=== PATIENT | male | born 1955 | race Caucasian/White ===

== ENCOUNTER → 2020-07-05 09:08 | Outpatient (CLI) | payer MEDICARE, OTHER, SELFPAY ==
--- NOTE | ~2020-07-05 | US_ITS ---
EXAMINATION: US aorta [facility] DATE: 07/05/2020 09:35 INDICATION: Abdominal aortic aneurysm screening. TECHNIQUE: Grayscale, color Doppler, and pulsed Doppler images of the aorta and common iliac arteries were obtained. COMPARISON: CT abdomen and pelvis 07/10/2011 FINDINGS: The aorta demonstrates a 3.6 cm fusiform infrarenal aneurysm. The common iliac arteries are not visua lized. IMPRESSION: 1. 3.6 cm fusiform infrarenal aortic aneurysm. Reviewed, dictated and finalized at location A. NFIELD REDEVELOPMENT SPECIALIST
--- NOTE | ~2020-07-05 | CT_ITS ---
EXAMINATION: CT lung screening DATE: 07/05/2020 09:40 INDICATION: Personal history of tobacco dependence, prior smoker with 60 pack year history TECHNIQUE: Computed tomography (CT) of the chest was performed without intravenous contrast. The dose -length product (DLP) was 235.83 mGy-cm. 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 COMPARISON: 07/03/2019 FINDINGS: There is a stable 6 mm nodule in the right upper lobe projecting just posterior to the righ t mainstem bronchus on image 52. A 4 mm nodule is present in the right upper lobe on image 47. No add itional pulmonary nodules are identified. The lungs are free of acute opacities. Calcified right lindsay r and mediastinal lymph nodes are consistent with old granulomatous disease. There is no pleural effu susan or pneumothorax. Calcified coronary artery atherosclerosis is noted. No pathologically enlarged thoracic lymph nodes are identified. The heart size is normal. IMPRESSION: 1. Lung-RADS category 2: Benign appearance or behavior. Continue annual screening with noncontrast lo w-dose chest CT in 12 months. Reviewed, dictated and finalized at location A. E GROOVER IMPRESSION: 1. Lung-RADS category 2: Benign appearance or behavior. Continue annual screeni ng with noncontrast low-dose chest CT in 12 months.
== END ==
PROVIDERS: PCP Family Medicine; Visit Provider Family Medicine
DX: Z13.6 Encounter for screening for cardiovascular disorders (principal); Z87.891 Personal history of nicotine dependence; I71.4 Abdominal aortic aneurysm, without rupture
CPT/HCPCS: 76706; G0297

== ENCOUNTER → 2020-12-13 09:27 | Outpatient (REF) | payer MEDICARE, OTHER, SELFPAY | LOC: ANHLAB 09:27 | PROVIDERS: PCP Family Medicine; Visit Provider Nurse Practitioner | DX: L30.9 Dermatitis, unspecified (principal); L57.0 Actinic keratosis | CPT/HCPCS: 88305; 88312 ==

== ENCOUNTER → 2020-12-29 13:30 | Outpatient (REF) | payer MEDICARE, OTHER, SELFPAY | LOC: ANHLAB 13:30 | PROVIDERS: PCP Family Medicine; Visit Provider Nurse Practitioner | DX: C44.619 Basal cell carcinoma of skin of left upper limb, including shoulder (principal) | CPT/HCPCS: 88305 ==

== ENCOUNTER 2021-06-16 00:38 | Inpatient (IN) | payer MEDICARE, OTHER, SELFPAY ==
[2021-06-16] VITALS (38 sets, daily range): BP systolic 76–150; BP diastolic 43–138; PULSE 63–81; RESP 16–31; TEMP 36.2–37.3; O2SAT 91–99; BMI 34.4
--- NOTE | ~2021-06-16 | US_ITS ---
US renal BI 06/16/2021 16:40 Procedure: Realtime transabdominal ultrasound of the kidneys and bladder. Indication: Acute renal failure Comparison: No prior studies for comparison. Findings: Renal echotexture is normal bilaterally without hydronephrosis, contour deforming mass or r enal calculus. The right kidney measures 11.3 cm and left kidney measures 11.9 cm. There is a Miller c atheter in the bladder. Impression: 1: Unremarkable renal ultrasound. No stones, masses or hydronephrosis. Reviewed, dictated and finalized at location A. RING MACHINE OPERATOR HELPER Impression: 1: Unremarkable renal ultrasound. No stones, masses or hydronephrosis.
--- NOTE | ~2021-06-16 | XR_ITS ---
EXAMINATION: XR chest 1V portable EXAM DATE: 06/25/2021 17:55 INDICATION: New O2 requirement. TECHNIQUE: Portable AP frontal chest x-ray was obtained. Comparison is made to prior examination from 06/16/2021. FINDINGS: Some scattered linear opacities consistent with subsegmental atelectasis. No confluent cons olidation, pneumothorax or pleural effusion suspected. The cardiomediastinal silhouette is prominent but magnified on this AP technique. IMPRESSION: Persistent linear opacities, most consistent with subsegmental atelectasis. Reviewed, dictated and finalized at location A. TRIC TRUCK DRIVER IMPRESSION: Persistent linear opacities, most consistent with subsegmental atel ectasis.
--- NOTE | ~2021-06-16 | CT_ITS ---
EXAMINATION: CT abdomen pelvis wo con EXAM DATE: 06/16/2021 04:30 INDICATION: Abdominal pain and diarrhea. TECHNIQUE: Spiral CT of the abdomen and pelvis was performed without contrast. Axial, coronal and s agittal images of the abdomen and pelvis were reviewed. The dose-length product (DLP) for this exami [facility] was 1299.94 mGy-cm. The exposure was tailored according to patient size (auto mA exposure con trol), and iterative reconstruction (ASIR) was used as additional dose reduction technique. Compariso n is made to prior examination from 07/10/2011. FINDINGS: The liver, spleen, adrenal glands and pancreas are unremarkable. Gallbladder is unremarkab le. No biliary obstruction. There is no nephrolithiasis or hydronephrosis. The prostate is unrema rkable. The bladder is unremarkable. There is no retroperitoneal or pelvic lymphadenopathy. There is moderate scattered arteriosclerotic disease. Mildly dilated infrarenal abdominal aorta at 3.4 cm (was 3.1 cm in 2011). There are no findings to suggest appendicitis. There is mild inflammation surrounding the duodenum, with wall thickening suspected. Probably duodenitis/peptic ulcer disease. No discrete ulceration iden tified. No perforation. Mild thickening of the rectosigmoid colon with colonic fluid also present, co rrelate for mild colitis, diarrhea. No free intraperitoneal gas. The heart is normal in size. There are no pericardial or pleural effusions. Right basilar subsegmental atelectasis. There are no osteoblastic or osteolytic lesions identified. IMPRESSION: 1. Suspicion of diarrhea, mild colitis. 2. Mild duodenitis/peptic ulcer disease. 3. Mild mid abdominal aortic fusiform 3.4 cm aneurysm. Reviewed, dictated and finalized at location D. INSPECTOR
--- NOTE | ~2021-06-16 | XR_ITS ---
EXAMINATION: XR chest 1V portable DATE: 06/16/2021 01:36 INDICATION: Weakness and diarrhea. TECHNIQUE: frontal view of the chest was obtained. COMPARISON: Chest radiograph dated 06/17/2017 FINDINGS: Opacities at the bilateral lung bases, right greater than left. No pulmonary edema, pleural effusion or pneumothorax. The cardiomediastinal silhouette is normal. IMPRESSION: 1. Bibasilar opacities with appearance on subsequent CT favoring atelectasis over pneumonia. Reviewed, dictated and finalized at location A. CTURAL ENGINEERING PROJECT MANAGER IMPRESSION: 1. Bibasilar opacities with appearance on subsequent CT favoring atelectasis ov er pneumonia.
[2021-06-16 01:00] LABS: Glucose Point of Care 58 mg/dl (65-105)
[2021-06-16 01:23] LABS: Glucose Point of Care 99 mg/dl (65-105)
[2021-06-16] MEDS: SODIUM CHLORIDE 0.9% IV 1,000 ML 999 ML IV CONT ×4 (01:36→06:51)
[2021-06-16 01:38] LABS: Basophils Percent Auto 0.1 % (0.2-1.2); Hematocrit 32.4 % (42.0-52.0); Hemoglobin 7.5 g/dL (14.0-18.0); Immature Granulocyte Absolute 0.02 K/mm3 (0.00-0.031); Immature Granulocyte Percent A 0.3 % (0-0.5); Lymphocytes Absolute Auto 0.37 K/mm3 (0.9-3.2); Lymphocytes Percent Auto 5.3 % (18.3-44.2); Mean Corpuscular HGB Conc 23.1 g/dl (32-36); Mean Corpuscular Volume 133.9 fl (80-100); Mean Platelet Volume 10.5 fl (7.4-10.4); Monocytes Percent Auto 13.7 % (2.6-8.5); Neutrophils Absolute Auto 5.7 K/mm3 (1.3-6.7); Neutrophils Percent Auto 80.6 % (45.5-73.1); Platelet Count Result 94 k/mm3 (150-375); Red Blood Count 2.42 M/mm3 (4.6-6.20)
[2021-06-16 01:48] LABS: Lactic Acid Reflex 0.9 mmol/L (0.7-2.1)
--- NOTE | 2021-06-16 01:54 | ED.GENADULT ---
HPI - General Adult General Chief complaint: Unspecified Stated complaint: LOW BS, DEHYDRATION, DIARRHEA X 6 DAYS Time Seen by Provider: 06/16/21 01:19 History of Present Illness HPI narrative: Patient is a 65-year-old gentleman who presents the emergency department with chief complaint of generalized weakness diarrhea dehydration and low blood sugar. The patient is a diabetic and for the last several days has been having multiple bouts of diarrhea the patient reports has not been taking his insulin but has been less active in. Patient states he has little bit of discomfort in his abdomen reports that he feels very weak and rundown. The patient denies chest pain denies shortness of breath. Related Data Home Medications Medication Instructions Recorded Confirmed aspirin 81 mg tablet,delayed 81 mg PO DAILY 06/26/19 05/30/21 release cinnamon bark 500 mg capsule 500 mg PO DAILY 06/26/19 05/30/21 multivitamin 1 tablet PO DAILY 06/26/19 05/30/21 omega-3 fatty acids 500 mg capsule 500 mg PO DAILY 06/26/19 05/30/21 metoprolol tartrate 50 mg tablet 50 mg PO Q12H 10/24/20 05/30/21 Allergies Allergy/AdvReac Type Severity Reaction Status Date / Time No Known Allergies Allergy Verified 05/30/21 07:51 Review of Systems Review of Systems: A 10 system review of systems was completed on the patient and is negative except for what is stated in the HPI. Nursing and ancillary documentation was reviewed. [facility] Past Medical History Medical History Abdominal aortic aneurysm (AAA) History of amputation of great toe Obesity Surgical History Surgical History History of surgical removal of ganglion cyst Status post removal of part of parathyroid Family History Family History Father Hypertension Family history of lung cancer Sibling Patient's sister is in good health Patient's brother is in good health Mother Breast cancer Social History Social History Smoking status: Former smoker Tobacco type: cigarettes Second hand tobacco smoke exposure: No Smoking end date: 07/15/04 Alcohol intake: former Substance use: never Substance use type: does not use Gender identity (if verbalized by the patient): Male Sexual Orientation (if Verbalized by the Patient): Straight or Heterosexual Exam Narrative: GENERAL: Well-appearing, well-nourished, and in no acute distress. HEAD: Normocephalic, atraumatic. EYES: PERRLA and EOMI. ENT: Nares clear, no rhinorrhea or epistaxis. Mucous membranes moist. NECK: Supple. CHEST: Clear to auscultation. No respiratory distress. HEART: Regular rate and rhythm. No murmur heard. Normal peripheral pulses. ABDOMEN: Soft, nontender, nondistended, normal active bowel sounds. EXTREMITIES: Normal range of motion. No edema. SKIN: Warm, dry, no rash. NEURO: No focal deficits. Alert and oriented x3. PSYCH: Normal mood and affect. Course Vital Signs Vital signs: Vital Signs Pulse Rate 65 06/16/21 00:46 Respiratory Rate 20 06/16/21 00:46 Blood Pressure 78/47 L 06/16/21 00:46 Pulse Oximetry 95 06/16/21 00:46 Temperature 36.6 C 06/16/21 04:04 Pulse Rate 70 06/16/21 05:23 Respiratory Rate 18 06/16/21 05:23 Blood Pressure 101/58 L 06/16/21 06:19 Pulse Oximetry 96 06/16/21 05:23 Medical Decision Making Vital Signs Vital Signs: Vital Signs Pulse Rate 65 06/16/21 00:46 Respiratory Rate 20 06/16/21 00:46 Blood Pressure 78/47 L 06/16/21 00:46 Pulse Oximetry 95 06/16/21 00:46 Temperature 36.6 C 06/16/21 04:04 Pulse Rate 70 06/16/21 05:23 Respiratory Rate 18 06/16/21 05:23 Blood Pressure 101/58 L 06/16/21 06:19 Pulse Oximetry 96 06/16/21 05:23 Lab Data Result diagrams
[2021-06-16 02:21] LABS: Alveolar/Arterial O2 Gradient 38.7 mmHg; Base Excess ABG -21.3 mEq/l (+/-2.0); Fractional Inspired Oxygen 21 %; HCO3 ABG 7.9 mEq/l (22.0-26.0); Oxygen Content ABG 19.2 %vol (16.0-22.0); Oxygen Saturation ABG 88.9 % (95.0-100.0); Oxyhemoglobin 90.5 % THb (90.0-100.0); PO2 ABG 76.3 mmHg (80.0-100.0); PO2 FiO2 Ratio Arterial Blood 3.63 %; Total Hemoglobin 15.1 g/dL (12.0-18.0)
[2021-06-16 02:23] LABS: Modified Allen's Test Pass; Site Drawn RIGHT RADIAL; pH ABG 7.054 (7.350-7.450)
[2021-06-16 02:24] LABS: Device ROOM AIR
[2021-06-16 02:52] LABS: Hematocrit 46.4 % (42.0-52.0)
[2021-06-16 03:18] LABS: Troponin I 0.022 ng/mL (0.000-0.034)
[2021-06-16 04:16] LABS: Estimated CRCL calculation 8 ml/min; Estimated Glomerular Filt Rate 5
[2021-06-16 05:09] LABS: Add Urine Microscopic? YES; Appearance Urine Cloudy (Clear); Bacteria Urine Trace /hpf; Bilirubin Urine Negative (Negative); Blood Urine Negative (Negative); Color Urine Amber (Yellow); Glucose Urine UA Negative (Negative); Ketones Urine Negative (Negative); Leukocyte Esterase Ur Negative LEU/UL (Negative); Mucus Urine Rare /lpf; Nitrate Urine Negative (Negative); Protein Urine 2+ mg/dL (Negative); RBC Urine 0-2 /hpf (0-2); Specific Grav Ur 1.021 (1.001-1.035); Squamous Epithelial Cell Urine Rare /hpf (Few); Urobilinogen Urine Negative mg/dL (<2.0)
[2021-06-16 05:45] LABS: Glucose Point of Care 31 mg/dl (65-105)
[2021-06-16] MEDS: DEXTROSE 50% 25 GM/50 ML SYRINGE (05:52)
[2021-06-16] MEDS: SODIUM BICARBONATE 8.4% 150 MEQ in DEXTROSE 5% 1,000 ML 950 ML IV CONT (06:04)
[2021-06-16] MEDS: SODIUM CHLORIDE 0.9% IV 1,000 ML 200 ML IV CONT ×2 (06:07→09:43)
[2021-06-16] MEDS: DEXTROSE 10% 1,000 ML 50 ML IV CONT (06:28)
[2021-06-16 06:51] LABS: Glucose Point of Care 86 mg/dl (65-105)
--- NOTE | 2021-06-16 07:05 | PC.NURSE ---
Received report from Alexander MCKAY, will continue fluids, after NS bolus will continue 200ml/hr NS, pt is alert at this time
[2021-06-16 07:21] LABS: Alanine Aminotransferase 28 U/L (4-50); Albumin Level 3.1 g/dL (3.5-5.1); Alkaline Phosphatase 37 U/L (38-126); Anion Gap 21 mmol/L (8-16); Aspartate Amino Transferase 51 U/L (17-59); Bilirubin,Total 0.2 mg/dL (0.2-1.3); Calcium 5.8 mg/dL (8.4-10.2); Carbon Dioxide 10 mmol/L (22-30); Chloride 97 mmol/L (98-107); Estimated CRCL calculation 10 ml/min; Estimated Glomerular Filt Rate 6; Glucose 104 mg/dL (65-110); Magnesium 2.2 mg/dL (1.6-2.3); Potassium 4.3 mmol/L (3.4-5.0); Sodium 128 mmol/L (137-145)
--- NOTE | 2021-06-16 08:02 | ED.GENADULT ---
HPI - General Adult General Chief complaint: Unspecified Stated complaint: LOW BS, DEHYDRATION, DIARRHEA X 6 DAYS Time Seen by Provider: 06/16/21 01:19 Related Data Home Medications Medication Instructions Recorded Confirmed aspirin 81 mg tablet,delayed 81 mg PO DAILY 06/26/19 05/30/21 release cinnamon bark 500 mg capsule 500 mg PO DAILY 06/26/19 05/30/21 multivitamin 1 tablet PO DAILY 06/26/19 05/30/21 omega-3 fatty acids 500 mg capsule 500 mg PO DAILY 06/26/19 05/30/21 metoprolol tartrate 50 mg tablet 50 mg PO Q12H 10/24/20 05/30/21 Allergies Allergy/AdvReac Type Severity Reaction Status Date / Time No Known Allergies Allergy Verified 05/30/21 07:51 [facility] Past Medical History Medical History Abdominal aortic aneurysm (AAA) History of amputation of great toe Obesity Surgical History Surgical History History of surgical removal of ganglion cyst Status post removal of part of parathyroid Family History Family History Father Hypertension Family history of lung cancer Sibling Patient's sister is in good health Patient's brother is in good health Mother Breast cancer Social History Social History Smoking status: Former smoker Tobacco type: cigarettes Second hand tobacco smoke exposure: No Smoking end date: 07/15/04 Alcohol intake: former Substance use: never Substance use type: does not use Gender identity (if verbalized by the patient): Male Sexual Orientation (if Verbalized by the Patient): Straight or Heterosexual Course Reevaluation(s) Reevaluation #1: Patient was signed to me by Dr. Yarbrough at shift change, waiting for electrolyte results. Date: 06/16/21 Time: 09:15 Consultations Consultation #1: DR ROMERO, accepted the consult Date: 06/16/21 Time: 10:50 Consultation #2: DR BRYANT Date: 06/16/21 Time: 10:51 Vital Signs Vital signs: Vital Signs Pulse Rate 65 06/16/21 00:46 Respiratory Rate 20 06/16/21 00:46 Blood Pressure 78/47 L 06/16/21 00:46 Pulse Oximetry 95 06/16/21 00:46 Temperature 36.6 C 06/16/21 04:04 Pulse Rate 74 06/16/21 09:31 Respiratory Rate 21 H 06/16/21 09:31 Blood Pressure 101/63 06/16/21 09:31 Pulse Oximetry 95 06/16/21 09:31 Medical Decision Making Vital Signs Vital Signs: Vital Signs Pulse Rate 65 06/16/21 00:46 Respiratory Rate 20 06/16/21 00:46 Blood Pressure 78/47 L 06/16/21 00:46 Pulse Oximetry 95 06/16/21 00:46 Temperature 36.6 C 06/16/21 04:04 Pulse Rate 74 06/16/21 09:31 Respiratory Rate 21 H 06/16/21 09:31 Blood Pressure 101/63 06/16/21 09:31 Pulse Oximetry 95 06/16/21 09:31 Lab Data Result diagrams: 06/16/21 02:40 06/16/21 06:28 Labs: Lab Results 06/16/21 06/16/21 06/16/21 Range/Units 00:57 01:20 01:29 WBC 7.0 (4.5-10.0) K/mm3 RBC 2.42 L (4.6-6.20) M/mm3 Hgb 7.5 L (14.0-18.0) g/dL Hct 32.4 L (42.0-52.0) % MCV 133.9 H (80-100) fl MCH 31.0 (26-34) pg MCHC 23.1 L (32-36) g/dl RDW 15.0 H (11.5-14.5) % Plt Count 94 L (150-375) k/mm3 MPV 10.5 H (7.4-10.4) fl Immature Gran % (Auto) 0.3 (0-0.5) % Neut % (Auto) 80.6 H (45.5-73.1) % Lymph % (Auto) 5.3 L (18.3-44.2) % Drew % (Auto) 13.7 H (2.6-8.5) % Eos % (Auto) 0.0 (0-4.4) % Baso % (Auto) 0.1 L (0.2-1.2) % Lymph # (Auto) 0.37 L (0.9-3.2) K/mm3 Drew # (Auto) 1.0 H (0.1-0.6) K/mm3 Eos # (Auto) 0.0 (0-0.3) K/mm3 Baso # (Auto) 0.0 (0.0-0.1) K/mm3 Abs Immat Gran (auto) 0.02 (0.00-0.031) K/mm3 Absolute Neuts (auto) 5.7 (1.3-6.7) K/mm3 Absolute Nucleated RBC 0.0 (0.0-0.012) K/mm3 Nucleated RBC % 0.0 (0.0-0.2) % Sodium
--- NOTE | 2021-06-16 08:48 | PC.NURSE ---
Blood Sugar 80
[2021-06-16 08:51] LABS: Glucose Point of Care 80 mg/dl (65-105)
[2021-06-16 09:18] LABS: Alveolar/Arterial O2 Gradient 48.5 mmHg; Base Excess ABG -17.9 mEq/l (+/-2.0); Fractional Inspired Oxygen 21 %; HCO3 ABG 9.4 mEq/l (22.0-26.0); Oxygen Saturation ABG 88.8 % (95.0-100.0); Oxyhemoglobin 90.2 % THb (90.0-100.0); PCO2 ABG 27.2 mmHg (35.0-45.0); PO2 ABG 68.7 mmHg (80.0-100.0); PO2 FiO2 Ratio Arterial Blood 3.27 %; Total Hemoglobin 14.2 g/dL (12.0-18.0)
[2021-06-16 09:19] LABS: Device ROOM AIR; Modified Allen's Test Pass; Site Drawn RIGHT RADIAL; pH ABG 7.155 (7.350-7.450)
[2021-06-16 09:43] LABS: Blood Urea Nitrogen 148 mg/dL (9-20)
--- NOTE | 2021-06-16 10:01 | ECG_ITS ---
Measurements Intervals [place] Rate: 72 P: 27 MN: 193 QRS: -58 QRSD: 97 T: 18 QT: 381 QTc: 419 Interpretive Statements SINUS RHYTHM LEFT AXIS DEVIATION INCOMPLETE RIGHT BUNDLE BRANCH BLOCK DELAYED PRECORDIAL R/S TRANSITION BORDERLINE ST-T WAVE ABNORMALITY- HIGH LATERAL LEADS BASELINE ARTIFACT- I, II, III, AVR, AVL, AVF, V1-V2, V6 BORDERLINE ECG Electronically Signed On 06-21-2021 12:23:46 BLOCKING MACHINE TENDER by Roge Tovar D.O.
--- NOTE | 2021-06-16 10:07 | PC.NURSE ---
Awaiting another bag of Zithromax from pharmacy other bag busted in tube
--- NOTE | 2021-06-16 10:30 | PC.NURSE ---
Pt states he would like to have CPR if his heart stopped
--- NOTE | 2021-06-16 10:55 | PC.NURSE ---
Attempted to call report to ICU, stated they will call me back
--- NOTE | 2021-06-16 10:57 | PC.NURSE ---
Pt oxygen sat 91-94%, placed pt on 2L oxygen
--- NOTE | 2021-06-16 11:13 | PC.NURSE ---
Called report to Marnie MCKAY, no further questions or concerns
[2021-06-16 12:05] LABS: Glucose Point of Care 73 mg/dl (65-105)
--- NOTE | 2021-06-16 12:22 | WPDCNINT ---
Assessment and Plan Assessment and plan (1) Sepsis: Code(s): A41.9 - Sepsis, unspecified organism Status: Acute Assessment and Plan: Secondary to colitis Patient has received IV fluid bolus and is on IV fluid maintenance Blood pressures improved with IV fluids need vasopressors Lactic acid was normal (2) Colitis: Code(s): K52.9 - Noninfective gastroenteritis and colitis, unspecified Status: Acute Assessment and Plan: Stool culture, WBC and C diff Rocephin and Flagyl IV Blood cultures also sent pending (3) Acute renal failure: Qualifiers: Acute renal failure type: unspecified Qualified Code(s): N17.9 - Acute kidney failure, unspecified Code(s): N17.9 - Acute kidney failure, unspecified Status: Acute Assessment and Plan: Likely prerenal which may have progressed to ATN Check CK level CT did not show any hydronephrosis stones Nephrology consulted IV fluids with bicarb for acidosis Monitor urine output electrolytes and creatinine (4) Metabolic acidosis: Code(s): E87.2 - Acidosis Status: Acute Assessment and Plan: IV fluids with bicarb (5) Thrombocytopenia: Code(s): D69.6 - Thrombocytopenia, unspecified Status: Acute Assessment and Plan: Likely secondary to sepsis Baseline unknown Hold anticoagulation Monitor levels (6) Hypoglycemia: Code(s): E16.2 - Hypoglycemia, unspecified Status: Acute Assessment and Plan: On D5 with bicarb and D50 infusion Monitor blood sugars and wean off the 51st (7) Electrolyte abnormality: Code(s): E87.8 - Other disorders of electrolyte and fluid balance, not elsewhere classified Status: Acute Assessment and Plan: Replace low calcium (8) GI bleed: Code(s): K92.2 - Gastrointestinal hemorrhage, unspecified Status: Acute Assessment and Plan: Patient states that he noticed blood in his stool and CT suggested nitrous or peptic ulcer disease NPO PPI IV q.12 hours Consult GI Monitor hemoglobin (9) Suspected COVID-19 virus infection: Code(s): Z20.822 - Contact with and (suspected) exposure to COVID-19 Status: Acute Assessment and Plan: COVID-19 suspected by ED physician although I do not see any infiltrates on lung bases on his abdominal CT. Patient also is vaccinated with a booster dose against COVID SARS-CoV-2 PCR sent and results pending Patient is currently in Airborne, Droplet and Contact Isolation Additional Plan DVT prophylaxis -SCDs Stress ulcer prophylaxis -IV PPI Nutrition -NPO Code Status - Full Code Total Critical Care Time - 35 minutes Due to a high probability of clinically significant, life threatening deterioration, the patient required my highest level of preparedness to intervene emergently and I personally spent this critical care time directly and personally managing the patient. This critical care time included obtaining a history; examining the patient; pulse oximetry; ordering and review of studies; arranging urgent treatment with development of a management plan; evaluation of patient's response to treatment; frequent reassessment; and discussions with other providers. It was exclusive of separately billable procedures and treating other patients and teaching time. Please see Assessment and Plan section and the rest of the note for further information on patient assessment and treatment Fire Information Officer Consult Note Consult date: 06/16/21 HPI: Amaury Denton is a 65 year old male presented to the emergency department today with chief complaint of generalized weakness diarrhea dehydration and low blood sugar. The patient is a diabetic and for the last several days has been having multiple bouts of diarrhea the patient reports has not been taking his insulin or other medication. In ER patient was found to be hypoglycemic, hypotensive, dehydrated and acute kidney injury. Patient was given IV fluid
--- NOTE | 2021-06-16 12:48 | ADMGEN ---
This patient, Amaury Denton, was admitted to Intensive Care Unit-3 at 1230 on 06/16/2021. Report received from Cheyanne MCKAY. Patient/family oriented to hospital policies and general routines including ID bracelet, bed and alarms, visiting hours, pain management, procedures, bathroom and other care routines, personal items, smoking policy, room service/diet, and visiting hours. Information on how to activate the Rapid Response Team has been discussed. Patient/Family are encouraged to report perceived risks to care and to ask questions if they do not understand what they are told or what they should do.
[2021-06-16] MEDS: SODIUM BICARBONATE 8.4% 50 MEQ/50 ML SYRINGE 100 MEQ IV PUSH (13:23)
[2021-06-16] MEDS: metroNIDAZOLE 500 MG/ISO 100ML 500 MG/100 ML BAG 100 MG IVPB ×2 (13:36→21:22)
[2021-06-16] MEDS: SODIUM BICARBONATE 8.4% 100 MEQ in DEXTROSE 5% 1,000 ML 1,000 ML 150 MEQ IV CONT ×2 (13:44→21:16)
[2021-06-16] MEDS: SODIUM BICARBONATE 8.4% 50 MEQ/50 ML SYRINGE 100 MEQ (13:46)
[2021-06-16] MEDS: CALCIUM GLUC 2,000 MG/NS 100ML 2,000 MG/100 ML BAG 100 MG IVPB (13:50)
[2021-06-16 13:56] LABS: Glucose Point of Care 75 mg/dl (65-105)
[2021-06-16 14:29] LABS: Anion Gap 22 mmol/L (8-16); Calcium 5.3 mg/dL (8.4-10.2); Carbon Dioxide 12 mmol/L (22-30); Chloride 97 mmol/L (98-107); Estimated CRCL calculation 11 ml/min; Estimated Glomerular Filt Rate 6; Glucose 70 mg/dL (65-110); Potassium 3.8 mmol/L (3.4-5.0); Sodium 131 mmol/L (137-145)
[2021-06-16 14:33] LABS: Creatine Kinase 1483 U/L (55-170)
[2021-06-16 14:39] LABS: Troponin I 0.023 ng/mL (0.000-0.034)
[2021-06-16 14:58] LABS: Blood Urea Nitrogen 148 mg/dL (9-20)
--- NOTE | 2021-06-16 15:03 | PM.IMHP ---
H&P: HPI History of Present Illness Date/Time: 06/16/21 15:03 this is a 65-year-old male patient who resides with his . He has a history of hypertension, diabetes, and hyperlipidemia. The patient came to the emergency room due to diarrhea for [address] of the abdomen pelvis is read as suspicious of diarrhea, mild colitis. Mild duodenitis, peptic ulcer disease. Mild mid abdominal aortic fusiform 3.4 cm aneurysm. ABGs pH 7.155 CO2 27.2 PO2 68.7. Patient's sodium level was 128 and is now 131. Creatinine 8.9 down to 8.4. BUN 148 still. Estimated GFR is 6. Calcium is low at 5.3 blood sugar 86-75. Total creatinine kinase 1483. Troponin was undetectable. COVID test pending. The patient was started on bicarb drip. It was also started on D5 with bicarb and D50 infusion. According to the family the patient had been having multiple bowel movements 10-15 a day. The patient has been fully vaccinated against COVID and received a booster dose. Patient had been feeling weak and tired with a decreased urine output. The patient was given at least 4 IV fluid boluses in the emergency room. He was started on azithromycin Rocephin and Flagyl in the emergency room. He is also given calcium gluconate in the emergency room x1. The patient is being admitted to inpatient services on the date of service of 06/16/2021. Chief Complaint: weak Review of Systems Review of Systems: All systems reviewed & are unremarkable except as noted in HPI and below Constitutional: Constitutional: Reports as per HPI and Reports no additional constitutional complaints Eyes: Eyes: Reports as per HPI and Reports no additional eye complaints ENT: Reports system reviewed and no additional complaints, except as documented and Reports Normal hearing present Cardiovascular: Cardiovascular: Reports no additional cardiovascular complaints Respiratory: Respiratory: Reports no additional respiratory complaints and Reports no additional respiratory complaints Gastrointestinal: Gastrointestinal: Reports as per HPI and Reports no additional gastrointestinal complaints Musculoskeletal: Musculoskeletal: Reports no additional musculoskeletal complaints Integumentary/Breasts: Skin/Breast: Reports system reviewed and no additional complaints, except as docu and Reports as per HPI Neurologic: Reports system reviewed and no additional complaints, except as documented, Reports as per HPI and Reports Normal hearing present Psychiatric: Psychiatric: Reports no additional psychiatric complaints and Reports as per HPI Endocrine: Endocrine: Reports no additional endocrine complaints Hematologic/Lymphatic: Hematologic/Lymphatic: Reports no additional hematologic/lymphatic complaints Allergic/Immunologic: Allergic/Immunologic: Reports no additional allergic/immunologic complaints [facility] Past Medical History Medical History (Updated 06/16/21 @ 15:20 by Ana Paula Devine NP) Abdominal aortic aneurysm (AAA) DM2 (diabetes mellitus, type 2) History of amputation of great toe HTN (hypertension), benign Hyperlipidemia Obesity Surgical History Surgical History History of surgical removal of ganglion cyst Status post removal of part of parathyroid Family History Family History Father Hypertension Family history of lung cancer Sibling Patient's sister is in good health Patient's brother is in good health Mother Breast cancer Social History Social History Social History: The patient stated that he used to smoked. The patient lives with his . The patient lives with his who is the durable power security auditor for healthcare. 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 Code status full code Smoking status: Former smoker Tobacco type: cigarettes Second
[2021-06-16 15:17] LABS: Glucose Point of Care 83 mg/dl (65-105)
--- NOTE | 2021-06-16 15:40 | PM.CNNEP ---
Assessment and Plan Assessment and plan (1) Acute renal failure: Qualifiers: Acute renal failure type: unspecified Qualified Code(s): N17.9 - Acute kidney failure, unspecified Code(s): N17.9 - Acute kidney failure, unspecified Status: Acute Assessment and Plan: The patient has acute kidney injury on top of normal kidney function. The patient looks dehydrated and is history fits with this. Most likely the patient has severe diarrhea leading to dehydration and metabolic acidosis. The patient will get IV fluids with bicarb. To evaluate this we will get urine electrolytes and a renal ultrasound. Will check a CPK to rule out rhabdomyolysis he has low likelihood of having of glomerulonephritis or interstitial nephritis in this clinical scenario.. (2) Sepsis: Code(s): A41.9 - Sepsis, unspecified organism Status: Acute Assessment and Plan: The patient has blood cultures drawn in is on antibiotics. His blood pressure looks pretty good right now. He is avoiding pressors so far. (3) Metabolic acidosis: Code(s): E87.2 - Acidosis Status: Acute Assessment and Plan: CO2 is very low. He is getting a bicarb drip. He was on metformin but his lactic acid is normal (4) Suspected COVID-19 virus infection: Code(s): Z20.822 - Contact with and (suspected) exposure to COVID-19 Status: Acute Assessment and Plan: he is on isolation (5) Anemia: Qualifiers: Anemia type: unspecified type Qualified Code(s): D64.9 - Anemia, unspecified Code(s): D64.9 - Anemia, unspecified Status: Acute Assessment and Plan: hemoglobin is only 7.5. Will start Epogen (6) Acute hyponatremia: Code(s): E87.1 - Hypo-osmolality and hyponatremia Status: Acute Assessment and Plan: sodium level is mildly low. This is probably related to his dehydration and renal failure. (7) HTN (hypertension), benign: Code(s): I10 - Essential (primary) hypertension Status: Chronic Assessment and Plan: His blood pressure is well controlled (8) DM2 (diabetes mellitus, type 2): Code(s): E11.9 - Type 2 diabetes mellitus without complications Status: Chronic Assessment and Plan: he is on Accu-Cheks and sliding-scale insulin (9) Hyperlipidemia: Code(s): E78.5 - Hyperlipidemia, unspecified Status: Chronic Assessment and Plan: he is on simvastatin History of Present Illness Reason for Consult Consult date: 06/16/21 Chief Complaint Chief complaint: Acute hypoxic respiratory failure/acute renal fail History of Present Illness Narrative: Amaury is a very pleasant 65-year-old gentleman who has multiple medical problems including hypertension, diabetes for many years without retinopathy,Hyperlipidemia, abdominal aortic aneurysm, amputation of the great toe, and obesity. his history giving is not extremely reliable. The patient says that he has been sick for about 3 weeks or so. He has had diarrhea with liquid stools. He has had some nausea and vomiting as well. This is gradually worsened over the last few weeks.He says he has been eating okay but not great. he has not had any bloody urine, foamy urine, kidney stones, or bladder infections. No pain with urination. He takes ibuprofen every once in a while but has not taken any of this for weeks. However it was the worst over the last week or so. He says he has continued to take his medications. He has diabetes. He has had this for about 15 or 20 years. He does not have retinopathy that he knows of. Review of Systems Constitutional: Constitutional: Reports no additional constitutional complaints Eyes: Eyes: Reports no additional eye complaints ENT: Reports system reviewed and no additional complaints, except as documented Cardiovascular: Cardiovascular: Reports no additional cardiovascular compl
[2021-06-16 16:18] LABS: Glucose Point of Care 87 mg/dl (65-105)
[2021-06-16 17:00] LABS: Hematocrit 37.3 % (42.0-52.0); Hemoglobin 13.1 g/dL (14.0-18.0); Mean Corpuscular HGB Conc 35.1 g/dl (32-36); Mean Corpuscular Hemoglobin 29.8 pg (26-34); Mean Platelet Volume 10.2 fl (7.4-10.4); Platelet Count Result 149 k/mm3 (150-375); Red Blood Count 4.39 M/mm3 (4.6-6.20); Red Cell Distribution Width 13.1 % (11.5-14.5); White Blood Count 10.8 K/mm3 (4.5-10.0)
[2021-06-16 17:00] LABS: Glucose Point of Care 79 mg/dl (65-105)
[2021-06-16 17:14] LABS: Creatine Kinase 1469 U/L (55-170)
[2021-06-16 17:32] LABS: Troponin I 0.026 ng/mL (0.000-0.034)
[2021-06-16 17:55] LABS: SARS-CoV-2 RNA PCR Negative
[2021-06-16 18:07] LABS: Glucose Point of Care 90 mg/dl (65-105)
[2021-06-16 18:23] LABS: Alveolar/Arterial O2 Gradient 185.2 mmHg; Base Excess ABG -10.8 mEq/l (+/-2.0); Fractional Inspired Oxygen 40 %; HCO3 ABG 14.1 mEq/l (22.0-26.0); Oxyhemoglobin 91.2 % THb (90.0-100.0); PCO2 ABG 28.7 mmHg (35.0-45.0); PO2 FiO2 Ratio Arterial Blood 1.67 %; Total Hemoglobin 11.7 g/dL (12.0-18.0); pH ABG 7.309 (7.350-7.450)
[2021-06-16 18:27] LABS: Modified Allen's Test Pass; Site Drawn RIGHT RADIAL
[2021-06-16 18:28] LABS: Device NASAL CANNULA; Liters per Minute 4.5 LPM
[2021-06-16 18:50] LABS: Creatinine Urine 175.6 mg/dL; Total Protein Urine Random 118 mg/dL; Ur Ttl Prot Creatinine Ratio 0.67 mg/mg (0-0.20)
[2021-06-16 18:52] LABS: Sodium Urine Random 32 meq/L
[2021-06-16 19:05] LABS: Glucose Point of Care 84 mg/dl (65-105)
[2021-06-16 20:00] LABS: Glucose Point of Care 106 mg/dl (65-105)
[2021-06-16 21:01] LABS: Glucose Point of Care 104 mg/dl (65-105)
[2021-06-16] MEDS: PANTOPRAZOLE SODIUM IV 40 MG VIAL IV PUSH (21:18)
[2021-06-16 21:35] LABS: Hematocrit 35.4 % (42.0-52.0); Hemoglobin 12.6 g/dL (14.0-18.0); Mean Corpuscular HGB Conc 35.6 g/dl (32-36); Mean Corpuscular Volume 84.3 fl (80-100); Mean Platelet Volume 10.4 fl (7.4-10.4); Platelet Count Result 144 k/mm3 (150-375); Red Cell Distribution Width 13.1 % (11.5-14.5); White Blood Count 10.9 K/mm3 (4.5-10.0)
[2021-06-16 21:50] LABS: Glucose Point of Care 111 mg/dl (65-105)
[2021-06-16 21:51] LABS: Anion Gap 16 mmol/L (8-16); Blood Urea Nitrogen > 120 mg/dL (9-20); Calcium 5.2 mg/dL (8.4-10.2); Carbon Dioxide 15 mmol/L (22-30); Chloride 93 mmol/L (98-107); Estimated CRCL calculation 11 ml/min; Estimated Glomerular Filt Rate 7; Glucose 129 mg/dL (65-110); Potassium 3.4 mmol/L (3.4-5.0); Sodium 124 mmol/L (137-145)
[2021-06-16 22:59] LABS: Glucose Point of Care 97 mg/dl (65-105)
[2021-06-16] MEDS: KCL 20 MEQ/SW 100 ML 100 ML 50 MEQ IVPB (23:47)
[2021-06-16 23:53] LABS: Glucose Point of Care 102 mg/dl (65-105)
[2021-06-17] VITALS (13 sets, daily range): BP systolic 93–124; BP diastolic 55–72; PULSE 63–70; RESP 21–26; TEMP 36.5–37; O2SAT 90–95
[2021-06-17 00:51] LABS: Glucose Point of Care 89 mg/dl (65-105)
[2021-06-17 01:14] LABS: Anion Gap 17 mmol/L (8-16); Calcium 5.2 mg/dL (8.4-10.2); Carbon Dioxide 14 mmol/L (22-30); Chloride 96 mmol/L (98-107); Estimated CRCL calculation 10 ml/min; Estimated Glomerular Filt Rate 6; Glucose 107 mg/dL (65-110); Potassium 3.6 mmol/L (3.4-5.0); Sodium 127 mmol/L (137-145)
[2021-06-17 01:21] LABS: Blood Urea Nitrogen 146 mg/dL (9-20)
[2021-06-17 01:47] LABS: Glucose Point of Care 102 mg/dl (65-105)
[2021-06-17 02:53] LABS: Glucose Point of Care 102 mg/dl (65-105)
[2021-06-17] MEDS: SODIUM BICARBONATE 8.4% 100 MEQ in DEXTROSE 5% 1,000 ML 1,000 ML 150 MEQ IV CONT (05:14)
[2021-06-17] MEDS: metroNIDAZOLE 500 MG/ISO 100ML 500 MG/100 ML BAG 100 MG IVPB ×3 (05:15→20:40)
[2021-06-17 05:27] LABS: Glucose Point of Care 96 mg/dl (65-105)
[2021-06-17 05:57] LABS: Glucose Point of Care 84 mg/dl (65-105)
--- NOTE | 2021-06-17 06:00 | ECG_ITS ---
Measurements Intervals [place] Rate: 42 P: 4 CT: 166 QRS: -56 QRSD: 99 T: -9 QT: 396 QTc: 335 Interpretive Statements SINUS BRADYCARDIA ATRIAL PREMATURE COMPLEX INCOMPLETE RIGHT BUNDLE BRANCH BLOCK INFERIOR INFARCT, AGE INDETERMINATE BASELINE ARTIFACT- II, III, AVF, V1-V2, V6 ABNORMAL ECG Electronically Signed On 06-17-2021 12:25:55 [employer] VESSEL OPERATOR by Roge Tovar D.O.
[2021-06-17 06:42] LABS: Basophils Percent Auto 0.3 % (0.2-1.2); Eosinophils Percent Auto 0.3 % (0-4.4); Hematocrit 35.8 % (42.0-52.0); Immature Granulocyte Absolute 0.11 K/mm3 (0.00-0.031); Lymphocytes Absolute Auto 0.75 K/mm3 (0.9-3.2); Lymphocytes Percent Auto 6.5 % (18.3-44.2); Mean Corpuscular HGB Conc 36.3 g/dl (32-36); Mean Corpuscular Hemoglobin 30.7 pg (26-34); Mean Corpuscular Volume 84.4 fl (80-100); Mean Platelet Volume 10.3 fl (7.4-10.4); Monocytes Absolute Auto 1.4 K/mm3 (0.1-0.6); Monocytes Percent Auto 11.9 % (2.6-8.5); Neutrophils Absolute Auto 9.3 K/mm3 (1.3-6.7); Platelet Count Result 148 k/mm3 (150-375); Red Blood Count 4.24 M/mm3 (4.6-6.20); White Blood Count 11.6 K/mm3 (4.5-10.0)
[2021-06-17 06:58] LABS: Alanine Aminotransferase 32 U/L (4-50); Albumin Level 2.8 g/dL (3.5-5.1); Alkaline Phosphatase 49 U/L (38-126); Anion Gap 17 mmol/L (8-16); Aspartate Amino Transferase 62 U/L (17-59); Bilirubin,Total 0.2 mg/dL (0.2-1.3); Calcium 5.2 mg/dL (8.4-10.2); Carbon Dioxide 15 mmol/L (22-30); Chloride 93 mmol/L (98-107); Estimated CRCL calculation 10 ml/min; Estimated Glomerular Filt Rate 6; Glucose 92 mg/dL (65-110); Magnesium 1.8 mg/dL (1.6-2.3); Phosphorus 6.5 mg/dL (2.5-4.5); Potassium 3.3 mmol/L (3.4-5.0); Sodium 125 mmol/L (137-145)
[2021-06-17 07:13] LABS: Blood Urea Nitrogen 141 mg/dL (9-20)
[2021-06-17] MEDS: PANTOPRAZOLE SODIUM IV 40 MG VIAL IV PUSH ×2 (08:09→20:45)
[2021-06-17 08:41] LABS: Glucose Point of Care 100 mg/dl (65-105)
[2021-06-17] MEDS: FUROSEMIDE INJ 100 MG/10 ML VIAL 80 MG IV PUSH (09:30)
[2021-06-17] MEDS: KCL 20 MEQ/SW 100 ML 100 ML 50 MEQ IVPB ×2 (09:30→12:13)
[2021-06-17] MEDS: CALCIUM GLUC 2,000 MG/NS 100ML 2,000 MG/100 ML BAG 100 MG IVPB (09:30)
--- NOTE | 2021-06-17 10:00 | P.PNNP_ITS ---
Progress Note: A&P Assessment and Plan (1) Acute renal failure: Qualifiers: Acute renal failure type: unspecified Qualified Code(s): N17.9 - Acute kidney failure, unspecified Code(s): N17.9 - Acute kidney failure, unspecified Status: Acute Assessment and Plan: * suspect due to severe volume depletion/dehydration * however, cannot discount a component of renal hypoperfusion/ATN as well * his history of severe diarrhea likely explains his renal dysfunction and metabolic acidosis * evaluation to date demonstrates: * prerenal urine electrolytes * normal renal ultrasound * mildly elevated CPK (but not high enough to cause this degree of ERIC/ARF) * would continue bicarb IVFs for now * follow repeat labs and urine output (2) Sepsis: Code(s): A41.9 - Sepsis, unspecified organism Status: Acute Assessment and Plan: * likely secondary to colitis * BP better s/p aggressive IVF resuscitation * blood and stool cultures and C.diff toxin assay pending * no need for vasopressors at this time * follow trend of hemodynamics * on antibiotics (3) Metabolic acidosis: Code(s): E87.2 - Acidosis Status: Acute Assessment and Plan: * CO2 quite low on admission but better * receiving bicarb fluids to compensate * was on metformin but his lactic acid was normal * due to ERIC/ARF (4) Acute hyponatremia: Code(s): E87.1 - Hypo-osmolality and hyponatremia Status: Acute Assessment and Plan: * related to his dehydration and renal failure * should improve with IVF resuscitation * follow trend (5) HTN (hypertension), benign: Code(s): I10 - Essential (primary) hypertension Status: Chronic Assessment and Plan: * reasonable control at this time * follow trend of hemodynamics (6) DM2 (diabetes mellitus, type 2): Code(s): E11.9 - Type 2 diabetes mellitus without complications Status: Chronic Assessment and Plan: * follow Accu-Cheks * on sliding-scale insulin Will continue to follow. Subjective Date/time seen: 06/17/21 10:00 Chart reviewed; despite his severe renal dysfunction, he is awake and responsive and states that he overall feels better today in comparison to admission; subo ptimal urine output overnight but remains hemodynamically stable without any complaints of shortness of breath or chest pain; no other issues/events overnight or earlier this AM. Exam Narrative: General: WD/WN male in NAD Heart: normal S1 and S2; no rub Lungs: clear to auscultation Abdomen: soft, nontender, nondistended, positive bowel sounds Extremities: no cyanosis or clubbing; no edema Skin: warm and dry Objective Data Vital Signs Vital Signs: Vital Signs Temp Pulse Pulse Pulse Resp BP Pulse Ox 06/17/21 10:00 64 22 H 93/66 L 92 06/17/21 09:54 92 06/17/21 08:00 37.0 C 66 66 21 H 107/62 91 06/17/21 06:00 64 22 H 108/59 L 91 06/17/21 04:00 36.9 C 67 69 70 26 H 108/59 L 95 06/17/21 02:00 67 24 H 102/55 L 90 06/17/21 00:00 37.0 C 67 69 22 H 96/63 L 90 06/16/21 22:00 68 23 H 97/54 L 95 06/16/21 20:00 37.3 C 70 69 28 H 100/55 L 95 06/16/21 18:00 72 24 H 110/60 94 06/16/21 17:54 72 06/16/21 16:00 37.3 C 72 70 27 H 111/49 L 94
--- NOTE | 2021-06-17 10:00 | PM.PNNEP ---
Progress Note: A&P Assessment and Plan (1) Acute renal failure: Qualifiers: Acute renal failure type: unspecified Qualified Code(s): N17.9 - Acute kidney failure, unspecified Code(s): N17.9 - Acute kidney failure, unspecified Status: Acute Assessment and Plan: suspect due to severe volume depletion/dehydration however, cannot discount a component of renal hypoperfusion/ATN as well his history of severe diarrhea likely explains his renal dysfunction and metabolic acidosis evaluation to date demonstrates: prerenal urine electrolytes normal renal ultrasound mildly elevated CPK (but not high enough to cause this degree of ERIC/ARF) would continue bicarb IVFs for now follow repeat labs and urine output (2) Sepsis: Code(s): A41.9 - Sepsis, unspecified organism Status: Acute Assessment and Plan: likely secondary to colitis BP better s/p aggressive IVF resuscitation blood and stool cultures and C.diff toxin assay pending no need for vasopressors at this time follow trend of hemodynamics on antibiotics (3) Metabolic acidosis: Code(s): E87.2 - Acidosis Status: Acute Assessment and Plan: CO2 quite low on admission but better receiving bicarb fluids to compensate was on metformin but his lactic acid was normal due to ERIC/ARF (4) Acute hyponatremia: Code(s): E87.1 - Hypo-osmolality and hyponatremia Status: Acute Assessment and Plan: related to his dehydration and renal failure should improve with IVF resuscitation follow trend (5) HTN (hypertension), benign: Code(s): I10 - Essential (primary) hypertension Status: Chronic Assessment and Plan: reasonable control at this time follow trend of hemodynamics (6) DM2 (diabetes mellitus, type 2): Code(s): E11.9 - Type 2 diabetes mellitus without complications Status: Chronic Assessment and Plan: follow Accu-Cheks on sliding-scale insulin Will continue to follow. Subjective Date/time seen: 06/17/21 10:00 Chart reviewed; despite his severe renal dysfunction, he is awake and responsive and states that he overall feels better today in comparison to admission; suboptimal urine output overnight but remains hemodynamically stable without any complaints of shortness of breath or chest pain; no other issues/events overnight or earlier this AM. Exam Narrative: General: WD/WN male in NAD Heart: normal S1 and S2; no rub Lungs: clear to auscultation Abdomen: soft, nontender, nondistended, positive bowel sounds Extremities: no cyanosis or clubbing; no edema Skin: warm and dry Objective Data Vital Signs Vital Signs: Vital Signs Temp Pulse Pulse Pulse Resp BP Pulse Ox 06/17/21 10:00 64 22 H 93/66 L 92 06/17/21 09:54 92 06/17/21 08:00 37.0 C 66 66 21 H 107/62 91 06/17/21 06:00 64 22 H 108/59 L 91 06/17/21 04:00 36.9 C 67 69 70 26 H 108/59 L 95 06/17/21 02:00 67 24 H 102/55 L 90 06/17/21 00:00 37.0 C 67 69 22 H 96/63 L 90 06/16/21 22:00 68 23 H 97/54 L 95 06/16/21 20:00 37.3 C 70 69 28 H 100/55 L 95 06/16/21 18:00 72 24 H 110/60 94 06/16/21 17:54 72 06/16/21 16:00 37.3 C 72 70 27 H 111/49 L 94 Intake/Output Intake/Output: Intake & Output 06/14/21 06/15/21 06/16/21 06/17/21 23:59 23:59 23:59 23:59 Intake Total 8450 1750 Output Total 200 375 Balance 8250 1375 Meds/Results Medications: Active Medications Generic Name Dose Route Start Last Admin Trade Name Freq PRN Reason Stop Dose Admin Dextrose 12.5 gm 06/16/21 13:12 Dextrose 50% 25 Gm/50 Ml Syringe IV PUSH PRN PRN Hypoglycemia Protocol Glucagon 1 mg 06/16/21 13:12 Glucagon For Inj 1 Mg Vial IM PRN PRN Hypoglycemia Protocol Glucose 15 gm 06/16/21 13:12 Glucose Oral Gel 15 Gm Of Glucse In 37.5 G
[2021-06-17 10:02] LABS: Glucose Point of Care 109 mg/dl (65-105)
--- NOTE | 2021-06-17 10:34 | WPDGICN ---
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 on board started on antibiotics, cultures pending CT scan reviewed (2) Colitis: Code(s): K52.9 - Noninfective gastroenteritis and colitis, unspecified Status: Acute Assessment and Plan: mild colitis per CT scan and normal lactic acid, only mild leukocytosis on antibiotics (3) Hypoglycemia: Code(s): E16.2 - Hypoglycemia, unspecified Status: Acute Assessment and Plan: last few days with poor oral intake and also h/o DM (4) Acute renal failure: Qualifiers: Acute renal failure type: unspecified Qualified Code(s): N17.9 - Acute kidney failure, unspecified Code(s): N17.9 - Acute kidney failure, unspecified Status: Acute Assessment and Plan: medical management now (5) Metabolic acidosis: Code(s): E87.2 - Acidosis Status: Acute (6) Acute hyponatremia: Code(s): E87.1 - Hypo-osmolality and hyponatremia Status: Acute (7) DM2 (diabetes mellitus, type 2): Code(s): E11.9 - Type 2 diabetes mellitus without complications Status: Chronic (8) Hypoglycemia: Code(s): E16.2 - Hypoglycemia, unspecified Status: Acute GI Consult Note Consult date/time: 06/17/21 10:34 Reason for consult: diarrhea, dhaval, colitis HPI: Amaury Denton is a 65 year old male with history of HTN, DM on meds admitted to ICU with generalized weakness, diarrhea, dehydration and low blood sugar. He is confused and could not tell me much other that he is here because had accidents but unable to elaborate more in history which has been obtained from medical records. He was brought here after had multiple bouts of diarrhea for last 5-7 days up to 10-15 a day, there is no report of abdominal pain, also lack of appetite last few days (per notes last colonoscopy I found in 2016 with polyps removed). ER evaluation found to have hypoglycemia, hypotensive, dehydrated with severe acute kidney injury, hyponatremia and metabolic acidosis then admitted to ICU. WBC 11k, bun 120, creat 8, carbon dioxide 10, lactic acid normal, hb 12. CT scan reviewed and showed mild colitis. Blood cultures pending, on fluids, bicarb iv and antibiotics per ICU. No previous history of kidney disease per records. Review of Systems Constitutional: Constitutional: Reports lethargy Eyes: Eyes: Denies blurry vision ENT: Reports Normal hearing present Cardiovascular: Cardiovascular: Denies chest pain Respiratory: Respiratory: Denies cough Gastrointestinal: Gastrointestinal: Reports diarrhea Genitourinary: Genitourinary: Reports no additional male genitourinary complaints Musculoskeletal: Musculoskeletal: Reports no additional musculoskeletal complaints Neurologic: Reports confusion Psychiatric: Psychiatric: Reports no additional psychiatric complaints [facility] Past Medical History Medical History Abdominal aortic aneurysm (AAA) DM2 (diabetes mellitus, type 2) History of amputation of great toe HTN (hypertension), benign Hyperlipidemia Obesity Surgical History Surgical History History of surgical removal of ganglion cyst Status post removal of part of parathyroid Family History Family History Father Hypertension Family history of lung cancer Sibling Patient's sister is in good health Patient's brother is in good health Mother Breast cancer Social History Social History Social History: The patient stated that he used to smoked. The patient lives with his . The patient lives with his
[2021-06-17 13:04] LABS: Glucose Point of Care 106 mg/dl (65-105)
--- NOTE | 2021-06-17 13:31 | WPDINTPN ---
Progress Note: A&P Assessment and Plan (1) Sepsis: Code(s): A41.9 - Sepsis, unspecified organism Status: Acute Assessment and Plan: Secondary to colitis Patient has received IV fluid bolus and is on IV fluid maintenance Blood pressures improved with IV fluids and patient has not needed vasopressors Lactic acid was normal (2) Colitis: Code(s): K52.9 - Noninfective gastroenteritis and colitis, unspecified Status: Acute Assessment and Plan: Stool culture, WBC and C diff Rocephin and Flagyl IV Blood cultures also sent pending (3) Acute renal failure: Qualifiers: Acute renal failure type: unspecified Qualified Code(s): N17.9 - Acute kidney failure, unspecified Code(s): N17.9 - Acute kidney failure, unspecified Status: Acute Assessment and Plan: Likely prerenal which may have progressed to ATN, mild rhabdomyolysis CK level elevated in [address] did not show any hydronephrosis or stones Nephrology following Continue IV fluids with bicarb for acidosis but decrease rate as patient has received significant amount of IV fluids by now His creatinine is still high and BUN is and 140 but potassium and acidosis in acceptable range Patient Was given Lasix this morning and increased urine output in response. Discussed with Dr. Nichols. Will monitor for another 24 hours to see if patient's kidney function improves before resorting to dialysis. Discussed with patient was agreeable to dialysis if needed. Monitor urine output electrolytes and creatinine (4) Metabolic acidosis: Code(s): E87.2 - Acidosis Status: Acute Assessment and Plan: IV fluids with bicarb (5) Thrombocytopenia: Code(s): D69.6 - Thrombocytopenia, unspecified Status: Acute Assessment and Plan: Likely secondary to sepsis Baseline unknown Hold anticoagulation Monitor levels which are improving (6) Hypoglycemia: Code(s): E16.2 - Hypoglycemia, unspecified Status: Acute Assessment and Plan: He was On D5 with bicarb and D10 infusion but hypoglycemia has improved Off D10 now and D5 with bicarb has been decreased Monitor blood sugars and advance diet (7) Electrolyte abnormality: Code(s): E87.8 - Other disorders of electrolyte and fluid balance, not elsewhere classified Status: Acute Assessment and Plan: Replace low calcium (8) GI bleed: Code(s): K92.2 - Gastrointestinal hemorrhage, unspecified Status: Acute Assessment and Plan: Patient states that he noticed blood in his stool and CT suggested duodenitis or peptic ulcer disease Advance diet PPI IV q.12 hours GI following Monitor hemoglobin which has been stable (9) Suspected COVID-19 virus infection: Code(s): Z20.822 - Contact with and (suspected) exposure to COVID-19 Status: Acute Assessment and Plan: COVID-19 suspected by ED physician although I do not see any infiltrates on lung bases on his abdominal CT. Patient also is vaccinated with a booster dose against COVID SARS-CoV-2 PCR was negative Additional Plan DVT prophylaxis -SCDs Stress ulcer prophylaxis -IV PPI Nutrition -NPO Code Status - Full Code I spoke to patient and his at bedside. Discussed renal function status and possibility of him needing dialysis if further deteriorates or does not improve over next 24-48 hours. Subjective Date/time seen: 06/17/21 13:31 He states he feels better today as compared to yesterday. No bowel movements overnight no nausea vomiting fever. He is afebrile Urine output remains poor overnight. Other vital signs have been acceptable and he is saturating well on 4 L nasal cannula He denies any pain and all the systems were reviewed and were negative Review of Systems Review of Systems: All systems reviewed & are unremarkable except as noted in HPI and below (HPI) Exam Narrative: General: Pt is alert awake and in N
[2021-06-17 14:26] LABS: Glucose Point of Care 101 mg/dl (65-105)
[2021-06-17 17:16] LABS: Glucose Point of Care 129 mg/dl (65-105)
[2021-06-17 18:32] LABS: Albumin Level 2.8 g/dL (3.5-5.1); Anion Gap 17 mmol/L (8-16); Calcium 5.5 mg/dL (8.4-10.2); Carbon Dioxide 17 mmol/L (22-30); Chloride 93 mmol/L (98-107); Estimated CRCL calculation 10 ml/min; Estimated Glomerular Filt Rate 6; Glucose 116 mg/dL (65-110); Potassium 3.5 mmol/L (3.4-5.0); Sodium 127 mmol/L (137-145)
[2021-06-17 18:41] LABS: Blood Urea Nitrogen 147 mg/dL (9-20)
[2021-06-17 18:59] LABS: Glucose Point of Care 107 mg/dl (65-105)
[2021-06-17 20:54] LABS: Glucose Point of Care 156 mg/dl (65-105)
[2021-06-18] VITALS (16 sets, daily range): BP systolic 94–128; BP diastolic 62–70; PULSE 62–78; RESP 20–29; TEMP 36.5–36.8; O2SAT 92–94
[2021-06-18] MEDS: SODIUM BICARBONATE 8.4% 100 MEQ in DEXTROSE 5% 1,000 ML 1,000 ML 50 MEQ IV CONT (00:43)
[2021-06-18] MEDS: FUROSEMIDE INJ 100 MG/10 ML VIAL 80 MG IV PUSH ×2 (00:43→09:29)
[2021-06-18 01:20] LABS: Glucose Point of Care 153 mg/dl (65-105)
[2021-06-18] MEDS: metroNIDAZOLE 500 MG/ISO 100ML 500 MG/100 ML BAG 100 MG IVPB ×3 (04:41→20:34)
[2021-06-18 05:40] LABS: Hematocrit 37.4 % (42.0-52.0); Hemoglobin 13.4 g/dL (14.0-18.0); Mean Corpuscular HGB Conc 35.8 g/dl (32-36); Mean Corpuscular Hemoglobin 29.5 pg (26-34); Mean Corpuscular Volume 82.4 fl (80-100); Mean Platelet Volume 9.6 fl (7.4-10.4); Platelet Count Result 167 k/mm3 (150-375); Red Blood Count 4.54 M/mm3 (4.6-6.20); Red Cell Distribution Width 12.5 % (11.5-14.5); White Blood Count 10.8 K/mm3 (4.5-10.0)
[2021-06-18 05:52] LABS: Alanine Aminotransferase 31 U/L (4-50); Albumin Level 2.9 g/dL (3.5-5.1); Alkaline Phosphatase 52 U/L (38-126); Anion Gap 17 mmol/L (8-16); Aspartate Amino Transferase 49 U/L (17-59); Bilirubin,Total 0.2 mg/dL (0.2-1.3); Calcium 5.7 mg/dL (8.4-10.2); Carbon Dioxide 19 mmol/L (22-30); Chloride 92 mmol/L (98-107); Estimated CRCL calculation 10 ml/min; Estimated Glomerular Filt Rate 6; Glucose 144 mg/dL (65-110); Magnesium 1.8 mg/dL (1.6-2.3); Potassium 3.5 mmol/L (3.4-5.0); Sodium 128 mmol/L (137-145)
[2021-06-18 06:07] LABS: Blood Urea Nitrogen 140 mg/dL (9-20)
[2021-06-18] MEDS: POTASSIUM CHLORIDE 20 MEQ TABLET 40 MEQ PO (09:28)
[2021-06-18] MEDS: PANTOPRAZOLE SODIUM IV 40 MG VIAL IV PUSH ×2 (09:29→20:35)
[2021-06-18 09:43] LABS: Glucose Point of Care 140 mg/dl (65-105)
--- NOTE | 2021-06-18 09:52 | WPDGIPROGNO ---
Progress Note: A&P Assessment and Plan (1) Sepsis: Code(s): A41.9 - Sepsis, unspecified organism Status: Acute Assessment and Plan: on antibioitics, cultures pending (2) Acute renal failure: Qualifiers: Acute renal failure type: unspecified Qualified Code(s): N17.9 - Acute kidney failure, unspecified Code(s): N17.9 - Acute kidney failure, unspecified Status: Acute Assessment and Plan: management but nephrology, still with acidosis (3) Metabolic acidosis: Code(s): E87.2 - Acidosis Status: Acute (4) Colitis: Code(s): K52.9 - Noninfective gastroenteritis and colitis, unspecified Status: Acute Assessment and Plan: stool samples were ordered but not collected since he has not had any BM since admission (5) Diarrhea: Qualifiers: Diarrhea type: unspecified type Qualified Code(s): R19.7 - Diarrhea, unspecified Code(s): R19.7 - Diarrhea, unspecified Status: Acute (6) DM2 (diabetes mellitus, type 2): Code(s): E11.9 - Type 2 diabetes mellitus without complications Status: Chronic Assessment and Plan: glucose stable, he came with hypoglycemia. Subjective Date/time seen: 06/18/21 09:52 Interval history: still on bicarb drip. RN reports that he has not had BM since admission. Review of Systems Review of Systems: All systems reviewed & are unremarkable except as noted in HPI and below Exam Const: General: comfortable and no acute distress HENMT: General nose exam: Normal nares present Eyes: Sclera: sclerae normal Neck: Neck: supple Resp: Auscultation: clear to auscultation bilaterally Cardio: Rate: regular rate GI: GI Palp: Yes Soft to palpation and No Guarding due to palpation present (GI) Auscultation: normal bowel sounds Skin: General skin exam: no rashes or lesions noted Neuro: Speech: normal speech Motor exam (neuro): Normal motor muscle tone present throughout Other: awake, alert, oriented x2 Extrem: General: normal to inspection Psych: Mental Status: mental status grossly normal Objective Data Vital Signs Vital Signs: Vital Signs - 24 hr 06/17/21 09:54 06/17/21 10:00 06/17/21 12:00 Temperature 98.0 F Pulse Rate 66 64 Pulse Rate [Monitor] 63 Respiratory Rate 22 H 23 H Blood Pressure 93/66 L 102/70 Pulse Oximetry 92 92 90 06/17/21 14:00 06/17/21 16:00 06/17/21 18:00 Temperature 97.8 F Pulse Rate 66 65 63 Pulse Rate [Monitor] 65 Respiratory Rate 23 H 22 H 23 H Blood Pressure 106/64 124/61 116/72 Pulse Oximetry 91 90 93 06/17/21 20:00 06/17/21 22:00 06/18/21 00:00 Temperature 97.7 F 98.0 F Pulse Rate 63 64 66 Pulse Rate [Monitor] 65 65 Respiratory Rate 23 H 22 H Blood Pressure 106/64 110/65 Pulse Oximetry 92 94 06/18/21 02:00 06/18/21 04:00 06/18/21 04:01 Temperature 98.1 F Pulse Rate 64 64 68 Pulse Rate [Monitor] 65 Respiratory Rate 20 Blood Pressure 127/62 127/62 Pulse Oximetry 93 93 06/18/21 06:00 06/18/21 08:00 Temperature 97.8 F Pulse Rate 62 64 Pulse Rate [Monitor] Respiratory Rate 21 H Blood Pressure 128/65 Pulse Oximetry 94 Intake/Output Intake/Output: Intake & Output 06/15/21 06/16/21 06/17/21 06/18/21 23:59 23:59 23:59 23:59 Intake Total 8450 3190 100 Output Total 200 1575 2300 Balance 8250 1615 -2200 Meds/Results Medications: Active Medications Generic Name Dose Route Start Last Admin Trade Name Freq PRN Reason Stop Dose Admin Dextrose 12.5 gm 06/16/21 13:12 Dextrose 50% 25 Gm/50 Ml Syringe IV PUSH PRN PRN Hypoglycemia Protocol Glucagon 1 mg 06/16/21 13:12 Glucagon For Inj 1 Mg Vial IM PRN PRN Hypoglycemia Protocol Glucose 15 gm 06/16/21 13:12 Glucose Oral Gel 15 Gm Of Glucse In 37.5 Gm Tube PO PRN PRN Hypoglycemia Protocol Ceftriaxone Sodium/Dextrose 1 gm in 50 mls @ 100 mls/hr 06/17/21 09:00
--- NOTE | 2021-06-18 12:01 | PM.PNNEP ---
Progress Note: A&P Assessment and Plan (1) Acute renal failure: Qualifiers: Acute renal failure type: unspecified Qualified Code(s): N17.9 - Acute kidney failure, unspecified Code(s): N17.9 - Acute kidney failure, unspecified Status: Acute Assessment and Plan: suspect due to severe volume depletion/dehydration however, cannot discount a component of renal hypoperfusion/ATN as well his history of severe diarrhea likely explains his renal dysfunction and metabolic acidosis evaluation to date demonstrates: prerenal urine electrolytes normal renal ultrasound mildly elevated CPK (but not high enough to cause this degree of ERIC/ARF) probably okay to change bicarb fluid to normal saline follow repeat labs and urine output PRN IV diuretics (2) Sepsis: Code(s): A41.9 - Sepsis, unspecified organism Status: Acute Assessment and Plan: likely secondary to colitis BP better s/p aggressive IVF resuscitation blood and stool cultures and C.diff toxin assay pending no need for vasopressors at this time follow trend of hemodynamics on antibiotics (3) Metabolic acidosis: Code(s): E87.2 - Acidosis Status: Acute Assessment and Plan: CO2 quite low on admission but better receiving bicarb fluids at this time -- likely okay to d/c in favor of normal saline was on metformin but his lactic acid was normal due to ERIC/ARF (4) Acute hyponatremia: Code(s): E87.1 - Hypo-osmolality and hyponatremia Status: Acute Assessment and Plan: better related to his dehydration and renal failure should continue improve with IVF resuscitation follow trend (5) HTN (hypertension), benign: Code(s): I10 - Essential (primary) hypertension Status: Chronic Assessment and Plan: reasonable control at this time follow trend of hemodynamics (6) DM2 (diabetes mellitus, type 2): Code(s): E11.9 - Type 2 diabetes mellitus without complications Status: Chronic Assessment and Plan: follow Accu-Cheks on sliding-scale insulin Will continue to follow. Subjective Date/time seen: 06/18/21 12:01 Continues to make slow and steady progress; able to eat and drink at this time although his appetite is not back to baseline; increased urine output in the last 24 hours although kidney function seems about the same; remains hemodynamically stable; no bowel movement as of yet; no issues/events overnight or earlier this morning. Exam Narrative: General: WD/WN male in NAD Heart: normal S1 and S2; no rub Lungs: clear to auscultation Abdomen: soft, nontender, nondistended, positive bowel sounds Extremities: no cyanosis or clubbing; no edema Skin: warm and dry Objective Data Vital Signs Vital Signs: Vital Signs Temp Pulse Pulse Resp BP Pulse Ox 06/18/21 12:00 36.8 C 78 78 20 94/70 L 93 06/18/21 10:28 92 06/18/21 10:00 69 06/18/21 08:00 36.6 C 63 63 21 H 128/65 94 06/18/21 06:00 62 06/18/21 04:01 36.7 C 68 20 127/62 93 06/18/21 04:00 64 65 127/62 93 06/18/21 02:00 64 06/18/21 00:00 36.7 C 66 65 22 H 110/65 94 06/17/21 22:00 64 06/17/21 20:00 36.5 C 63 65 23 H 106/64 92 06/17/21 18:00 63 23 H 116/72 93 Intake/Output Intake/Output: Intake & Output 06/15/21 06/16/21 06/17/21 06/18/21 23:59 23:59 23:59 23:59 Intake Total 8450 3190 1000 Output Total 200 1575 2300 Balance 8250 1615 -1300 Meds/Results Medications: Active Medications Generic Name Dose Route Start Last Admin Trade Name Freq PRN Reason Stop Dose Admin Dextrose 12.5 gm 06/16/21 13:12 Dextrose 50% 25 Gm/50 Ml Syringe IV PUSH PRN PRN Hypoglycemia Protocol Glucagon 1 mg 06/16/21 13:12 Glucagon For Inj 1 Mg Vial IM PRN PRN Hypoglycemia Protocol Glucose 15 gm 06/16/21 13:12 Glucose Oral Gel 15
--- NOTE | 2021-06-18 12:01 | P.PNNP_ITS ---
Progress Note: A&P Assessment and Plan (1) Acute renal failure: Qualifiers: Acute renal failure type: unspecified Qualified Code(s): N17.9 - Acute kidney failure, unspecified Code(s): N17.9 - Acute kidney failure, unspecified Status: Acute Assessment and Plan: * suspect due to severe volume depletion/dehydration * however, cannot discount a component of renal hypoperfusion/ATN as well * his history of severe diarrhea likely explains his renal dysfunction and metabolic acidosis * evaluation to date demonstrates: * prerenal urine electrolytes * normal renal ultrasound * mildly elevated CPK (but not high enough to cause this degree of ERIC/ARF) * probably okay to change bicarb fluid to normal saline * follow repeat labs and urine output * PRN IV diuretics (2) Sepsis: Code(s): A41.9 - Sepsis, unspecified organism Status: Acute Assessment and Plan: * likely secondary to colitis * BP better s/p aggressive IVF resuscitation * blood and stool cultures and C.diff toxin assay pending * no need for vasopressors at this time * follow trend of hemodynamics * on antibiotics (3) Metabolic acidosis: Code(s): E87.2 - Acidosis Status: Acute Assessment and Plan: * CO2 quite low on admission but better * receiving bicarb fluids at this time -- likely okay to d/c in favor of normal saline * was on metformin but his lactic acid was normal * due to ERIC/ARF (4) Acute hyponatremia: Code(s): E87.1 - Hypo-osmolality and hyponatremia Status: Acute Assessment and Plan: * better * related to his dehydration and renal failure * should continue improve with IVF resuscitation * follow trend (5) HTN (hypertension), benign: Code(s): I10 - Essential (primary) hypertension Status: Chronic Assessment and Plan: * reasonable control at this time * follow trend of hemodynamics (6) DM2 (diabetes mellitus, type 2): Code(s): E11.9 - Type 2 diabetes mellitus without complications Status: Chronic Assessment and Plan: * follow Accu-Cheks * on sliding-scale insulin Will continue to follow. Subjective Date/time seen: 06/18/21 12:01 Continues to make slow and steady progress; able to eat and drink at this time although his appetite is not back to baseline; increased urine output in the la st 24 hours although kidney function seems about the same; remains hemodynamically stable; no bowel movement as of yet; no issues/events overnight or earlier this morning. Exam Narrative: General: WD/WN male in NAD Heart: normal S1 and S2; no rub Lungs: clear to auscultation Abdomen: soft, nontender, nondistended, positive bowel sounds Extremities: no cyanosis or clubbing; no edema Skin: warm and dry Objective Data Vital Signs Vital Signs: Vital Signs Temp Pulse Pulse Resp BP Pulse Ox 06/18/21 12:00 36.8 C 78 78 20 94/70 L 93 06/18/21 10:28 92 06/18/21 10:00 69 06/18/21 08:00 36.6 C 63 63 21 H 128/65 94 06/18/21 06:00 62 06/18/21 04:01 36.7 C 68 20 127/62 93 06/18/21 04:00 64 65 127/62 93 06/18/21 02:00 64 06/18/21 00:00 36.7 C 66 65 22 H 110/65 94 06/17/21 22:00 64 06/17/21 20:00 36.5 C 63 65 23 H 106/64 92 06/17/21 18:00 63 23 H
--- NOTE | 2021-06-18 12:04 | PM.IMPN ---
Progress Note: A&P Assessment and Plan (1) Sepsis: Code(s): A41.9 - Sepsis, unspecified organism Status: Acute Assessment and Plan: Secondary to colitis Patient has received IV fluid bolus and is on IV fluid maintenance Blood pressures improved with IV fluids and patient has not needed vasopressors Lactic acid was normal (2) Colitis: Code(s): K52.9 - Noninfective gastroenteritis and colitis, unspecified Status: Acute Assessment and Plan: Stool culture, WBC and C diff but patient is not having any diarrhea anymore Rocephin and Flagyl IV Blood cultures also sent pending (3) Acute renal failure: Qualifiers: Acute renal failure type: unspecified Qualified Code(s): N17.9 - Acute kidney failure, unspecified Code(s): N17.9 - Acute kidney failure, unspecified Status: Acute Assessment and Plan: Likely prerenal which may have progressed to ATN, mild rhabdomyolysis CK level elevated in [address] did not show any hydronephrosis or stones Nephrology following Continue IV fluids His creatinine and BUN is still high potassium and acidosis in acceptable range He is asymptomatic and has now improving urine output. Discussed with Dr. Nichols. will continue conservative management and will give another dose of Lasix today. Monitor urine output electrolytes and creatinine (4) Metabolic acidosis: Code(s): E87.2 - Acidosis Status: Acute Assessment and Plan: IV fluids with bicarb (5) Thrombocytopenia: Code(s): D69.6 - Thrombocytopenia, unspecified Status: Acute Assessment and Plan: Likely secondary to sepsis Baseline unknown Hold anticoagulation Monitor levels which are improving (6) Hypoglycemia: Code(s): E16.2 - Hypoglycemia, unspecified Status: Acute Assessment and Plan: He was On D5 with bicarb and D10 infusion but hypoglycemia has improved Off D10 now and D5 with bicarb has been decreased blood sugars are now elevated. Will discontinue D5 altogether Monitor blood sugars and advance diet (7) Electrolyte abnormality: Code(s): E87.8 - Other disorders of electrolyte and fluid balance, not elsewhere classified Status: Acute Assessment and Plan: Replace low Potassium and calcium (8) GI bleed: Code(s): K92.2 - Gastrointestinal hemorrhage, unspecified Status: Acute Assessment and Plan: Patient states that he noticed blood in his stool and CT suggested duodenitis or peptic ulcer disease no recurrence since he has been admitted to ICU. No Bowel movements overnight hemoglobin has been stable PPI IV q.12 hours GI following Monitor hemoglobin which has been stable (9) Suspected COVID-19 virus infection: Code(s): Z20.822 - Contact with and (suspected) exposure to COVID-19 Status: Acute Assessment and Plan: COVID-19 suspected by ED physician although I do not see any infiltrates on lung bases on his abdominal CT. Patient also is vaccinated with a booster dose against COVID SARS-CoV-2 PCR was negative Additional Plan DVT prophylaxis -SCDs Stress ulcer prophylaxis -IV PPI Nutrition -NPO Code Status - Full Code Subjective Date/time seen: 06/18/21 12:04 he states he feels better this morning as compared to yesterday. His only complaint is of being tired lying in bed. He did not had any bowel movement overnight. He is to eating better although not at his baseline. Denies any nausea vomiting. No chest pain shortness of breath abdominal pain cough. All the systems were reviewed and were negative Increased urine output over last 24 hours of more than 2 L He is on nasal cannula 2 L Review of Systems Review of Systems: All systems reviewed & are unremarkable except as noted in HPI and below (HPI) Exam Narrative: General: Pt is alert awake and in NAD Lungs/Chest: Trachea central Clear BS B/L, No crackles or wheezin
[2021-06-18 12:13] LABS: Glucose Point of Care 214 mg/dl (65-105)
[2021-06-18] MEDS: CALCIUM GLUC 2,000 MG/NS 100ML 2,000 MG/100 ML BAG 100 MG IVPB (14:07)
[2021-06-18] MEDS: SODIUM CHLORIDE 0.9% IV 1,000 ML 50 ML IV CONT (14:08)
[2021-06-18 17:58] LABS: Glucose Point of Care 138 mg/dl (65-105)
[2021-06-18 20:50] LABS: Glucose Point of Care 173 mg/dl (65-105)
[2021-06-19] VITALS (14 sets, daily range): BP systolic 113–119; BP diastolic 58–75; PULSE 59–69; RESP 18–24; TEMP 36.1–37.3; O2SAT 93–97
[2021-06-19 05:51] LABS: Hematocrit 41.3 % (42.0-52.0); Hemoglobin 14.8 g/dL (14.0-18.0); Mean Corpuscular HGB Conc 35.8 g/dl (32-36); Mean Corpuscular Hemoglobin 29.8 pg (26-34); Mean Corpuscular Volume 83.3 fl (80-100); Mean Platelet Volume 9.8 fl (7.4-10.4); Platelet Count Result 195 k/mm3 (150-375); Red Blood Count 4.96 M/mm3 (4.6-6.20); Red Cell Distribution Width 12.6 % (11.5-14.5); White Blood Count 9.1 K/mm3 (4.5-10.0)
[2021-06-19] MEDS: metroNIDAZOLE 500 MG/ISO 100ML 500 MG/100 ML BAG 100 MG IVPB ×3 (05:55→21:22)
[2021-06-19 06:07] LABS: Alanine Aminotransferase 34 U/L (4-50); Albumin Level 3.3 g/dL (3.5-5.1); Alkaline Phosphatase 71 U/L (38-126); Anion Gap 14 mmol/L (8-16); Aspartate Amino Transferase 45 U/L (17-59); Bilirubin,Total 0.3 mg/dL (0.2-1.3); Calcium 6.6 mg/dL (8.4-10.2); Carbon Dioxide 25 mmol/L (22-30); Chloride 93 mmol/L (98-107); Estimated CRCL calculation 11 ml/min; Estimated Glomerular Filt Rate 7; Glucose 146 mg/dL (65-110); Magnesium 2.1 mg/dL (1.6-2.3); Phosphorus 7.4 mg/dL (2.5-4.5); Potassium 3.4 mmol/L (3.4-5.0); Sodium 132 mmol/L (137-145)
[2021-06-19 06:09] LABS: Blood Urea Nitrogen 136 mg/dL (9-20)
--- NOTE | 2021-06-19 07:33 | P.CDI_ITS ---
CDI Query Clarification Request - Acute renal failure- Likely prerenal which may have progressed to ATN, mild rhabdomyolysis CK level elevated in 1400 range monitor levels has been documented Please further specify if rhabdomyolysis is: * Traumatic * Non traumatic * Unable to determine <Samanta Montalvo RN - Last Filed: 06/21/21 13:18> Clarified Diagnosis (1) Rhabdomyolysis: Code(s): M62.82 - Rhabdomyolysis <Samanta Montalvo RN - Last Filed: 06/21/21 13:18> Status: Acute <Samanta Montalvo RN - Last Filed: 06/21/21 13:18> Assessment and Plan: Unable to determine, resolved. <Aydee Solomon MD - Last Filed: 06/21/21 19:56>
--- NOTE | 2021-06-19 09:05 | PM.IMPN ---
Progress Note: A&P Assessment and Plan (1) Sepsis: Code(s): A41.9 - Sepsis, unspecified organism Status: Acute Assessment and Plan: Secondary to colitis Patient has received IV fluid bolus and is on IV fluid maintenance Blood pressures improved with IV fluids and patient has not needed vasopressors Lactic acid was normal (2) Colitis: Code(s): K52.9 - Noninfective gastroenteritis and colitis, unspecified Status: Acute Assessment and Plan: Stool culture, WBC and C diff but patient is not having any diarrhea anymore Rocephin and Flagyl IV . Will continue for 5 days Blood cultures have been negative (3) Acute renal failure: Qualifiers: Acute renal failure type: unspecified Qualified Code(s): N17.9 - Acute kidney failure, unspecified Code(s): N17.9 - Acute kidney failure, unspecified Status: Acute Assessment and Plan: Likely prerenal which may have progressed to ATN, mild rhabdomyolysis improving and patient now appears to be in diuretic phase of ATN with high urine output CT did not show any hydronephrosis or stones Nephrology following Continue small amount of IV fluids . hold Lasix for now He is asymptomatic and has now improving urine output. Discussed with Dr. Burger. continue conservative management and hold further diuresis Monitor urine output electrolytes and creatinine (4) Metabolic acidosis: Code(s): E87.2 - Acidosis Status: Acute Assessment and Plan: improved (5) Thrombocytopenia: Code(s): D69.6 - Thrombocytopenia, unspecified Status: Acute Assessment and Plan: Likely secondary to sepsis. resolved now Baseline unknown Monitor levels which are improving (6) Hypoglycemia: Code(s): E16.2 - Hypoglycemia, unspecified Status: Acute Assessment and Plan: He was On D5 with bicarb and D10 infusion but hypoglycemia has improved blood sugars are now elevated. he is off of all dextrose altogether Monitor blood sugars and advance diet as tolerated (7) Electrolyte abnormality: Code(s): E87.8 - Other disorders of electrolyte and fluid balance, not elsewhere classified Status: Acute Assessment and Plan: Replace low Potassium and calcium (8) GI bleed: Code(s): K92.2 - Gastrointestinal hemorrhage, unspecified Status: Acute Assessment and Plan: Patient states that he noticed blood in his stool and CT suggested duodenitis or peptic ulcer disease no recurrence since he has been admitted to ICU. No Bowel movements overnight hemoglobin has been stable PPI IV q.12 hours GI following Monitor hemoglobin which has been stable (9) Suspected COVID-19 virus infection: Code(s): Z20.822 - Contact with and (suspected) exposure to COVID-19 Status: Acute Assessment and Plan: COVID-19 suspected by ED physician although I do not see any infiltrates on lung bases on his abdominal CT. Patient also is vaccinated with a booster dose against COVID SARS-CoV-2 PCR was negative Additional Plan DVT prophylaxis - start Lovenox Stress ulcer prophylaxis -IV PPI Nutrition - diet ordered Code Status - Full Code Subjective Date/time seen: 06/19/21 09:05 overnight events reviewed. High urine output. He states he feels same this morning as compared to yesterday. has no new complaints. His only complaint is of being tired lying in bed. He did not had any bowel movement overnight. He is eating better although not at his baseline. Denies any nausea vomiting. No chest pain shortness of breath abdominal pain cough. All the systems were reviewed and were negative He is on nasal cannula 2 L Review of Systems Review of Systems: All systems reviewed & are unremarkable except as noted in HPI and below (HPI) Exam Narrative: General: Pt is alert awake and in NAD Lungs/Chest: Trachea central Clear BS B/L, No crackles or wheezing. Cardiac: RRR.
--- NOTE | 2021-06-19 09:25 | P.PNNP_ITS ---
Progress Note: A&P Assessment and Plan (1) Acute renal failure: Qualifiers: Acute renal failure type: unspecified Qualified Code(s): N17.9 - Acute kidney failure, unspecified Code(s): N17.9 - Acute kidney failure, unspecified Status: Acute Assessment and Plan: * suspect due to severe volume depletion/dehydration * however, cannot discount a component of renal hypoperfusion/ATN as well * since he was sick for so long, his dehydration may have turned into ATN. * evaluation to date demonstrates: * prerenal urine electrolytes * normal renal ultrasound * mildly elevated CPK (but not high enough to cause this degree of ERIC/ARF) * Getting saline at 50 cc an hour. Will continue this for now. * follow repeat labs and urine output * PRN IV diuretics (2) Sepsis: Code(s): A41.9 - Sepsis, unspecified organism Status: Acute Assessment and Plan: * likely secondary to colitis * BP better s/p aggressive IVF resuscitation * blood and stool cultures and C.diff toxin assay pending * no need for vasopressors at this time * follow trend of hemodynamics * on Flagyl (3) Metabolic acidosis: Code(s): E87.2 - Acidosis Status: Acute Assessment and Plan: * resolved (4) Acute hyponatremia: Code(s): E87.1 - Hypo-osmolality and hyponatremia Status: Acute Assessment and Plan: * Sodium gradually coming up. * related to his dehydration and renal failure (5) HTN (hypertension), benign: Code(s): I10 - Essential (primary) hypertension Status: Chronic Assessment and Plan: * reasonable control at this time * follow trend of hemodynamics (6) DM2 (diabetes mellitus, type 2): Code(s): E11.9 - Type 2 diabetes mellitus without complications Status: Chronic Assessment and Plan: * follow Accu-Cheks * on sliding-scale insulin Will continue to follow. Subjective Date/time seen: 06/19/21 09:25 Interval history: Amaury is feeling better today. Diarrhea is better. No chest pain or shortness of breath. Exam Narrative: General: WD/WN male in NAD Heart: normal S1 and S2; no rub or gallop Lungs: clear to auscultation Abdomen: soft, nontender, nondistended, positive bowel sounds Extremities: no cyanosis or clubbing; no edema Skin: No rash Objective Data Vital Signs Vital Signs: Vital Signs - 24 hr 06/18/21 10:00 06/18/21 10:28 06/18/21 12:00 Temperature 36.8 C Pulse Rate 69 78 Pulse Rate [Monitor] 78 Respiratory Rate 20 Blood Pressure 94/70 L Pulse Oximetry 92 93 06/18/21 14:00 06/18/21 16:00 06/18/21 18:00 Temperature 36.7 C Pulse Rate 74 67 72 Pulse Rate [Monitor] 67 Respiratory Rate 23 H Blood Pressure 117/67 Pulse Oximetry 94 06/18/21 20:00 06/18/21 20:35 06/18/21 21:15 Temperature 36.5 C Pulse Rate 71 75 68 Pulse Rate [Monitor] Respiratory Rate 29 H 25 H Blood Pressure 111/70 Pulse Oximetry 94 93 94 06/18/21 22:00 06/19/21 00:00 06/19/21 00:01 Temperature 36.5 C Pulse Rate 68 63 59 L Pulse Rate [Monitor] Respiratory Rate 20 Blood Pressure 114/68
--- NOTE | 2021-06-19 09:25 | PM.PNNEP ---
Progress Note: A&P Assessment and Plan (1) Acute renal failure: Qualifiers: Acute renal failure type: unspecified Qualified Code(s): N17.9 - Acute kidney failure, unspecified Code(s): N17.9 - Acute kidney failure, unspecified Status: Acute Assessment and Plan: suspect due to severe volume depletion/dehydration however, cannot discount a component of renal hypoperfusion/ATN as well since he was sick for so long, his dehydration may have turned into ATN. evaluation to date demonstrates: prerenal urine electrolytes normal renal ultrasound mildly elevated CPK (but not high enough to cause this degree of ERIC/ARF) Getting saline at 50 cc an hour. Will continue this for now. follow repeat labs and urine output PRN IV diuretics (2) Sepsis: Code(s): A41.9 - Sepsis, unspecified organism Status: Acute Assessment and Plan: likely secondary to colitis BP better s/p aggressive IVF resuscitation blood and stool cultures and C.diff toxin assay pending no need for vasopressors at this time follow trend of hemodynamics on Flagyl (3) Metabolic acidosis: Code(s): E87.2 - Acidosis Status: Acute Assessment and Plan: resolved (4) Acute hyponatremia: Code(s): E87.1 - Hypo-osmolality and hyponatremia Status: Acute Assessment and Plan: Sodium gradually coming up. related to his dehydration and renal failure (5) HTN (hypertension), benign: Code(s): I10 - Essential (primary) hypertension Status: Chronic Assessment and Plan: reasonable control at this time follow trend of hemodynamics (6) DM2 (diabetes mellitus, type 2): Code(s): E11.9 - Type 2 diabetes mellitus without complications Status: Chronic Assessment and Plan: follow Accu-Cheks on sliding-scale insulin Will continue to follow. Subjective Date/time seen: 06/19/21 09:25 Interval history: Amaury is feeling better today. Diarrhea is better. No chest pain or shortness of breath. Exam Narrative: General: WD/WN male in NAD Heart: normal S1 and S2; no rub or gallop Lungs: clear to auscultation Abdomen: soft, nontender, nondistended, positive bowel sounds Extremities: no cyanosis or clubbing; no edema Skin: No rash Objective Data Vital Signs Vital Signs: Vital Signs - 24 hr 06/18/21 10:00 06/18/21 10:28 06/18/21 12:00 Temperature 36.8 C Pulse Rate 69 78 Pulse Rate [Monitor] 78 Respiratory Rate 20 Blood Pressure 94/70 L Pulse Oximetry 92 93 06/18/21 14:00 06/18/21 16:00 06/18/21 18:00 Temperature 36.7 C Pulse Rate 74 67 72 Pulse Rate [Monitor] 67 Respiratory Rate 23 H Blood Pressure 117/67 Pulse Oximetry 94 06/18/21 20:00 06/18/21 20:35 06/18/21 21:15 Temperature 36.5 C Pulse Rate 71 75 68 Pulse Rate [Monitor] Respiratory Rate 29 H 25 H Blood Pressure 111/70 Pulse Oximetry 94 93 94 06/18/21 22:00 06/19/21 00:00 06/19/21 00:01 Temperature 36.5 C Pulse Rate 68 63 59 L Pulse Rate [Monitor] Respiratory Rate 20 Blood Pressure 114/68 Pulse Oximetry 93 93 06/19/21 02:00 06/19/21 04:00 06/19/21 06:00 Temperature 36.4 C L Pulse Rate 61 60 62 Pulse Rate [Monitor] Respiratory Rate 19 Blood Pressure 117/75 Pulse Oximetry 93 06/19/21 08:00 Temperature 36.3 C L Pulse Rate 60 Pulse Rate [Monitor] Respiratory Rate 18 Blood Pressure 115/64 Pulse Oximetry 95 Intake/Output Intake/Output: Intake & Output 06/16/21 06/17/21 06/18/21 06/19/21 23:59 23:59 23:59 23:59 Intake Total 8450 3190 1640 100 Output Total 200 1575 5900 3850 Balance 8250 1615 -4260 -3750 Meds/Results Medications: Active Medications Generic Name Dose Route Start Last Admin Trade Name Freq PRN Reason Stop Dose Admin Calcium Acetate 667 mg 06/19/21 09:00 Calcium Acetate 667 Mg Tablet PO TID DOROTHY Dextrose 12.5 gm
[2021-06-19 09:28] LABS: Glucose Point of Care 137 mg/dl (65-105)
--- NOTE | 2021-06-19 09:31 | PCOTNOTE ---
Attempted to see patient this date for OT this AM. Patient just received breakfast tray. Introduced self to patient and will attempt again this date. Patient willing to participate.
[2021-06-19] MEDS: POTASSIUM CHLORIDE 20 MEQ TABLET 40 MEQ PO (09:32)
[2021-06-19] MEDS: CALCIUM ACETATE 667 MG TABLET PO ×3 (09:32→17:30)
[2021-06-19] MEDS: PANTOPRAZOLE SODIUM IV 40 MG VIAL IV PUSH ×2 (09:33→21:23)
[2021-06-19 11:50] LABS: Glucose Point of Care 175 mg/dl (65-105)
[2021-06-19] MEDS: SODIUM CHLORIDE 0.9% IV 1,000 ML 50 ML IV CONT (14:39)
--- NOTE | 2021-06-19 15:57 | WPDGIPROGNO ---
Progress Note: A&P Assessment and Plan (1) Sepsis: Code(s): A41.9 - Sepsis, unspecified organism Status: Acute Assessment and Plan: on antibiotics, cultures pending (2) Acute renal failure: Qualifiers: Acute renal failure type: unspecified Qualified Code(s): N17.9 - Acute kidney failure, unspecified Code(s): N17.9 - Acute kidney failure, unspecified Status: Acute Assessment and Plan: management but nephrology, acidosis, creatinine still elevated (3) Metabolic acidosis: Code(s): E87.2 - Acidosis Status: Acute Assessment and Plan: already treated (4) Colitis: Code(s): K52.9 - Noninfective gastroenteritis and colitis, unspecified Status: Acute Assessment and Plan: stool samples were ordered but not collected since he has not had more diarrhea he is eating more and denies abdominal pain (5) Diarrhea: Qualifiers: Diarrhea type: unspecified type Qualified Code(s): R19.7 - Diarrhea, unspecified Code(s): R19.7 - Diarrhea, unspecified Status: Acute (6) DM2 (diabetes mellitus, type 2): Code(s): E11.9 - Type 2 diabetes mellitus without complications Status: Chronic Assessment and Plan: glucose stable, he came with hypoglycemia. Subjective Date/time seen: 06/19/21 15:57 Interval history: no new events, eating more, denies abdominal pain, no more diarrhea Review of Systems Review of Systems: All systems reviewed & are unremarkable except as noted in HPI and below Exam Const: General: comfortable and no acute distress HENMT: General nose exam: Normal nares present Eyes: Sclera: sclerae normal Neck: Neck: supple Resp: Auscultation: clear to auscultation bilaterally Cardio: Rate: regular rate GI: GI Palp: Yes Soft to palpation and No Guarding due to palpation present (GI) Auscultation: normal bowel sounds Skin: General skin exam: no rashes or lesions noted Neuro: Speech: normal speech Motor exam (neuro): Normal motor muscle tone present throughout Other: awake, alert, oriented x2 Extrem: General: normal to inspection Psych: Mental Status: mental status grossly normal Objective Data Vital Signs Vital Signs: Vital Signs - 24 hr 06/18/21 16:00 06/18/21 18:00 06/18/21 20:00 Temperature 98.0 F Pulse Rate 67 72 71 Pulse Rate [Monitor] 67 Respiratory Rate 23 H Blood Pressure 117/67 Pulse Oximetry 94 94 06/18/21 20:35 06/18/21 21:15 06/18/21 22:00 Temperature 97.7 F Pulse Rate 75 68 68 Pulse Rate [Monitor] Respiratory Rate 29 H 25 H Blood Pressure 111/70 Pulse Oximetry 93 94 06/19/21 00:00 06/19/21 00:01 06/19/21 02:00 Temperature 97.7 F Pulse Rate 63 59 L 61 Pulse Rate [Monitor] Respiratory Rate 20 Blood Pressure 114/68 Pulse Oximetry 93 93 06/19/21 04:00 06/19/21 06:00 06/19/21 08:00 Temperature 97.5 F L 97.4 F L Pulse Rate 60 62 60 Pulse Rate [Monitor] Respiratory Rate 19 18 Blood Pressure 117/75 115/64 Pulse Oximetry 93 95 06/19/21 10:00 06/19/21 12:00 06/19/21 14:00 Temperature Pulse Rate 68 63 62 Pulse Rate [Monitor] Respiratory Rate Blood Pressure Pulse Oximetry Intake/Output Intake/Output: Intake & Output 06/16/21 06/17/21 06/18/21 06/19/21 23:59 23:59 23:59 23:59 Intake Total 8450 3190 1640 1390 Output Total 200 1575 5900 5350 Balance 8250 1615 -4260 -3960 Meds/Results Medications: Active Medications Generic Name Dose Route Start Last Admin Trade Name Freq PRN Reason Stop Dose Admin Acetaminophen 650 mg 06/19/21 09:28 Acetaminophen 325 Mg Tablet PO Q4H PRN Mild Pain (1-3) or Fever Calcium Acetate 667 mg 06/19/21 09:00 06/19/21 11:44 Calcium Acetate 667 Mg Tablet PO 667 mg TID DOROTHY Administration Dextrose 12.5 gm 06/16/21 13:12 Dextrose 50% 25 Gm/50 Ml Syringe IV PUSH PRN PRN Hypoglycemia Protocol [facility]
[2021-06-19 17:36] LABS: Glucose Point of Care 193 mg/dl (65-105)
[2021-06-19 21:32] LABS: Glucose Point of Care 215 mg/dl (65-105)
--- NOTE | 2021-06-19 22:05 | PC.NURSE ---
06/19 2020 recieved patient from ICU per bed. Oriented to surroundings and call light in reach.
[2021-06-20] VITALS (10 sets, daily range): BP systolic 92–136; BP diastolic 60–76; PULSE 62–78; RESP 18–22; TEMP 36.4–36.9; O2SAT 93–98
[2021-06-20] MEDS: metroNIDAZOLE 500 MG/ISO 100ML 500 MG/100 ML BAG 100 MG IVPB ×3 (04:06→20:11)
[2021-06-20 06:48] LABS: Hematocrit 38.2 % (42.0-52.0); Hemoglobin 13.5 g/dL (14.0-18.0); Mean Corpuscular HGB Conc 35.3 g/dl (32-36); Mean Corpuscular Hemoglobin 29.8 pg (26-34); Mean Corpuscular Volume 84.3 fl (80-100); Mean Platelet Volume 9.5 fl (7.4-10.4); Platelet Count Result 236 k/mm3 (150-375); Red Blood Count 4.53 M/mm3 (4.6-6.20); Red Cell Distribution Width 13.1 % (11.5-14.5); White Blood Count 8.4 K/mm3 (4.5-10.0)
[2021-06-20 07:10] LABS: Alanine Aminotransferase 46 U/L (4-50); Albumin Level 3.2 g/dL (3.5-5.1); Alkaline Phosphatase 65 U/L (38-126); Aspartate Amino Transferase 62 U/L (17-59); Bilirubin,Total 0.3 mg/dL (0.2-1.3); Calcium 6.5 mg/dL (8.4-10.2); Carbon Dioxide 23 mmol/L (22-30); Chloride 98 mmol/L (98-107); Estimated CRCL calculation 15 ml/min; Estimated Glomerular Filt Rate 10; Glucose 162 mg/dL (65-110); Magnesium 1.8 mg/dL (1.6-2.3); Phosphorus 5.2 mg/dL (2.5-4.5); Potassium 3.6 mmol/L (3.4-5.0)
[2021-06-20 07:17] LABS: Blood Urea Nitrogen 119 mg/dL (9-20)
[2021-06-20 07:51] LABS: Glucose Point of Care 160 mg/dl (65-105)
[2021-06-20 08:19] LABS: Anion Gap 13 mmol/L (8-16); Sodium 134 mmol/L (137-145)
[2021-06-20] MEDS: CALCIUM ACETATE 667 MG TABLET PO ×3 (09:07→16:40)
[2021-06-20] MEDS: PANTOPRAZOLE SODIUM IV 40 MG VIAL IV PUSH ×2 (09:07→20:12)
[2021-06-20] MEDS: HEPARIN SODIUM 5,000 UNITS/ML VIAL 5000 UNITS SUB-Q ×3 (09:19→20:12)
--- NOTE | 2021-06-20 09:21 | P.PNNP_ITS ---
Progress Note: A&P Assessment and Plan (1) Acute renal failure: Qualifiers: Acute renal failure type: unspecified Qualified Code(s): N17.9 - Acute kidney failure, unspecified Code(s): N17.9 - Acute kidney failure, unspecified Status: Acute Assessment and Plan: * Acute kidney injury. * evaluation to date demonstrates: * prerenal urine electrolytes * normal renal ultrasound * mildly elevated CPK (but not high enough to cause this degree of ERIC/ARF) * Getting saline at 50 cc an hour. Will continue this for now. * Creatinine has started to improve. It is down to 5.8 now. * Continue fluids. (2) Sepsis: Code(s): A41.9 - Sepsis, unspecified organism Status: Acute Assessment and Plan: * likely secondary to colitis * BP better s/p aggressive IVF resuscitation * blood negative so far. * Diarrhea improved. * on Flagyl and ceftriaxone. (3) Metabolic acidosis: Code(s): E87.2 - Acidosis Status: Acute Assessment and Plan: * resolved (4) Acute hyponatremia: Code(s): E87.1 - Hypo-osmolality and hyponatremia Status: Acute Assessment and Plan: * Sodium gradually coming up. * related to his dehydration and renal failure (5) HTN (hypertension), benign: Code(s): I10 - Essential (primary) hypertension Status: Chronic Assessment and Plan: * Systolic blood pressure well controlled * On no blood pressure meds right now. * follow trend of hemodynamics (6) DM2 (diabetes mellitus, type 2): Code(s): E11.9 - Type 2 diabetes mellitus without complications Status: Chronic Assessment and Plan: * follow Accu-Cheks * on sliding-scale insulin Will continue to follow. Subjective Date/time seen: 06/20/21 09:21 Interval history: Amaury is feeling better today. Out of the ICU. Breathing fine. Sitting up in a chair. Diarrhea is gone Exam Narrative: General: WD/WN male in NAD Heart: normal S1 and S2; no rub or gallop Lungs: clear Abdomen: soft, nontender, nondistended, positive bowel sounds Extremities: no cyanosis or clubbing; no edema Skin: No rash or subQ nodules Objective Data Vital Signs Vital Signs: Vital Signs - 24 hr 06/19/21 10:00 06/19/21 12:00 06/19/21 14:00 Temperature Pulse Rate 68 63 62 Respiratory Rate Blood Pressure Pulse Oximetry 06/19/21 16:00 06/19/21 18:00 06/19/21 20:00 Temperature 36.7 C Pulse Rate 64 63 Respiratory Rate 24 H Blood Pressure 113/65 Pulse Oximetry 97 97 06/19/21 22:11 06/19/21 23:55 06/20/21 00:00 Temperature 37.3 C 36.1 C L Pulse Rate 69 69 75 Respiratory Rate 22 H 20 Blood Pressure 119/64 118/58 L Pulse Oximetry 96 95 06/20/21 04:00 06/20/21 05:02 Temperature 36.9 C Pulse Rate 70 70 Respiratory Rate 18 Blood Pressure 115/60 Pulse Oximetry 93 Intake/Output Intake/Output: Intake & Output 06/17/21 06/18/21 06/19/21 06/20/21 23:59 23:59 23:59 23:59 Intake Total 3190 1640 2790 1700 Output Total 5359 7091 8895 2200 Balance 1615 -4260 -33
--- NOTE | 2021-06-20 09:21 | PM.PNNEP ---
Progress Note: A&P Assessment and Plan (1) Acute renal failure: Qualifiers: Acute renal failure type: unspecified Qualified Code(s): N17.9 - Acute kidney failure, unspecified Code(s): N17.9 - Acute kidney failure, unspecified Status: Acute Assessment and Plan: Acute kidney injury. evaluation to date demonstrates: prerenal urine electrolytes normal renal ultrasound mildly elevated CPK (but not high enough to cause this degree of ERIC/ARF) Getting saline at 50 cc an hour. Will continue this for now. Creatinine has started to improve. It is down to 5.8 now. Continue fluids. (2) Sepsis: Code(s): A41.9 - Sepsis, unspecified organism Status: Acute Assessment and Plan: likely secondary to colitis BP better s/p aggressive IVF resuscitation blood negative so far. Diarrhea improved. on Flagyl and ceftriaxone. (3) Metabolic acidosis: Code(s): E87.2 - Acidosis Status: Acute Assessment and Plan: resolved (4) Acute hyponatremia: Code(s): E87.1 - Hypo-osmolality and hyponatremia Status: Acute Assessment and Plan: Sodium gradually coming up. related to his dehydration and renal failure (5) HTN (hypertension), benign: Code(s): I10 - Essential (primary) hypertension Status: Chronic Assessment and Plan: Systolic blood pressure well controlled On no blood pressure meds right now. follow trend of hemodynamics (6) DM2 (diabetes mellitus, type 2): Code(s): E11.9 - Type 2 diabetes mellitus without complications Status: Chronic Assessment and Plan: follow Accu-Cheks on sliding-scale insulin Will continue to follow. Subjective Date/time seen: 06/20/21 09:21 Interval history: Amaury is feeling better today. Out of the ICU. Breathing fine. Sitting up in a chair. Diarrhea is gone Exam Narrative: General: WD/WN male in NAD Heart: normal S1 and S2; no rub or gallop Lungs: clear Abdomen: soft, nontender, nondistended, positive bowel sounds Extremities: no cyanosis or clubbing; no edema Skin: No rash or subQ nodules Objective Data Vital Signs Vital Signs: Vital Signs - 24 hr 06/19/21 10:00 06/19/21 12:00 06/19/21 14:00 Temperature Pulse Rate 68 63 62 Respiratory Rate Blood Pressure Pulse Oximetry 06/19/21 16:00 06/19/21 18:00 06/19/21 20:00 Temperature 36.7 C Pulse Rate 64 63 Respiratory Rate 24 H Blood Pressure 113/65 Pulse Oximetry 97 97 06/19/21 22:11 06/19/21 23:55 06/20/21 00:00 Temperature 37.3 C 36.1 C L Pulse Rate 69 69 75 Respiratory Rate 22 H 20 Blood Pressure 119/64 118/58 L Pulse Oximetry 96 95 06/20/21 04:00 06/20/21 05:02 Temperature 36.9 C Pulse Rate 70 70 Respiratory Rate 18 Blood Pressure 115/60 Pulse Oximetry 93 Intake/Output Intake/Output: Intake & Output 06/17/21 06/18/21 06/19/21 06/20/21 23:59 23:59 23:59 23:59 Intake Total 3190 1640 2790 1700 Output Total 1575 5900 6150 2200 Balance 1615 -4260 -3360 -500 Meds/Results Medications: Active Medications Generic Name Dose Route Start Last Admin Trade Name Kajal PRN Reason Stop Dose Admin Acetaminophen 650 mg 06/19/21 09:28 Acetaminophen 325 Mg Tablet PO Q4H PRN Mild Pain (1-3) or Fever Calcium Acetate 667 mg 06/19/21 09:00 06/20/21 09:07 Calcium Acetate 667 Mg Tablet PO 667 mg TID DOROTHY Administration Dextrose 12.5 gm 06/16/21 13:12 Dextrose 50% 25 Gm/50 Ml Syringe IV PUSH PRN PRN Hypoglycemia Protocol Glucagon 1 mg 06/16/21 13:12 Glucagon For Inj 1 Mg Vial IM PRN PRN Hypoglycemia Protocol Glucose 15 gm 06/16/21 13:12 Glucose Oral Gel 15 Gm Of Glucse In 37.5 Gm Tube PO PRN PRN Hypoglycemia Protocol Heparin Sodium (Porcine) 5,000 units 06/20/21 08:00 06/20/21 09:19 Heparin Sodium 5,000 Units/Ml Vial
--- NOTE | 2021-06-20 10:57 | PM.IMPN ---
Progress Note: A&P Assessment and Plan (1) Sepsis: Code(s): A41.9 - Sepsis, unspecified organism Status: Acute Assessment and Plan: Secondary to colitis Patient has received IV fluid bolus and is on IV fluid maintenance Blood pressures improved with IV fluids and patient has has been weaned vasopressors and was transferred to the regular medical floor Lactic acid was normal (2) Colitis: Code(s): K52.9 - Noninfective gastroenteritis and colitis, unspecified Status: Acute Assessment and Plan: Stool culture, WBC and C diff but patient is not having any diarrhea anymore Rocephin and Flagyl IV . Will continue for another4 days Blood cultures have been negative (3) Acute renal failure: Qualifiers: Acute renal failure type: unspecified Qualified Code(s): N17.9 - Acute kidney failure, unspecified Code(s): N17.9 - Acute kidney failure, unspecified Status: Acute Assessment and Plan: acute nonoliguric kidney injury, likely secondary to hypotension and dehydration. Likely prerenal which may have progressed to ATN. improving and patient now appears to be in diuretic phase of ATN with high urine output CT did not show any morphologic abnormalities; no hydronephrosis or stones Nephrology following Continue gentle IV fluid hydration. Currently LASIX on hold. He is asymptomatic and has now improving urine output. Discussed with Dr. Burger. continue conservative management Monitor urine output electrolytes and creatinine (4) Metabolic acidosis: Code(s): E87.2 - Acidosis Status: Acute Assessment and Plan: Resolved. (5) Thrombocytopenia: Code(s): D69.6 - Thrombocytopenia, unspecified Status: Acute Assessment and Plan: Likely secondary to sepsis. resolved now Baseline unknown Monitor levels which are improving (6) Hypoglycemia: Code(s): E16.2 - Hypoglycemia, unspecified Status: Acute Assessment and Plan: He was On D5 with bicarb and D10 infusion but hypoglycemia has improved blood sugars are now elevated. he is off of all dextrose altogether Monitor blood sugars and advance diet as tolerated Encourage p.o. intake. (7) Electrolyte abnormality: Code(s): E87.8 - Other disorders of electrolyte and fluid balance, not elsewhere classified Status: Acute Assessment and Plan: Hypokalemia resolved;. Monitor serum calcium. (8) GI bleed: Code(s): K92.2 - Gastrointestinal hemorrhage, unspecified Status: Acute Assessment and Plan: Patient states that he noticed blood in his stool and CT suggested duodenitis or peptic ulcer disease no recurrence since he has been admitted to ICU. No Bowel movements overnight hemoglobin has been stable PPI IV q.12 hours. GI following Monitor hemoglobin which has been stable Additional Plan DVT prophylaxis - start Lovenox Stress ulcer prophylaxis -IV PPI Nutrition - diet ordered Code Status - Full Code Subjective Date/time seen: 06/20/21 10:57 S: patient was examined at the bedside in the company of his bladder. He is out of bed to chair. He was in very good spirits. His diarrhea has resolved He denies any complaint. breathing has improved He tolerated PT today. Appetite is still poor. Sleep was adequate. Exam Narrative: General: Pt is alert awake and in NAD Lungs/Chest: Trachea central Clear BS B/L, No crackles or wheezing. Cardiac: RRR. Normal S1 S2. No murmurs Circulation: Pedal pulses are intact and symmetrical. Abdomen: Normal bowel sounds.. Soft. Nontender. ND. Extremities: No clubbing, cyanosis or edema. Warm : Miller in place Neurologic: Follows commands. Moves all 4 extremities PERRL AO x 3 Skin: No Rash Const: General: cooperative, healthy appearing, comfortable, no acute distress, well developed and ill appearing Nutritional Appearance: overweight Orientation/consciousness: oriented to person
[2021-06-20 11:38] LABS: Glucose Point of Care 200 mg/dl (65-105)
[2021-06-20] MEDS: SODIUM CHLORIDE 0.9% IV 1,000 ML 50 ML IV CONT (11:54)
--- NOTE | 2021-06-20 14:00 | WPDGIPROGNO ---
Progress Note: A&P Assessment and Plan (1) Sepsis: Code(s): A41.9 - Sepsis, unspecified organism Status: Acute Assessment and Plan: resolved, cultures negative doing well will follow from [place], call if questions (2) Acute renal failure: Qualifiers: Acute renal failure type: unspecified Qualified Code(s): N17.9 - Acute kidney failure, unspecified Code(s): N17.9 - Acute kidney failure, unspecified Status: Acute Assessment and Plan: management but nephrology creatinine slowly trending down (3) Metabolic acidosis: Code(s): E87.2 - Acidosis Status: Acute Assessment and Plan: resolved after medical treatment (4) Colitis: Code(s): K52.9 - Noninfective gastroenteritis and colitis, unspecified Status: Acute Assessment and Plan: stool samples were ordered but not collected since he has not had more diarrhea he is eating more and denies abdominal pain (5) Diarrhea: Qualifiers: Diarrhea type: unspecified type Qualified Code(s): R19.7 - Diarrhea, unspecified Code(s): R19.7 - Diarrhea, unspecified Status: Acute Assessment and Plan: no more episodes (6) DM2 (diabetes mellitus, type 2): Code(s): E11.9 - Type 2 diabetes mellitus without complications Status: Chronic Assessment and Plan: glucose stable, he came with hypoglycemia. Subjective Date/time seen: 06/20/21 14:00 Interval history: doing better, eating more and he was moved to regular floor from ICU, no abdominal pain and no report of diarrhea. His brother is at bedside Review of Systems Review of Systems: All systems reviewed & are unremarkable except as noted in HPI and below Exam Const: General: comfortable and no acute distress HENMT: General nose exam: Normal nares present Eyes: Sclera: sclerae normal Neck: Neck: supple Resp: Auscultation: clear to auscultation bilaterally Cardio: Rate: regular rate GI: GI Palp: Yes Soft to palpation and No Guarding due to palpation present (GI) Auscultation: normal bowel sounds Skin: General skin exam: no rashes or lesions noted Neuro: Speech: normal speech Motor exam (neuro): Normal motor muscle tone present throughout Other: awake, alert, oriented x2 Extrem: General: normal to inspection Psych: Mental Status: mental status grossly normal Objective Data Vital Signs Vital Signs: Vital Signs - 24 hr 06/19/21 16:00 06/19/21 18:00 06/19/21 20:00 Temperature 98.0 F Pulse Rate 64 63 Respiratory Rate 24 H Blood Pressure 113/65 Pulse Oximetry 97 97 06/19/21 22:11 06/19/21 23:55 06/20/21 00:00 Temperature 99.2 F 97.0 F L Pulse Rate 69 69 75 Respiratory Rate 22 H 20 Blood Pressure 119/64 118/58 L Pulse Oximetry 96 95 06/20/21 04:00 06/20/21 05:02 Temperature 98.4 F Pulse Rate 70 70 Respiratory Rate 18 Blood Pressure 115/60 Pulse Oximetry 93 Intake/Output Intake/Output: Intake & Output 06/17/21 06/18/21 06/19/21 06/20/21 23:59 23:59 23:59 23:59 Intake Total 3190 1640 2790 2850 Output Total 1573 5900 6101 2200 Balance 6950 -3567 -2188 650 Meds/Results Medications: Active Medications Generic Name Dose Route Start Last Admin Trade Name Freq PRN Reason Stop Dose Admin Acetaminophen 650 mg 06/19/21 09:28 Acetaminophen 325 Mg Tablet PO Q4H PRN Mild Pain (1-3) or Fever Calcium Acetate 667 mg 06/19/21 09:00 06/20/21 12:34 Calcium Acetate 667 Mg Tablet PO 667 mg TID DOROTHY Administration Dextrose 12.5 gm 06/16/21 13:12 Dextrose 50% 25 Gm/50 Ml Syringe IV PUSH PRN PRN Hypoglycemia Protocol Glucagon 1 mg 06/16/21 13:12 Glucagon For Inj 1 Mg Vial IM PRN PRN Hypoglycemia Protocol Glucose 15 gm 06/16/21 13:12 Glucose Oral Gel 15 Gm Of Glucse In 37.5 Gm Tube PO PRN PRN Hypoglycemia Protocol Heparin Sodium (Porcine) 5,000 units 06/20/21
[2021-06-20 16:40] LABS: Glucose Point of Care 151 mg/dl (65-105)
[2021-06-20 21:20] LABS: Glucose Point of Care 163 mg/dl (65-105)
[2021-06-21] VITALS (10 sets, daily range): BP systolic 105–123; BP diastolic 57–79; PULSE 59–80; RESP 20; TEMP 36.3–36.9; O2SAT 95–99
[2021-06-21] MEDS: metroNIDAZOLE 500 MG/ISO 100ML 500 MG/100 ML BAG 100 MG IVPB (04:07)
[2021-06-21] MEDS: HEPARIN SODIUM 5,000 UNITS/ML VIAL 5000 UNITS SUB-Q ×3 (06:19→21:06)
[2021-06-21 06:20] LABS: Hematocrit 37.7 % (42.0-52.0); Hemoglobin 13.1 g/dL (14.0-18.0); Mean Corpuscular HGB Conc 34.7 g/dl (32-36); Mean Corpuscular Hemoglobin 29.8 pg (26-34); Mean Corpuscular Volume 85.7 fl (80-100); Mean Platelet Volume 9.3 fl (7.4-10.4); Platelet Count Result 235 k/mm3 (150-375); White Blood Count 10.7 K/mm3 (4.5-10.0)
[2021-06-21 06:49] LABS: Alanine Aminotransferase 56 U/L (4-50); Albumin Level 3.2 g/dL (3.5-5.1); Alkaline Phosphatase 73 U/L (38-126); Anion Gap 10 mmol/L (8-16); Aspartate Amino Transferase 62 U/L (17-59); Bilirubin,Total 0.3 mg/dL (0.2-1.3); Blood Urea Nitrogen 92 mg/dL (9-20); Calcium 6.4 mg/dL (8.4-10.2); Carbon Dioxide 23 mmol/L (22-30); Chloride 102 mmol/L (98-107); Estimated CRCL calculation 21 ml/min; Estimated Glomerular Filt Rate 14; Glucose 149 mg/dL (65-110); Magnesium 1.8 mg/dL (1.6-2.3); Potassium 3.5 mmol/L (3.4-5.0); Sodium 135 mmol/L (137-145)
[2021-06-21 07:04] LABS: Prealbumin 16.1 mg/dL (17.6-36.0)
[2021-06-21 07:47] LABS: Glucose Point of Care 131 mg/dl (65-105)
[2021-06-21] MEDS: CALCIUM ACETATE 667 MG TABLET PO ×3 (08:26→17:09)
[2021-06-21] MEDS: PANTOPRAZOLE SODIUM IV 40 MG VIAL IV PUSH ×2 (08:27→21:02)
--- NOTE | 2021-06-21 10:37 | PM.IMPN ---
Progress Note: A&P Assessment and Plan (1) Sepsis: Code(s): A41.9 - Sepsis, unspecified organism Status: Acute Assessment and Plan: Secondary to colitis Patient has received IV fluid bolus and was on IV fluid maintenance. Blood pressures improved with IV fluids and patient has has been weaned vasopressors and was transferred to the regular medical floor. Continue gentle hydration with normal saline at 50 cc/hour to help with kidney function recovery. Monitor for evidence of fluid overload. Currently saturating 97% on 3 L of oxygen. (2) Colitis: Code(s): K52.9 - Noninfective gastroenteritis and colitis, unspecified Status: Acute Assessment and Plan: Stool culture, WBC and C diff were ordered; diarrhea had resolved. Stop Rocephin and Flagyl IV . (3) Acute renal failure: Qualifiers: Acute renal failure type: unspecified Qualified Code(s): N17.9 - Acute kidney failure, unspecified Code(s): N17.9 - Acute kidney failure, unspecified Status: Acute Assessment and Plan: Resolving acute nonoliguric kidney injury, likely secondary to hypotension and dehydration. Likely prerenal which may have progressed to ATN. Renal function is improving and patient now appears to be in diuretic phase of ATN with high urine output CT did not show any morphologic abnormalities; no hydronephrosis or stones Nephrology following Continue gentle IV fluid hydration. Currently LASIX on hold. He is asymptomatic and has now improving urine output. Discussed with Dr. Burger. Continue conservative management Monitor urine output electrolytes and creatinine (4) Metabolic acidosis: Code(s): E87.2 - Acidosis Status: Acute Assessment and Plan: Resolved. (5) Thrombocytopenia: Code(s): D69.6 - Thrombocytopenia, unspecified Status: Acute Assessment and Plan: Likely secondary to sepsis. resolved now Baseline unknown Monitor levels which are improving (6) Hypoglycemia: Code(s): E16.2 - Hypoglycemia, unspecified Status: Acute Assessment and Plan: He was On D5 with bicarb and D10 infusion but hypoglycemia has improved blood sugars are now elevated. he is off of all dextrose altogether Monitor blood sugars and advance diet as tolerated Encourage p.o. intake. (7) Electrolyte abnormality: Code(s): E87.8 - Other disorders of electrolyte and fluid balance, not elsewhere classified Status: Acute Assessment and Plan: Hypokalemia resolved;. Monitor serum calcium. (8) GI bleed: Code(s): K92.2 - Gastrointestinal hemorrhage, unspecified Status: Acute Assessment and Plan: Patient states that he noticed blood in his stool and CT suggested duodenitis or peptic ulcer disease no recurrence since he has been admitted to ICU. No Bowel movements overnight hemoglobin has been stable PPI IV q.12 hours. GI following Monitor hemoglobin which has been stable Additional Plan DVT prophylaxis - start Lovenox Stress ulcer prophylaxis -IV PPI Nutrition - diet ordered Code Status - Full Code Subjective Date/time seen: 06/21/21 10:37 S: patient was examined. He was out of bed to chair. He was in very good spirits. He denies any complaint. His breathing has improved. Sleep was adequate. Review of Systems Review of Systems: All systems reviewed & are unremarkable except as noted in HPI and below (HPI) Constitutional: Constitutional: Reports as per HPI and Reports no additional constitutional complaints Eyes: Eyes: Reports as per HPI and Reports no additional eye complaints ENT: Reports system reviewed and no additional complaints, except as documented and Reports Normal hearing present Cardiovascular: Cardiovascular: Reports no additional cardiovascular complaints Respiratory: Respiratory: Reports no additional respiratory complaints and Reports no additional respiratory complaints Gastroint
[2021-06-21 11:19] LABS: Glucose Point of Care 160 mg/dl (65-105)
[2021-06-21] MEDS: SODIUM CHLORIDE 0.9% IV 1,000 ML 50 ML IV CONT (11:22)
--- NOTE | 2021-06-21 13:11 | PCOTNOTE ---
On 06/21/21, the student, Laura Cabral, provided care and completed [facility] documentation on this patient. I have reviewed the student's documentation and agree with the findings.
--- NOTE | 2021-06-21 14:26 | P.PNNP_ITS ---
Progress Note: A&P Assessment and Plan (1) Acute renal failure: Qualifiers: Acute renal failure type: unspecified Qualified Code(s): N17.9 - Acute kidney failure, unspecified Code(s): N17.9 - Acute kidney failure, unspecified Status: Acute Assessment and Plan: * Acute kidney injury. * evaluation to date demonstrates: * prerenal urine electrolytes * normal renal ultrasound * mildly elevated CPK (but not high enough to cause this degree of ERIC/ARF) * Getting saline at 50 cc an hour. Will continue this for now. * creatinine continues to improve. (2) Sepsis: Code(s): A41.9 - Sepsis, unspecified organism Status: Acute Assessment and Plan: * likely secondary to colitis * BP better s/p aggressive IVF resuscitation * blood negative so far. * Diarrhea improved. * Off antibiotics (3) Metabolic acidosis: Code(s): E87.2 - Acidosis Status: Acute Assessment and Plan: * resolved (4) Acute hyponatremia: Code(s): E87.1 - Hypo-osmolality and hyponatremia Status: Acute Assessment and Plan: * Sodium gradually coming up. * now 135. * related to his dehydration and renal failure (5) HTN (hypertension), benign: Code(s): I10 - Essential (primary) hypertension Status: Chronic Assessment and Plan: * Systolic blood pressure well controlled * On no blood pressure meds right now (6) DM2 (diabetes mellitus, type 2): Code(s): E11.9 - Type 2 diabetes mellitus without complications Status: Chronic Assessment and Plan: * follow Accu-Cheks * on sliding-scale insulin Subjective Date/time seen: 06/21/21 14:26 Interval history: is in the room. Amaury is feeling better today. No more diarrhea. Eating pretty well. No shortness of breath Exam Narrative: General: WD/WN male in NAD Heart: normal S1 and S2; no rub or gallop Lungs: clear bilaterally Abdomen: soft, nontender, nondistended, positive bowel sounds Extremities: no edema Skin: No rash Objective Data Vital Signs Vital Signs: Vital Signs - 24 hr 06/20/21 16:00 06/20/21 20:00 06/20/21 20:06 Temperature 36.6 C Pulse Rate 67 62 74 Respiratory Rate 22 H Blood Pressure 136/76 Pulse Oximetry 96 96 06/21/21 00:00 06/21/21 04:00 06/21/21 04:31 Temperature 36.8 C Pulse Rate 59 L 69 60 Respiratory Rate 20 Blood Pressure 105/65 Pulse Oximetry 97 06/21/21 08:00 06/21/21 08:45 06/21/21 12:00 Temperature 36.7 C Pulse Rate 75 70 80 Respiratory Rate 20 Blood Pressure 123/57 L Pulse Oximetry 97 99 Intake/Output Intake/Output: Intake & Output 06/18/21 06/19/21 06/20/21 06/21/21 23:59 23:59 23:59 23:59 Intake Total 1640 2790 3310 2190 Output Total 5900 6150 4000 2900 [facility] -[phone] Meds/Results Medications: Active Medications Generic Name Dose Route Start Last Admin Trade Name Freq PRN Reason Stop Dose Admin Acetaminophen 650 mg 06/19/21 09:28 Acetaminophen 325 Mg Tablet PO Q4H PRN
--- NOTE | 2021-06-21 14:26 | PM.PNNEP ---
Progress Note: A&P Assessment and Plan (1) Acute renal failure: Qualifiers: Acute renal failure type: unspecified Qualified Code(s): N17.9 - Acute kidney failure, unspecified Code(s): N17.9 - Acute kidney failure, unspecified Status: Acute Assessment and Plan: Acute kidney injury. evaluation to date demonstrates: prerenal urine electrolytes normal renal ultrasound mildly elevated CPK (but not high enough to cause this degree of ERIC/ARF) Getting saline at 50 cc an hour. Will continue this for now. creatinine continues to improve. (2) Sepsis: Code(s): A41.9 - Sepsis, unspecified organism Status: Acute Assessment and Plan: likely secondary to colitis BP better s/p aggressive IVF resuscitation blood negative so far. Diarrhea improved. Off antibiotics (3) Metabolic acidosis: Code(s): E87.2 - Acidosis Status: Acute Assessment and Plan: resolved (4) Acute hyponatremia: Code(s): E87.1 - Hypo-osmolality and hyponatremia Status: Acute Assessment and Plan: Sodium gradually coming up. now 135. related to his dehydration and renal failure (5) HTN (hypertension), benign: Code(s): I10 - Essential (primary) hypertension Status: Chronic Assessment and Plan: Systolic blood pressure well controlled On no blood pressure meds right now (6) DM2 (diabetes mellitus, type 2): Code(s): E11.9 - Type 2 diabetes mellitus without complications Status: Chronic Assessment and Plan: follow Accu-Cheks on sliding-scale insulin Subjective Date/time seen: 06/21/21 14:26 Interval history: is in the room. Amaury is feeling better today. No more diarrhea. Eating pretty well. No shortness of breath Exam Narrative: General: WD/WN male in NAD Heart: normal S1 and S2; no rub or gallop Lungs: clear bilaterally Abdomen: soft, nontender, nondistended, positive bowel sounds Extremities: no edema Skin: No rash Objective Data Vital Signs Vital Signs: Vital Signs - 24 hr 06/20/21 16:00 06/20/21 20:00 06/20/21 20:06 Temperature 36.6 C Pulse Rate 67 62 74 Respiratory Rate 22 H Blood Pressure 136/76 Pulse Oximetry 96 96 06/21/21 00:00 06/21/21 04:00 06/21/21 04:31 Temperature 36.8 C Pulse Rate 59 L 69 60 Respiratory Rate 20 Blood Pressure 105/65 Pulse Oximetry 97 06/21/21 08:00 06/21/21 08:45 06/21/21 12:00 Temperature 36.7 C Pulse Rate 75 70 80 Respiratory Rate 20 Blood Pressure 123/57 L Pulse Oximetry 97 99 Intake/Output Intake/Output: Intake & Output 06/18/21 06/19/21 06/20/21 06/21/21 23:59 23:59 23:59 23:59 Intake Total 1640 2790 3310 2190 Output Total 5900 6150 4000 2900 [facility] -[phone] Meds/Results Medications: Active Medications Generic Name Dose Route Start Last Admin Trade Name Freq PRN Reason Stop Dose Admin Acetaminophen 650 mg 06/19/21 09:28 Acetaminophen 325 Mg Tablet PO Q4H PRN Mild Pain (1-3) or Fever Calcium Acetate 667 mg 06/19/21 09:00 06/21/21 13:53 Calcium Acetate 667 Mg Tablet PO 667 mg TID DOROTHY Administration Dextrose 12.5 gm 06/16/21 13:12 Dextrose 50% 25 Gm/50 Ml Syringe IV PUSH PRN PRN Hypoglycemia Protocol Glucagon 1 mg 06/16/21 13:12 Glucagon For Inj 1 Mg Vial IM PRN PRN Hypoglycemia Protocol Glucose 15 gm 06/16/21 13:12 Glucose Oral Gel 15 Gm Of Glucse In 37.5 Gm Tube PO PRN PRN Hypoglycemia Protocol Heparin Sodium (Porcine) 5,000 units 06/20/21 08:00 06/21/21 13:53 Heparin Sodium 5,000 Units/Ml Vial SUB-Q 5,000 units Q8HR DOROTHY Administration Dextrose 1,000 mls @ 100 mls/hr 06/16/21 13:12 Dextrose 5% 1,000 Ml IVPB PRN PRN Hypoglycemia Protocol Sodium Chloride 1,000 mls @ 50 mls/hr 06/18/21 12:15 06/21/21 11:22
[2021-06-21 16:36] LABS: Glucose Point of Care 133 mg/dl (65-105)
[2021-06-21 21:15] LABS: Glucose Point of Care 138 mg/dl (65-105)
[2021-06-22] VITALS (10 sets, daily range): BP systolic 126–141; BP diastolic 70–73; PULSE 64–81; RESP 16–20; TEMP 36.4–37.2; O2SAT 94
[2021-06-22] MEDS: HEPARIN SODIUM 5,000 UNITS/ML VIAL 5000 UNITS SUB-Q ×3 (05:54→21:09)
[2021-06-22 06:25] LABS: Albumin Level 3.2 g/dL (3.5-5.1); Anion Gap 10 mmol/L (8-16); Blood Urea Nitrogen 75 mg/dL (9-20); Calcium 6.7 mg/dL (8.4-10.2); Carbon Dioxide 25 mmol/L (22-30); Chloride 104 mmol/L (98-107); Estimated CRCL calculation 27 ml/min; Estimated Glomerular Filt Rate 19; Glucose 150 mg/dL (65-110); Phosphorus 3.6 mg/dL (2.5-4.5); Potassium 3.6 mmol/L (3.4-5.0); Sodium 139 mmol/L (137-145)
--- NOTE | 2021-06-22 06:50 | P.PNNP_ITS ---
Progress Note: A&P Assessment and Plan (1) Acute renal failure: Qualifiers: Acute renal failure type: unspecified Qualified Code(s): N17.9 - Acute kidney failure, unspecified Code(s): N17.9 - Acute kidney failure, unspecified Status: Acute Assessment and Plan: * Acute kidney injury. * evaluation to date demonstrates: * prerenal urine electrolytes * normal renal ultrasound * mildly elevated CPK (but not high enough to cause this degree of ERIC/ARF) * Getting saline at 50 cc an hour. * Creatinine down to 3.3. * He is eating well and his diarrhea is gone. Will stop the IV fluids. (2) Sepsis: Code(s): A41.9 - Sepsis, unspecified organism Status: Acute Assessment and Plan: * likely secondary to colitis * BP better s/p aggressive IVF resuscitation * blood negative so far. * Diarrhea improved. * Off antibiotics (3) Metabolic acidosis: Code(s): E87.2 - Acidosis Status: Acute Assessment and Plan: * resolved (4) Acute hyponatremia: Code(s): E87.1 - Hypo-osmolality and hyponatremia Status: Acute Assessment and Plan: Resolved (5) HTN (hypertension), benign: Code(s): I10 - Essential (primary) hypertension Status: Chronic Assessment and Plan: * Systolic blood pressure well controlled * On no blood pressure meds right now (6) DM2 (diabetes mellitus, type 2): Code(s): E11.9 - Type 2 diabetes mellitus without complications Status: Chronic Assessment and Plan: * follow Accu-Cheks * on sliding-scale insulin Subjective Date/time seen: 06/22/21 06:50 Interval history: Patient is feeling okay. Slept well. Eating well. Bowels are moving okay. No more diarrhea. Exam Narrative: General: WD/WN male in NAD Heart: normal S1 and S2; no rub Lungs: clear bilaterally Abdomen: soft, nontender, nondistended, positive bowel sounds Extremities: no edema or cyanosis Skin: No rash or subQ nodules Objective Data Vital Signs Vital Signs: Vital Signs - 24 hr 06/21/21 08:00 06/21/21 08:45 06/21/21 12:00 Temperature 36.7 C Pulse Rate 75 70 80 Respiratory Rate 20 Blood Pressure 123/57 L Pulse Oximetry 97 99 06/21/21 14:29 06/21/21 16:00 06/21/21 19:20 Temperature 36.3 C L Pulse Rate 66 70 64 Respiratory Rate 20 Blood Pressure 112/62 Pulse Oximetry 98 06/21/21 21:53 06/22/21 00:00 06/22/21 04:00 Temperature 36.9 C Pulse Rate 72 67 65 Respiratory Rate 20 Blood Pressure 122/79 Pulse Oximetry 95 06/22/21 05:07 Temperature 36.8 C Pulse Rate 69 Respiratory Rate 16 Blood Pressure 126/73 Pulse Oximetry 94 Intake/Output Intake/Output: Intake & Output 06/19/21 06/20/21 06/21/21 06/22/21 23:59 23:59 23:59 23:59 Intake Total 2790 3310 2310 300 Output Total 6150 4000 3700 4053 Balance -3836 -252 -1390 -5791 Meds/Results Medications: Active Medications Generic Name Dose Route Start Last Admin Trade Name Freq PRN Reason Stop Dose Ad
--- NOTE | 2021-06-22 06:50 | PM.PNNEP ---
Progress Note: A&P Assessment and Plan (1) Acute renal failure: Qualifiers: Acute renal failure type: unspecified Qualified Code(s): N17.9 - Acute kidney failure, unspecified Code(s): N17.9 - Acute kidney failure, unspecified Status: Acute Assessment and Plan: Acute kidney injury. evaluation to date demonstrates: prerenal urine electrolytes normal renal ultrasound mildly elevated CPK (but not high enough to cause this degree of ERIC/ARF) Getting saline at 50 cc an hour. Creatinine down to 3.3. He is eating well and his diarrhea is gone. Will stop the IV fluids. (2) Sepsis: Code(s): A41.9 - Sepsis, unspecified organism Status: Acute Assessment and Plan: likely secondary to colitis BP better s/p aggressive IVF resuscitation blood negative so far. Diarrhea improved. Off antibiotics (3) Metabolic acidosis: Code(s): E87.2 - Acidosis Status: Acute Assessment and Plan: resolved (4) Acute hyponatremia: Code(s): E87.1 - Hypo-osmolality and hyponatremia Status: Acute Assessment and Plan: Resolved (5) HTN (hypertension), benign: Code(s): I10 - Essential (primary) hypertension Status: Chronic Assessment and Plan: Systolic blood pressure well controlled On no blood pressure meds right now (6) DM2 (diabetes mellitus, type 2): Code(s): E11.9 - Type 2 diabetes mellitus without complications Status: Chronic Assessment and Plan: follow Accu-Cheks on sliding-scale insulin Subjective Date/time seen: 06/22/21 06:50 Interval history: Patient is feeling okay. Slept well. Eating well. Bowels are moving okay. No more diarrhea. Exam Narrative: General: WD/WN male in NAD Heart: normal S1 and S2; no rub Lungs: clear bilaterally Abdomen: soft, nontender, nondistended, positive bowel sounds Extremities: no edema or cyanosis Skin: No rash or subQ nodules Objective Data Vital Signs Vital Signs: Vital Signs - 24 hr 06/21/21 08:00 06/21/21 08:45 06/21/21 12:00 Temperature 36.7 C Pulse Rate 75 70 80 Respiratory Rate 20 Blood Pressure 123/57 L Pulse Oximetry 97 99 06/21/21 14:29 06/21/21 16:00 06/21/21 19:20 Temperature 36.3 C L Pulse Rate 66 70 64 Respiratory Rate 20 Blood Pressure 112/62 Pulse Oximetry 98 06/21/21 21:53 06/22/21 00:00 06/22/21 04:00 Temperature 36.9 C Pulse Rate 72 67 65 Respiratory Rate 20 Blood Pressure 122/79 Pulse Oximetry 95 06/22/21 05:07 Temperature 36.8 C Pulse Rate 69 Respiratory Rate 16 Blood Pressure 126/73 Pulse Oximetry 94 Intake/Output Intake/Output: Intake & Output 06/19/21 06/20/21 06/21/21 06/22/21 23:59 23:59 23:59 23:59 Intake Total 2790 3310 2310 300 Output Total 6150 4000 3700 1497 Balance -7227 -073 -7619 -5965 Meds/Results Medications: Active Medications Generic Name Dose Route Start Last Admin Trade Name Freq PRN Reason Stop Dose Admin Acetaminophen 650 mg 06/19/21 09:28 Acetaminophen 325 Mg Tablet PO Q4H PRN Mild Pain (1-3) or Fever Calcium Acetate 667 mg 06/19/21 09:00 06/21/21 17:09 Calcium Acetate 667 Mg Tablet PO 667 mg TID DOROTHY Administration Dextrose 12.5 gm 06/16/21 13:12 Dextrose 50% 25 Gm/50 Ml Syringe IV PUSH PRN PRN Hypoglycemia Protocol Glucagon 1 mg 06/16/21 13:12 Glucagon For Inj 1 Mg Vial IM PRN PRN Hypoglycemia Protocol Glucose 15 gm 06/16/21 13:12 Glucose Oral Gel 15 Gm Of Glucse In 37.5 Gm Tube PO PRN PRN Hypoglycemia Protocol Heparin Sodium (Porcine) 5,000 units 06/20/21 08:00 06/22/21 05:54 Heparin Sodium 5,000 Units/Ml Vial SUB-Q 5,000 units Q8HR DOROTHY Administration Dextrose 1,000 mls @ 100 mls/hr 06/16/21 13:12 Dextrose 5% 1,000 Ml IVPB PRN PRN Hypoglycemia Protocol Sodium Chlori
[2021-06-22 07:38] LABS: Glucose Point of Care 149 mg/dl (65-105)
[2021-06-22] MEDS: CALCIUM ACETATE 667 MG TABLET PO ×3 (08:49→16:40)
[2021-06-22] MEDS: PANTOPRAZOLE SODIUM IV 40 MG VIAL IV PUSH ×2 (08:49→21:08)
[2021-06-22 11:36] LABS: Glucose Point of Care 188 mg/dl (65-105)
--- NOTE | 2021-06-22 11:58 | PM.IMPN ---
Progress Note: A&P Assessment and Plan (1) Sepsis: Code(s): A41.9 - Sepsis, unspecified organism Status: Acute Assessment and Plan: Secondary to colitis Patient has received IV fluid bolus and was on IV fluid maintenance. Blood pressures improved with IV fluids and patient has has been weaned vasopressors and was transferred to the regular medical floor. Continue gentle hydration with normal saline at 50 cc/hour to help with kidney function recovery. Monitor for evidence of fluid overload. Currently saturating 97% on 3 L of oxygen. (2) Colitis: Code(s): K52.9 - Noninfective gastroenteritis and colitis, unspecified Status: Acute Assessment and Plan: Stool culture, WBC and C diff were ordered; diarrhea had resolved. Stop Rocephin and Flagyl IV . (3) Acute renal failure: Qualifiers: Acute renal failure type: unspecified Qualified Code(s): N17.9 - Acute kidney failure, unspecified Code(s): N17.9 - Acute kidney failure, unspecified Status: Acute Assessment and Plan: Resolving acute nonoliguric kidney injury, likely secondary to hypotension and dehydration. Likely prerenal which may have progressed to ATN. Renal function is improving and patient now appears to be in diuretic phase of ATN with high urine output CT did not show any morphologic abnormalities; no hydronephrosis or stones Nephrology following Stop the IV fluid hydration. Currently LASIX on hold. Kidney function is expected to continue to improve slowly. He is asymptomatic and has now improving urine output. Discussed with Dr. Burger. Continue conservative management Monitor urine output electrolytes and creatinine (4) Metabolic acidosis: Code(s): E87.2 - Acidosis Status: Acute Assessment and Plan: resolved (5) Acute hyponatremia: Code(s): E87.1 - Hypo-osmolality and hyponatremia Status: Acute Assessment and Plan: Resolved (6) HTN (hypertension), benign: Code(s): I10 - Essential (primary) hypertension Status: Chronic Assessment and Plan: Systolic blood pressure well controlled On no blood pressure meds right now Lasix on hold. (7) DM2 (diabetes mellitus, type 2): Code(s): E11.9 - Type 2 diabetes mellitus without complications Status: Chronic Assessment and Plan: Fasting blood glucose 150; Accu-Chek in the 149-188 range. on sliding-scale insulin (8) Rhabdomyolysis: Code(s): M62.82 - Rhabdomyolysis Status: Acute Assessment and Plan: Etiology:Unable to determine, mild, resolved. Not significant enough to cause a KI. (9) Suspected COVID-19 virus infection: Code(s): Z20.822 - Contact with and (suspected) exposure to COVID-19 Status: Acute Additional Plan DVT prophylaxis -on heparin 5000 units subQ Q 8h. Stress ulcer prophylaxis - PPI Nutrition - diet ordered Code Status - Full Code Subjective Date/time seen: 06/22/21 08:00 S: patient was examined. He is doing well with physical therapy. He had a bowel movement yesterday; no more diarrhea. Review of Systems Review of Systems: All systems reviewed & are unremarkable except as noted in HPI and below (HPI) Constitutional: Constitutional: Reports as per HPI and Reports no additional constitutional complaints Eyes: Eyes: Reports as per HPI and Reports no additional eye complaints ENT: Reports system reviewed and no additional complaints, except as documented and Reports Normal hearing present Cardiovascular: Cardiovascular: Reports no additional cardiovascular complaints Respiratory: Respiratory: Reports no additional respiratory complaints and Reports no additional respiratory complaints Gastrointestinal: Gastrointestinal: Reports as per HPI and Reports no additional gastrointestinal complaints Musculoskeletal: Musculoskeletal: Reports no additional musculoskeletal complaints Integumentary/Breasts
--- NOTE | 2021-06-22 15:25 | PCOTNOTE ---
On 06/22/21, the student, Laura CHEN, provided care and completed [facility] documentation on this patient. I have reviewed the student's documentation and agree with the findings.
[2021-06-22 16:41] LABS: Glucose Point of Care 113 mg/dl (65-105)
[2021-06-22 21:53] LABS: Glucose Point of Care 167 mg/dl (65-105)
[2021-06-23] VITALS (8 sets, daily range): BP systolic 137–142; BP diastolic 77–78; PULSE 52–70; RESP 16–20; TEMP 36.4–36.9; O2SAT 93–98
[2021-06-23] MEDS: HEPARIN SODIUM 5,000 UNITS/ML VIAL 5000 UNITS SUB-Q ×3 (05:00→20:58)
[2021-06-23 06:39] LABS: Albumin Level 3.3 g/dL (3.5-5.1); Anion Gap 9 mmol/L (8-16); Blood Urea Nitrogen 60 mg/dL (9-20); Calcium 7.2 mg/dL (8.4-10.2); Carbon Dioxide 26 mmol/L (22-30); Chloride 102 mmol/L (98-107); Estimated CRCL calculation 34 ml/min; Estimated Glomerular Filt Rate 25; Glucose 138 mg/dL (65-110); Phosphorus 3.6 mg/dL (2.5-4.5); Potassium 3.6 mmol/L (3.4-5.0); Sodium 137 mmol/L (137-145)
[2021-06-23 07:49] LABS: Glucose Point of Care 141 mg/dl (65-105)
--- NOTE | 2021-06-23 08:49 | PCNWS ---
Weekly nutritional screen. Patient is tolerating current diet with adequate intake. No weight loss reported. No nutritional needs at this time.
[2021-06-23] MEDS: CALCIUM ACETATE 667 MG TABLET PO ×3 (10:29→17:34)
[2021-06-23] MEDS: PANTOPRAZOLE SODIUM IV 40 MG VIAL IV PUSH ×2 (10:29→20:54)
--- NOTE | 2021-06-23 11:13 | P.PNNP_ITS ---
Progress Note: A&P Assessment and Plan (1) Acute renal failure: Qualifiers: Acute renal failure type: unspecified Qualified Code(s): N17.9 - Acute kidney failure, unspecified Code(s): N17.9 - Acute kidney failure, unspecified Status: Acute Assessment and Plan: * Acute kidney injury. * evaluation to date demonstrates: * prerenal urine electrolytes * normal renal ultrasound * mildly elevated CPK (but not high enough to cause this degree of ERIC/ARF) IV fluids are off. Creatinine is down to 2.6. Continue current therapy (2) Sepsis: Code(s): A41.9 - Sepsis, unspecified organism Status: Acute Assessment and Plan: * likely secondary to colitis * BP better s/p aggressive IVF resuscitation * blood negative so far. * Diarrhea improved. * Off antibiotics (3) Metabolic acidosis: Code(s): E87.2 - Acidosis Status: Acute Assessment and Plan: * resolved (4) Acute hyponatremia: Code(s): E87.1 - Hypo-osmolality and hyponatremia Status: Acute Assessment and Plan: Resolved (5) HTN (hypertension), benign: Code(s): I10 - Essential (primary) hypertension Status: Chronic Assessment and Plan: * Systolic blood pressure is starting to creep up. * Want to gets above 150 will restart the amlodipine. * His heart rate is in the 60s and low 70s so will hold off on the metoprolol for now. (6) DM2 (diabetes mellitus, type 2): Code(s): E11.9 - Type 2 diabetes mellitus without complications Status: Chronic Assessment and Plan: * follow Accu-Cheks * on sliding-scale insulin Subjective Date/time seen: 06/23/21 11:13 Interval history: Patient is feeling okay. Up in a chair. Slept pretty well. Eating okay. Bowels okay. Exam Narrative: General: WD/WN male in NAD Heart: normal S1 and S2; no rub Lungs: clear to auscultation Abdomen: soft, nontender, nondistended, positive bowel sounds Extremities: no edema or cyanosis Skin: No rash Objective Data Vital Signs Vital Signs: Vital Signs - 24 hr 06/22/21 12:00 06/22/21 14:45 06/22/21 16:00 Temperature 36.4 C Pulse Rate 73 64 73 Respiratory Rate 20 Blood Pressure 136/72 Pulse Oximetry 94 06/22/21 20:00 06/22/21 22:00 06/23/21 00:00 Temperature 37.2 C Pulse Rate 66 65 60 Respiratory Rate 16 16 Blood Pressure 141/70 H Pulse Oximetry 94 94 06/23/21 04:00 06/23/21 05:21 06/23/21 08:00 Temperature 36.9 C Pulse Rate 60 69 70 Respiratory Rate 20 Blood Pressure 142/78 H Pulse Oximetry 93 06/23/21 10:30 Temperature Pulse Rate Respiratory Rate Blood Pressure Pulse Oximetry 94 Intake/Output Intake/Output: Intake & Output 06/20/21 06/21/21 06/22/21 06/23/21 23:59 23:59 23:59 23:59 Intake Total 3310 2310 3640 1240 Output Total 4000 3700 3525 1999 Balance -690 -7656 115 -760 Meds/Results Medications: Active Medications Generic Name Dose Route Start Last Admin Trad
--- NOTE | 2021-06-23 11:13 | PM.PNNEP ---
Progress Note: A&P Assessment and Plan (1) Acute renal failure: Qualifiers: Acute renal failure type: unspecified Qualified Code(s): N17.9 - Acute kidney failure, unspecified Code(s): N17.9 - Acute kidney failure, unspecified Status: Acute Assessment and Plan: Acute kidney injury. evaluation to date demonstrates: prerenal urine electrolytes normal renal ultrasound mildly elevated CPK (but not high enough to cause this degree of ERIC/ARF) IV fluids are off. Creatinine is down to 2.6. Continue current therapy (2) Sepsis: Code(s): A41.9 - Sepsis, unspecified organism Status: Acute Assessment and Plan: likely secondary to colitis BP better s/p aggressive IVF resuscitation blood negative so far. Diarrhea improved. Off antibiotics (3) Metabolic acidosis: Code(s): E87.2 - Acidosis Status: Acute Assessment and Plan: resolved (4) Acute hyponatremia: Code(s): E87.1 - Hypo-osmolality and hyponatremia Status: Acute Assessment and Plan: Resolved (5) HTN (hypertension), benign: Code(s): I10 - Essential (primary) hypertension Status: Chronic Assessment and Plan: Systolic blood pressure is starting to creep up. Want to gets above 150 will restart the amlodipine. His heart rate is in the 60s and low 70s so will hold off on the metoprolol for now. (6) DM2 (diabetes mellitus, type 2): Code(s): E11.9 - Type 2 diabetes mellitus without complications Status: Chronic Assessment and Plan: follow Accu-Cheks on sliding-scale insulin Subjective Date/time seen: 06/23/21 11:13 Interval history: Patient is feeling okay. Up in a chair. Slept pretty well. Eating okay. Bowels okay. Exam Narrative: General: WD/WN male in NAD Heart: normal S1 and S2; no rub Lungs: clear to auscultation Abdomen: soft, nontender, nondistended, positive bowel sounds Extremities: no edema or cyanosis Skin: No rash Objective Data Vital Signs Vital Signs: Vital Signs - 24 hr 06/22/21 12:00 06/22/21 14:45 06/22/21 16:00 Temperature 36.4 C Pulse Rate 73 64 73 Respiratory Rate 20 Blood Pressure 136/72 Pulse Oximetry 94 06/22/21 20:00 06/22/21 22:00 06/23/21 00:00 Temperature 37.2 C Pulse Rate 66 65 60 Respiratory Rate 16 16 Blood Pressure 141/70 H Pulse Oximetry 94 94 06/23/21 04:00 06/23/21 05:21 06/23/21 08:00 Temperature 36.9 C Pulse Rate 60 69 70 Respiratory Rate 20 Blood Pressure 142/78 H Pulse Oximetry 93 06/23/21 10:30 Temperature Pulse Rate Respiratory Rate Blood Pressure Pulse Oximetry 94 Intake/Output Intake/Output: Intake & Output 06/20/21 06/21/21 06/22/21 06/23/21 23:59 23:59 23:59 23:59 Intake Total 3310 2310 3640 1240 Output Total 4000 3700 3525 1999 Excjeqo -611 -5413 115 -062 Meds/Results Medications: Active Medications Generic Name Dose Route Start Last Admin Trade Name Freq PRN Reason Stop Dose Admin Acetaminophen 650 mg 06/19/21 09:28 Acetaminophen 325 Mg Tablet PO Q4H PRN Mild Pain (1-3) or Fever Calcium Acetate 667 mg 06/19/21 09:00 06/23/21 10:29 Calcium Acetate 667 Mg Tablet PO 667 mg TID DOROTHY Administration Dextrose 12.5 gm 06/16/21 13:12 Dextrose 50% 25 Gm/50 Ml Syringe IV PUSH PRN PRN Hypoglycemia Protocol Glucagon 1 mg 06/16/21 13:12 Glucagon For Inj 1 Mg Vial IM PRN PRN Hypoglycemia Protocol Glucose 15 gm 06/16/21 13:12 Glucose Oral Gel 15 Gm Of Glucse In 37.5 Gm Tube PO PRN PRN Hypoglycemia Protocol Heparin Sodium (Porcine) 5,000 units 06/20/21 08:00 06/23/21 05:00 Heparin Sodium 5,000 Units/Ml Vial SUB-Q 5,000 units Q8HR DOROTHY Administration Dextrose 1,000 mls @ 100 mls/hr 06/16/21 13:12 Dextrose 5% 1,000 Ml IVPB PRN PRN Hypoglycemia Protocol
[2021-06-23 12:12] LABS: Glucose Point of Care 149 mg/dl (65-105)
--- NOTE | 2021-06-23 16:11 | PM.IMPN ---
Progress Note: A&P Assessment and Plan (1) Sepsis: Code(s): A41.9 - Sepsis, unspecified organism Status: Acute Assessment and Plan: Resolved. Secondary to colitis Patient has received IV fluid bolus and was on IV fluid maintenance. Blood pressures improved with IV fluids and patient has has been weaned vasopressors and was transferred to the regular medical floor. He was gentle hydration with normal saline at 50 cc/hour to help with kidney function recovery. Fluids were started on 06/22/2021. Currently blood pressure is increasing with systolic 140. Consider restarting BP medication once systolic BP over 150 (2) Colitis: Code(s): K52.9 - Noninfective gastroenteritis and colitis, unspecified Status: Acute Assessment and Plan: Resolved. Stool culture, WBC and C diff were ordered; diarrhea had resolved. Stop Rocephin and Flagyl IV . (3) Acute renal failure: Qualifiers: Acute renal failure type: unspecified Qualified Code(s): N17.9 - Acute kidney failure, unspecified Code(s): N17.9 - Acute kidney failure, unspecified Status: Acute Assessment and Plan: Resolving acute nonoliguric kidney injury, likely secondary to hypotension and dehydration. Creatinine is down to 2.6 today Likely prerenal which may have progressed to ATN. Renal function is improving and patient now appears to be in diuretic phase of ATN with high urine output CT did not show any morphologic abnormalities; no hydronephrosis or stones Nephrology following Stop the IV fluid hydration. Currently LASIX on hold. Kidney function is expected to continue to improve slowly. He is asymptomatic and has now improving urine output. Discussed with Dr. Burger. Continue conservative management Monitor urine output electrolytes and creatinine (4) Metabolic acidosis: Code(s): E87.2 - Acidosis Status: Acute Assessment and Plan: resolved (5) Acute hyponatremia: Code(s): E87.1 - Hypo-osmolality and hyponatremia Status: Acute Assessment and Plan: Resolved (6) HTN (hypertension), benign: Code(s): I10 - Essential (primary) hypertension Status: Chronic Assessment and Plan: Systolic blood pressure well controlled On no blood pressure meds right now Lasix on hold. Resume amlodipine when systolic BP over 150. Heart rates have been in the 60s and we will refrain from beta-blockers from the time being (7) DM2 (diabetes mellitus, type 2): Code(s): E11.9 - Type 2 diabetes mellitus without complications Status: Chronic Assessment and Plan: Fasting blood glucose 138; Accu-Chek in the 141-149 range. on sliding-scale insulin (8) Rhabdomyolysis: Code(s): M62.82 - Rhabdomyolysis Status: Acute Assessment and Plan: Etiology:Unable to determine, mild, resolved. Not significant enough to cause a KI. (9) Suspected COVID-19 virus infection: Code(s): Z20.822 - Contact with and (suspected) exposure to COVID-19 Status: Acute Additional Plan DVT prophylaxis -on heparin 5000 units subQ Q 8h. Stress ulcer prophylaxis - PPI Nutrition - diet ordered Code Status - Full Code Subjective Date/time seen: 06/23/21 16:11 S: Patient was examined at the bedside. He is feeling better every day. Appetite is good and breathing has improved. He denied any complaint. He is tolerating PT well. Review of Systems Review of Systems: All systems reviewed & are unremarkable except as noted in HPI and below (HPI) Constitutional: Constitutional: Reports as per HPI and Reports no additional constitutional complaints Eyes: Eyes: Reports as per HPI and Reports no additional eye complaints ENT: Reports system reviewed and no additional complaints, except as documented and Reports Normal hearing present Cardiovascular: Cardiovascular: Reports no additional cardiovascular complaints Respiratory: Respiratory:
--- NOTE | 2021-06-23 16:18 | PCOTNOTE ---
On 06/23/21, the student, Laura KILGORE, provided care and completed [facility] documentation on this patient. I have reviewed the student's documentation and agree with the findings.
[2021-06-23 17:05] LABS: Glucose Point of Care 121 mg/dl (65-105)
[2021-06-23 23:10] LABS: Glucose Point of Care 106 mg/dl (65-105)
[2021-06-24] VITALS (19 sets, daily range): BP systolic 110–142; BP diastolic 61–85; PULSE 53–83; RESP 14–20; TEMP 36.4–36.9; O2SAT 84–99
[2021-06-24] MEDS: HEPARIN SODIUM 5,000 UNITS/ML VIAL 5000 UNITS SUB-Q ×3 (06:05→22:22)
[2021-06-24 06:06] LABS: Potassium 3.7 mmol/L (3.4-5.0); Sodium 140 mmol/L (137-145)
[2021-06-24 06:07] LABS: Albumin Level 3.3 g/dL (3.5-5.1); Anion Gap 10 mmol/L (8-16); Blood Urea Nitrogen 48 mg/dL (9-20); Calcium 7.7 mg/dL (8.4-10.2); Carbon Dioxide 28 mmol/L (22-30); Chloride 102 mmol/L (98-107); Estimated CRCL calculation 40 ml/min; Estimated Glomerular Filt Rate 30; Glucose 147 mg/dL (65-110); Phosphorus 3.9 mg/dL (2.5-4.5)
[2021-06-24 07:50] LABS: Glucose Point of Care 150 mg/dl (65-105)
[2021-06-24] MEDS: CALCIUM ACETATE 667 MG TABLET PO ×2 (09:00→12:21)
[2021-06-24] MEDS: PANTOPRAZOLE SODIUM IV 40 MG VIAL IV PUSH (09:00)
--- NOTE | 2021-06-24 11:36 | PM.PNNEP ---
Progress Note: A&P Assessment and Plan (1) Acute renal failure: Qualifiers: Acute renal failure type: unspecified Qualified Code(s): N17.9 - Acute kidney failure, unspecified Code(s): N17.9 - Acute kidney failure, unspecified Status: Acute Assessment and Plan: Acute kidney injury. evaluation to date demonstrates: prerenal urine electrolytes normal renal ultrasound mildly elevated CPK (but not high enough to cause this degree of ERIC/ARF) IV fluids are off. Creatinine is down to 2.3 Continue current therapy okay for discharge from the kidney standpoint (2) Sepsis: Code(s): A41.9 - Sepsis, unspecified organism Status: Acute Assessment and Plan: resolved (3) Metabolic acidosis: Code(s): E87.2 - Acidosis Status: Acute Assessment and Plan: resolved (4) Acute hyponatremia: Code(s): E87.1 - Hypo-osmolality and hyponatremia Status: Acute Assessment and Plan: Resolved (5) HTN (hypertension), benign: Code(s): I10 - Essential (primary) hypertension Status: Chronic Assessment and Plan: Systolic blood pressure is ranging from 130-140. Want to gets above 150 will restart the amlodipine. His heart rate is in the 60s and low 70s so will hold off on the metoprolol for now. (6) DM2 (diabetes mellitus, type 2): Code(s): E11.9 - Type 2 diabetes mellitus without complications Status: Chronic Assessment and Plan: follow Accu-Cheks on sliding-scale insulin Subjective Date/time seen: 06/24/21 11:36 Interval history: Patient is feeling okay. Up in a chair. Eager for discharge. Eating and drinking well Exam Narrative: General: WD/WN male in NAD Heart: normal S1 and S2; no rub Lungs: clear Abdomen: soft, nontender, nondistended, positive bowel sounds Extremities: no edema or cyanosis Skin: No rash or subcu nodules Objective Data Vital Signs Vital Signs: Vital Signs - 24 hr 06/23/21 12:00 06/23/21 16:00 06/23/21 20:00 Temperature 36.4 C Pulse Rate 66 58 L 54 L Respiratory Rate 16 Blood Pressure 137/77 Pulse Oximetry 98 06/24/21 00:00 06/24/21 04:00 06/24/21 05:00 Temperature 36.4 C 36.6 C Pulse Rate 58 L 55 L 68 Respiratory Rate 16 18 Blood Pressure 129/77 132/82 Pulse Oximetry 97 98 06/24/21 08:00 06/24/21 09:05 Temperature 36.4 C Pulse Rate 61 Respiratory Rate 14 Blood Pressure 142/75 H Pulse Oximetry 95 96 Intake/Output Intake/Output: Intake & Output 06/21/21 06/22/21 06/23/21 06/24/21 23:59 23:59 23:59 23:59 Intake Total 2310 3640 3720 740 Output Total 3700 3525 5350 2800 Balance -1390 975 -7932 -3789 Meds/Results Medications: Active Medications Generic Name Dose Route Start Last Admin Trade Name Freq PRN Reason Stop Dose Admin Acetaminophen 650 mg 06/19/21 09:28 Acetaminophen 325 Mg Tablet PO Q4H PRN Mild Pain (1-3) or Fever Calcium Acetate 667 mg 06/19/21 09:00 06/24/21 09:00 Calcium Acetate 667 Mg Tablet PO 667 mg TID DOROTHY Administration Dextrose 12.5 gm 06/16/21 13:12 Dextrose 50% 25 Gm/50 Ml Syringe IV PUSH PRN PRN Hypoglycemia Protocol Glucagon 1 mg 06/16/21 13:12 Glucagon For Inj 1 Mg Vial IM PRN PRN Hypoglycemia Protocol Glucose 15 gm 06/16/21 13:12 Glucose Oral Gel 15 Gm Of Glucse In 37.5 Gm Tube PO PRN PRN Hypoglycemia Protocol Heparin Sodium (Porcine) 5,000 units 06/20/21 08:00 06/24/21 06:05 Heparin Sodium 5,000 Units/Ml Vial SUB-Q 5,000 units Q8HR DOROTHY Administration Dextrose 1,000 mls @ 100 mls/hr 06/16/21 13:12 Dextrose 5% 1,000 Ml IVPB PRN PRN Hypoglycemia Protocol Insulin Aspart 2 - 5 units 06/18/21 17:00 06/24/21 08:57 Insulin Aspart (*Bkc) 100 Units/Ml SUB-Q Not Given TIDWM DOROTHY Protocol Pantoprazole Sodium 40 mg 06/16/21
[2021-06-24 11:50] LABS: Glucose Point of Care 130 mg/dl (65-105)
[2021-06-24 17:02] LABS: Glucose Point of Care 106 mg/dl (65-105)
--- NOTE | 2021-06-24 18:32 | PM.IMPN ---
Progress Note: A&P Assessment and Plan (1) Sepsis: Code(s): A41.9 - Sepsis, unspecified organism Status: Acute Assessment and Plan: Resolved. Secondary to colitis Patient has received IV fluid bolus and was on IV fluid maintenance. Blood pressures improved with IV fluids and patient has has been weaned vasopressors and was transferred to the regular medical floor. He was gentle hydration with normal saline at 50 cc/hour to help with kidney function recovery. Fluids were started on 06/22/2021. Currently blood pressure is increasing with systolic 140. Consider restarting BP medication once systolic BP over 150 (2) Colitis: Code(s): K52.9 - Noninfective gastroenteritis and colitis, unspecified Status: Acute Assessment and Plan: Resolved. Stool culture, WBC and C diff were ordered; diarrhea had resolved. Stop Rocephin and Flagyl IV . (3) Acute renal failure: Qualifiers: Acute renal failure type: unspecified Qualified Code(s): N17.9 - Acute kidney failure, unspecified Code(s): N17.9 - Acute kidney failure, unspecified Status: Acute Assessment and Plan: Resolving acute nonoliguric kidney injury, likely secondary to hypotension and dehydration. Creatinine is down to 2.2 today Likely prerenal which may have progressed to ATN. Renal function is improving and patient now appears to be in diuretic phase of ATN with high urine output CT did not show any morphologic abnormalities; no hydronephrosis or stones Nephrology following Stop the IV fluid hydration. Currently LASIX on hold. Kidney function is expected to continue to improve slowly. He is asymptomatic and has now improving urine output. Discussed with Dr. Burger. Continue conservative management Monitor urine output electrolytes and creatinine (4) Metabolic acidosis: Code(s): E87.2 - Acidosis Status: Acute Assessment and Plan: resolved (5) Acute hyponatremia: Code(s): E87.1 - Hypo-osmolality and hyponatremia Status: Acute Assessment and Plan: Resolved (6) HTN (hypertension), benign: Code(s): I10 - Essential (primary) hypertension Status: Chronic Assessment and Plan: Systolic blood pressure well controlled On no blood pressure meds right now Lasix on hold. Resume amlodipine when systolic BP over 150. Heart rates have been in the 60s and we will refrain from beta-blockers from the time being. Patient instructed to keep a blood pressure log book and to follow up with his primary care provider regarding reinstatement of BP medications. (7) DM2 (diabetes mellitus, type 2): Code(s): E11.9 - Type 2 diabetes mellitus without complications Status: Chronic Assessment and Plan: Fasting blood glucose 147; Accu-Chek in the 106-150 range. on sliding-scale insulin (8) Rhabdomyolysis: Code(s): M62.82 - Rhabdomyolysis Status: Acute Assessment and Plan: Etiology:Unable to determine, mild, resolved. Not significant enough to cause a KI. (9) Suspected COVID-19 virus infection: Code(s): Z20.822 - Contact with and (suspected) exposure to COVID-19 Status: Acute Additional Plan DVT prophylaxis -on heparin 5000 units subQ Q 8h. Stress ulcer prophylaxis - PPI Nutrition - diet ordered Code Status - Full Code Subjective Date/time seen: 06/24/21 18:32 S: Patient examined at the bedside he denies any complaints. Home O2 evaluation done. Patient needs 2 L of oxygen with activity. There was an a successful voiding trial and patient will remained overnight to wait for home oxygen set up. Review of Systems Review of Systems: All systems reviewed & are unremarkable except as noted in HPI and below (HPI) Constitutional: Constitutional: Reports as per HPI and Reports no additional constitutional complaints Eyes: Eyes: Reports as per HPI and Reports no additional eye complaints ENT: Report
[2021-06-24] MEDS: TAMSULOSIN HCL 0.4 MG CAPSULE PO (22:22)
[2021-06-24 22:27] LABS: Glucose Point of Care 188 mg/dl (65-105)
[2021-06-25] VITALS (8 sets, daily range): BP systolic 120–146; BP diastolic 64–76; PULSE 56–89; RESP 14–18; TEMP 36.7–36.8; O2SAT 93–100
[2021-06-25 06:00] LABS: Hematocrit 34.9 % (42.0-52.0); Hemoglobin 11.7 g/dL (14.0-18.0); Mean Corpuscular HGB Conc 33.5 g/dl (32-36); Mean Corpuscular Hemoglobin 30.1 pg (26-34); Mean Corpuscular Volume 89.7 fl (80-100); Mean Platelet Volume 9.2 fl (7.4-10.4); Platelet Count Result 249 k/mm3 (150-375); Red Blood Count 3.89 M/mm3 (4.6-6.20); White Blood Count 8.8 K/mm3 (4.5-10.0)
[2021-06-25 06:17] LABS: Anion Gap 9 mmol/L (8-16); Blood Urea Nitrogen 41 mg/dL (9-20); Calcium 7.5 mg/dL (8.4-10.2); Carbon Dioxide 28 mmol/L (22-30); Chloride 103 mmol/L (98-107); Estimated CRCL calculation 44 ml/min; Estimated Glomerular Filt Rate 34; Glucose 147 mg/dL (65-110); Potassium 3.7 mmol/L (3.4-5.0); Sodium 140 mmol/L (137-145)
[2021-06-25] MEDS: HEPARIN SODIUM 5,000 UNITS/ML VIAL 5000 UNITS SUB-Q ×2 (06:24→13:35)
[2021-06-25] MEDS: ACETAMINOPHEN 325 MG TABLET 650 MG PO (06:27)
[2021-06-25 08:00] LABS: Glucose Point of Care 141 mg/dl (65-105)
[2021-06-25] MEDS: TAMSULOSIN HCL 0.4 MG CAPSULE PO (09:06)
--- NOTE | 2021-06-25 09:26 | PM.IMPN ---
Progress Note: A&P Assessment and Plan (1) Sepsis: Code(s): A41.9 - Sepsis, unspecified organism Status: Acute Assessment and Plan: Resolved. Secondary to colitis Patient has received IV fluid boluses on admission and was on IV fluid maintenance. Blood pressures improved with IV fluids and patient has has been weaned vasopressors and was transferred to the regular medical floor. He was on gentle hydration with normal saline at 50 cc/hour to help with kidney function recovery. Intravenous fluids were stopped on 06/22/2021. Currently blood pressure is increasing with systolic 140. Patient Started on tamsulosin for management of urinary obstruction. This may help blood pressure control. Consider restarting home BP medications once systolic BP over 140. (2) Urinary retention: Code(s): R33.9 - Retention of urine, unspecified Status: Acute Assessment and Plan: acute root urinary retention, likely secondary to BPH. Miller inserted without issues. Patient started on tamsulosin. Follow-up with urology as an outpatient. (3) Colitis: Code(s): K52.9 - Noninfective gastroenteritis and colitis, unspecified Status: Acute Assessment and Plan: Resolved. Stool culture, WBC and C diff were ordered; diarrhea had resolved. Stop Rocephin and Flagyl IV . (4) Acute renal failure: Qualifiers: Acute renal failure type: unspecified Qualified Code(s): N17.9 - Acute kidney failure, unspecified Code(s): N17.9 - Acute kidney failure, unspecified Status: Acute Assessment and Plan: Resolving acute nonoliguric kidney injury, likely secondary to hypotension and dehydration. Creatinine is improving slowly, down to 2.0 today. Likely prerenal which may have progressed to ATN. Renal function is improving and patient now appears to be in diuretic phase of ATN with high urine output. Patient producing P goes urinary output, with over 4 L of urine overnight.CT did not show any morphologic abnormalities; no hydronephrosis or stones. Nephrology following Stop the IV fluid hydration. Currently LASIX on hold. Kidney function is expected to continue to improve slowly. He is asymptomatic and has now improving urine output. Discussed with Dr. Burger. Continue conservative management Monitor urine output electrolytes and creatinine (5) Metabolic acidosis: Code(s): E87.2 - Acidosis Status: Acute Assessment and Plan: resolved (6) Acute hyponatremia: Code(s): E87.1 - Hypo-osmolality and hyponatremia Status: Acute Assessment and Plan: Resolved (7) HTN (hypertension), benign: Code(s): I10 - Essential (primary) hypertension Status: Chronic Assessment and Plan: Systolic blood pressure well controlled blood pressure meds remain on hold. Lasix on hold. patient started on tamsulosin due to urinary retention. Resume amlodipine when systolic BP over 140. Heart rates have been in the 60s and we will refrain from beta-blockers from the time being. Patient instructed to keep a blood pressure log book and to follow up with his primary care provider regarding reinstatement of BP medications. (8) DM2 (diabetes mellitus, type 2): Code(s): E11.9 - Type 2 diabetes mellitus without complications Status: Chronic Assessment and Plan: Fasting blood glucose 147; Accu-Chek in the 141-188 range. on sliding-scale insulin (9) Rhabdomyolysis: Code(s): M62.82 - Rhabdomyolysis Status: Acute Assessment and Plan: Etiology:Unable to determine, mild, resolved. Not significant enough to cause a kidney injury.. Additional Plan DVT prophylaxis -on heparin 5000 units subQ Q 8h. Stress ulcer prophylaxis - PPI Nutrition - diet ordered Code Status - Full Code Subjective Date/time seen: 06/25/21 09:26 S: Patient was examined at the bedside. He denies any complaints. Yesterday due to fa
--- NOTE | 2021-06-25 09:35 | PM.PNNEP ---
Progress Note: A&P Assessment and Plan (1) Acute renal failure: Qualifiers: Acute renal failure type: unspecified Qualified Code(s): N17.9 - Acute kidney failure, unspecified Code(s): N17.9 - Acute kidney failure, unspecified Status: Acute Assessment and Plan: Acute kidney injury. evaluation to date demonstrates: prerenal urine electrolytes normal renal ultrasound mildly elevated CPK (but not high enough to cause this degree of ERIC/ARF) IV fluids are off. Creatinine is down to 2.0 he is getting close to his chronic level. Discussed with Dr. Solomon (2) Sepsis: Code(s): A41.9 - Sepsis, unspecified organism Status: Acute Assessment and Plan: resolved (3) Metabolic acidosis: Code(s): E87.2 - Acidosis Status: Acute Assessment and Plan: resolved (4) Acute hyponatremia: Code(s): E87.1 - Hypo-osmolality and hyponatremia Status: Acute Assessment and Plan: Resolved (5) HTN (hypertension), benign: Code(s): I10 - Essential (primary) hypertension Status: Chronic Assessment and Plan: Systolic blood pressure is ranging from 130-140. tamsulosin was started to help his prostate. This might help his blood pressure also. His heart rate is in the 60s and low 70s so will hold off on the metoprolol for now. (6) DM2 (diabetes mellitus, type 2): Code(s): E11.9 - Type 2 diabetes mellitus without complications Status: Chronic Assessment and Plan: follow Accu-Cheks on sliding-scale insulin Subjective Date/time seen: 06/25/21 09:35 Interval history: Patient is feeling okay. Up in a chair. He was going to go home yesterday but ended up desaturating when he walked the halls. So he is getting home oxygen and it needs to be set up. He also had urinary retention. A Miller was placed and he is going to see Urology as an outpatient Exam Narrative: General: WD/WN male in NAD Heart: normal S1 and S2; no rub Lungs: clear bilaterally Abdomen: soft, nontender, nondistended, positive bowel sounds Extremities: no edema or cyanosis Skin: No rash or subcu nodules Objective Data Vital Signs Vital Signs: Vital Signs - 24 hr 06/24/21 12:00 06/24/21 12:47 06/24/21 13:24 Temperature 36.9 C Pulse Rate 72 74 Respiratory Rate 14 Blood Pressure 127/61 Pulse Oximetry 97 98 06/24/21 15:50 06/24/21 15:51 06/24/21 15:52 Temperature Pulse Rate 72 80 83 Respiratory Rate Blood Pressure Pulse Oximetry 96 94 95 06/24/21 15:54 06/24/21 15:55 06/24/21 15:56 Temperature Pulse Rate 82 68 70 Respiratory Rate Blood Pressure Pulse Oximetry 92 85 L 84 L 06/24/21 15:57 06/24/21 15:58 06/24/21 16:00 Temperature 36.7 C Pulse Rate 70 71 66 Respiratory Rate 14 Blood Pressure 134/85 Pulse Oximetry 92 94 99 06/24/21 20:00 06/24/21 22:50 06/25/21 00:00 Temperature 36.6 C 36.7 C Pulse Rate 69 85 Respiratory Rate 20 18 Blood Pressure 110/75 131/73 Pulse Oximetry 93 93 100 06/25/21 04:00 Temperature 36.8 C Pulse Rate 72 Respiratory Rate 18 Blood Pressure 146/76 H Pulse Oximetry 93 Intake/Output Intake/Output: Intake & Output 06/22/21 06/23/21 06/24/21 06/25/21 23:59 23:59 23:59 23:59 Intake Total 3640 3720 980 550 Output Total 3525 5350 3850 3000 Balance 683 -3138 -9906 -5780 Meds/Results Medications: Active Medications Generic Name Dose Route Start Last Admin Trade Name Freq PRN Reason Stop Dose Admin Acetaminophen 650 mg 06/19/21 09:28 06/25/21 06:27 Acetaminophen 325 Mg Tablet PO 650 mg Q4H PRN Administration Mild Pain (1-3) or Fever Dextrose 12.5 gm 06/16/21 13:12 Dextrose 50% 25 Gm/50 Ml Syringe IV PUSH PRN PRN Hypoglycemia Protocol Glucagon 1 mg 06/16/21 13:12 Glucagon For Inj 1 Mg Vial IM PRN PRN Hypoglycemia Protocol Gluco
--- NOTE | 2021-06-25 11:16 | WPDURCON ---
Assessment and Plan Assessment and plan (1) Urinary retention: Code(s): R33.9 - Retention of urine, unspecified Status: Acute Assessment and Plan: prostate looks small on CT scan. Hopefully this is a transient issue due to his recent change in health status. Please send home with his Miller catheter. Please start him on Flomax. I will arrange outpatient urologic follow-up. Urology Consult Note HPI Date Seen: 06/25/21 Requesting Physician: Jakob Sky MD Primary Care Provider: Cuate Dennison MD Consult Narrative Narrative: Amaury Denton is a 65 year old male Seen at request of the hospitalist. He was admitted with gastroenteritis and colitis. He now has issues with urinary retention. This is a new problem for him. He denies any previous difficulties voiding. He denies any history of prostate cancer. Denies any history of blood in the urine. He denies any history of urinary tract infection. Miller catheter has been replaced and he started on Flomax. He set for discharge home today. We will see him next week for a voiding trial. He is currently tolerating the Miller catheter Review of Systems Review of Systems: All systems reviewed & are unremarkable except as noted in HPI and below PMFSH Past Medical History Medical History Abdominal aortic aneurysm (AAA) DM2 (diabetes mellitus, type 2) History of amputation of great toe HTN (hypertension), benign Hyperlipidemia Obesity Surgical History Surgical History History of surgical removal of ganglion cyst Status post removal of part of parathyroid Family History Family History Father Hypertension Family history of lung cancer Sibling Patient's sister is in good health Patient's brother is in good health Mother Breast cancer Social History Social History Social History: The patient stated that he used to smoked. The patient lives with his . The patient lives with his who is the durable power attorney at law for healthcare. 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 Code status full code Smoking status: Former smoker Tobacco type: cigarettes Second hand tobacco smoke exposure: No Alcohol intake: former Substance use: never Substance use type: does not use Gender identity (if verbalized by the patient): Male Sexual Orientation (if Verbalized by the Patient): Straight or Heterosexual Spiritual care concerns: No Meds Home Medications and Allergies Home Medications Medication Instructions Recorded Confirmed Type aspirin 81 mg tablet,delayed 81 mg PO DAILY 06/26/19 06/17/21 History release cinnamon bark 500 mg capsule 1,000 mg PO DAILY 06/26/19 06/17/21 History multivitamin 1 tablet PO DAILY 06/26/19 06/17/21 History omega-3 fatty acids 500 mg capsule 1,000 mg PO DAILY 06/26/19 06/17/21 History metoprolol tartrate 50 mg tablet 50 mg PO Q12H 10/24/20 06/17/21 History simvastatin 20 mg tablet 20 mg PO DAILY #90 tablet 10/31/20 06/17/21 Rx colesevelam 3.75 gram oral powder See Rx Instructions .ROUTE 12/05/20 06/17/21 Rx packet .COMPLEX #90 gram glipizide 5 mg tablet 5 mg PO BID #180 tablet 01/09/21 06/17/21 Rx metformin 500 mg tablet See Rx Instructions .ROUTE 01/16/21 06/17/21 Rx .COMPLEX #270 tablet insulin detemir U-100 100 unit/mL 25 unit SUB-Q DAILY #15 ml 05/01/21 06/17/21 Rx (3 mL) subcutaneous pen amlodipine 5 mg tablet 5 mg PO DAILY #30 tablet 05/30/21 06/17/21 Rx lisinopril 20 mg PO DAILY 06/17/21 06/17/21 History Allergies Allergy/AdvReac Type Severity Reaction Status Date / Time No Known Allergies Allergy Verified 05/30/21 07:51 Vital Signs Vital Signs - 24 hr 06/24/21 12:00 06/24/21 12:4
[2021-06-25 11:59] LABS: Glucose Point of Care 278 mg/dl (65-105)
[2021-06-25] MEDS: INSULIN ASPART (*BKC) 100 UNITS/ML SUB-Q (12:37)
[2021-06-25 16:14] LABS: Glucose Point of Care 126 mg/dl (65-105)
--- NOTE | 2021-06-25 17:04 | PM.DS ---
DS: Admitting Diagnosis Discharge Date 06/25/2021 Admitting Diagnosis (1) Sepsis: (2) Colitis: (3) Acute renal failure: (4) Hypoglycemia: (5) Metabolic acidosis: (6) Acute hyponatremia: (7) Abdominal aortic aneurysm (AAA): (8) Type 2 diabetes mellitus with hyperglycemia: (9) Suspected COVID-19 virus infection: Co DS: Discharge Diagnosis Discharge Diagnosis (1) Sepsis: Code(s): A41.9 - Sepsis, unspecified organism Status: Acute Assessment and Plan: Resolved. Secondary to colitis Patient has received IV fluid boluses on admission and was on IV fluid maintenance. Blood pressures improved with IV fluids and patient has has been weaned vasopressors and was transferred to the regular medical floor. He was on gentle hydration with normal saline at 50 cc/hour to help with kidney function recovery. Intravenous fluids were stopped on 06/22/2021. Currently blood pressure is increasing with systolic 140. Patient Started on tamsulosin for management of urinary obstruction. This may help blood pressure control. Consider restarting home BP medications once systolic BP over 140. (2) Urinary retention: Code(s): R33.9 - Retention of urine, unspecified Status: Acute Assessment and Plan: acute root urinary retention, likely secondary to BPH. Miller inserted without issues. Patient started on tamsulosin. Follow-up with urology as an outpatient. (3) Colitis: Code(s): K52.9 - Noninfective gastroenteritis and colitis, unspecified Status: Acute Assessment and Plan: Resolved. Stool culture, WBC and C diff were ordered; diarrhea had resolved. Stop Rocephin and Flagyl IV . (4) Acute renal failure: Qualifiers: Acute renal failure type: unspecified Qualified Code(s): N17.9 - Acute kidney failure, unspecified Code(s): N17.9 - Acute kidney failure, unspecified Status: Acute Assessment and Plan: Resolving acute nonoliguric kidney injury, likely secondary to hypotension and dehydration. Creatinine is improving slowly, down to 2.0 today. Likely prerenal which may have progressed to ATN. Renal function is improving and patient now appears to be in diuretic phase of ATN with high urine output. Patient producing P goes urinary output, with over 4 L of urine overnight.CT did not show any morphologic abnormalities; no hydronephrosis or stones. Nephrology following Stop the IV fluid hydration. Currently LASIX on hold. Kidney function is expected to continue to improve slowly. He is asymptomatic and has now improving urine output. Discussed with Dr. Burger. Continue conservative management Monitor urine output electrolytes and creatinine (5) Metabolic acidosis: Code(s): E87.2 - Acidosis Status: Acute Assessment and Plan: resolved (6) Acute hyponatremia: Code(s): E87.1 - Hypo-osmolality and hyponatremia Status: Acute Assessment and Plan: Resolved (7) HTN (hypertension), benign: Code(s): I10 - Essential (primary) hypertension Status: Chronic Assessment and Plan: Systolic blood pressure well controlled blood pressure meds remain on hold. Lasix on hold. patient started on tamsulosin due to urinary retention. Resume amlodipine when systolic BP over 140. Heart rates have been in the 60s and we will refrain from beta-blockers from the time being. Patient instructed to keep a blood pressure log book and to follow up with his primary care provider regarding reinstatement of BP medications. (8) DM2 (diabetes mellitus, type 2): Code(s): E11.9 - Type 2 diabetes mellitus without complications Status: Chronic Assessment and Plan: Fasting blood glucose 147; Accu-Chek in the 141-188 range. on sliding-scale insulin (9) Rhabdomyolysis: Code(s): M62.82 - Rhabdomyolysis Status: Acute Assessment and Plan: Etiology:Unable to determine, mild, resolved. N
== END 2021-06-25 18:50 | disposition home health service (06) | DRG 871 ==
LOC: ANHED 09:14 → ANHICU 10:59 → ANH2MED 06-22 14:50 → ANHICU 06-26 16:31
PROVIDERS: Emergency Medicine; Internal Medicine; Internal Medicine Gastroenterology; Internal Medicine Nephrology; Nurse Practitioner; Admitting Provider Internal Medicine; Emergency Provider Emergency Medicine; PCP Family Medicine; Visit Provider Internal Medicine
DX: A41.9 Sepsis, unspecified organism (principal); J96.01 Acute respiratory failure with hypoxia; N17.9 Acute kidney failure, unspecified; E87.2 Acidosis; E87.1 Hypo-osmolality and hyponatremia; M62.82 Rhabdomyolysis; D69.6 Thrombocytopenia, unspecified; K52.9 Noninfective gastroenteritis and colitis, unspecified; K29.80 Duodenitis without bleeding; K27.9 Peptic ulcer, site unspecified, unspecified as acute or chronic, without hemorrhage or perforation; Z20.822 Contact with and (suspected) exposure to COVID-19; R33.9 Retention of urine, unspecified; E11.649 Type 2 diabetes mellitus with hypoglycemia without coma; E11.65 Type 2 diabetes mellitus with hyperglycemia; I10 Essential (primary) hypertension; E78.5 Hyperlipidemia, unspecified; I71.4 Abdominal aortic aneurysm, without rupture; E87.8 Other disorders of electrolyte and fluid balance, not elsewhere classified; E86.0 Dehydration; D64.9 Anemia, unspecified; E66.9 Obesity, unspecified; Z68.34 Body mass index [BMI] 34.0-34.9, adult; Z79.4 Long term (current) use of insulin; Z79.82 Long term (current) use of aspirin; Z79.84 Long term (current) use of oral hypoglycemic drugs; Z87.891 Personal history of nicotine dependence
CPT/HCPCS: 36415; 36600; 51702; 71045; 74176; 76775; 80048; 80053; 80069; 81001; 82550; 82570; 82805; 82948; 83605; 83735; 84100; 84134; 84156; 84300; 84443; 84484; 85014; 85018; 85025; 85027; 87015; 87040; 87045; 87177; 87209; 87269; 87272; 87427; 89055; 93005; 94618; 96361; 96374; 97110; 97116; 97162; 97165; 97530; 97535; 99285; A9270; C9113; C9803; J0456; J0610; J0696; J1644; J1815; J1940; J3480; J7030; J7070; U0003; U0005

== ENCOUNTER 2021-06-26 11:31 | Outpatient (NON) | payer MEDICARE, OTHER, SELFPAY ==
[2021-06-26 12:04] LABS: Anion Gap 10 mmol/L (8-16); Blood Urea Nitrogen 33 mg/dL (9-20); Calcium 8.3 mg/dL (8.4-10.2); Carbon Dioxide 28 mmol/L (22-30); Chloride 101 mmol/L (98-107); Estimated Glomerular Filt Rate 34; Glucose 276 mg/dL (65-110); Sodium 139 mmol/L (137-145)
== END 2021-06-26 11:32 | disposition home or self-care (01) ==
PROVIDERS: PCP Family Medicine; Visit Provider Internal Medicine
DX: E87.1 Hypo-osmolality and hyponatremia (principal)
CPT/HCPCS: 80048

== ENCOUNTER 2021-07-03 14:44 | Outpatient (CLI) | payer MEDICARE, OTHER, SELFPAY ==
[2021-07-03 15:27] LABS: Basophils Absolute Auto 0.1 K/mm3 (0.0-0.1); Eosinophils Absolute Auto 0.2 K/mm3 (0-0.3); Eosinophils Percent Auto 2.6 % (0-4.4); Hematocrit 42.4 % (42.0-52.0); Hemoglobin 14.2 g/dL (14.0-18.0); Immature Granulocyte Absolute 0.02 K/mm3 (0.00-0.031); Immature Granulocyte Percent A 0.3 % (0-0.5); Lymphocytes Absolute Auto 1.14 K/mm3 (0.9-3.2); Lymphocytes Percent Auto 14.3 % (18.3-44.2); Mean Corpuscular HGB Conc 33.5 g/dl (32-36); Mean Corpuscular Hemoglobin 29.5 pg (26-34); Mean Corpuscular Volume 88.1 fl (80-100); Mean Platelet Volume 9.6 fl (7.4-10.4); Monocytes Absolute Auto 1.2 K/mm3 (0.1-0.6); Monocytes Percent Auto 15.5 % (2.6-8.5); Neutrophils Absolute Auto 5.3 K/mm3 (1.3-6.7); Neutrophils Percent Auto 66.3 % (45.5-73.1); Platelet Count Result 361 k/mm3 (150-375); Red Blood Count 4.81 M/mm3 (4.6-6.20); Red Cell Distribution Width 12.7 % (11.5-14.5)
[2021-07-03 15:54] LABS: Alanine Aminotransferase 41 U/L (4-50); Albumin Level 3.7 g/dL (3.5-5.1); Alkaline Phosphatase 47 U/L (38-126); Anion Gap 13 mmol/L (8-16); Aspartate Amino Transferase 39 U/L (17-59); Bilirubin,Total 0.7 mg/dL (0.2-1.3); Blood Urea Nitrogen 67 mg/dL (9-20); Carbon Dioxide 13 mmol/L (22-30); Chloride 103 mmol/L (98-107); Estimated Glomerular Filt Rate 25; Glucose 117 mg/dL (65-110); Potassium 5.6 mmol/L (3.4-5.0); Sodium 129 mmol/L (137-145)
== END 2021-07-03 14:45 | disposition home or self-care (01) ==
PROVIDERS: PCP Family Medicine; Visit Provider Nurse Practitioner Family
DX: K52.9 Noninfective gastroenteritis and colitis, unspecified (principal)
CPT/HCPCS: 36415; 80053; 85025

== ENCOUNTER 2021-07-05 09:33 | Outpatient (CLI) | payer MEDICARE, OTHER, SELFPAY ==
[2021-07-05 11:14] LABS: Alanine Aminotransferase 31 U/L (4-50); Albumin Level 3.6 g/dL (3.5-5.1); Alkaline Phosphatase 52 U/L (38-126); Anion Gap 12 mmol/L (8-16); Aspartate Amino Transferase 29 U/L (17-59); Bilirubin,Total 0.6 mg/dL (0.2-1.3); Blood Urea Nitrogen 49 mg/dL (9-20); Calcium 8.3 mg/dL (8.4-10.2); Carbon Dioxide 18 mmol/L (22-30); Chloride 104 mmol/L (98-107); Estimated Glomerular Filt Rate 38; Glucose 124 mg/dL (65-110); Potassium 4.7 mmol/L (3.4-5.0); Sodium 134 mmol/L (137-145)
== END 2021-07-05 09:34 | disposition home or self-care (01) ==
PROVIDERS: PCP Family Medicine; Visit Provider Nurse Practitioner Family
DX: I10 Essential (primary) hypertension (principal); E11.65 Type 2 diabetes mellitus with hyperglycemia; E78.2 Mixed hyperlipidemia; R35.1 Nocturia
CPT/HCPCS: 36415; 80053

== ENCOUNTER 2021-07-13 10:01 | Outpatient (CLI) | payer MEDICARE, OTHER, SELFPAY ==
[2021-07-13 11:04] LABS: Alanine Aminotransferase 25 U/L (4-50); Albumin Level 3.5 g/dL (3.5-5.1); Alkaline Phosphatase 54 U/L (38-126); Anion Gap 8 mmol/L (8-16); Aspartate Amino Transferase 34 U/L (17-59); Bilirubin,Total 0.2 mg/dL (0.2-1.3); Blood Urea Nitrogen 15 mg/dL (9-20); Calcium 8.7 mg/dL (8.4-10.2); Carbon Dioxide 26 mmol/L (22-30); Chloride 103 mmol/L (98-107); Estimated Glomerular Filt Rate 43; Glucose 138 mg/dL (65-110); Potassium 4.4 mmol/L (3.4-5.0); Sodium 137 mmol/L (137-145)
== END 2021-07-13 10:02 | disposition home or self-care (01) ==
LOC: ANHLAB 10:05
PROVIDERS: PCP Family Medicine; Visit Provider Physician Assistant
DX: J96.00 Acute respiratory failure, unspecified whether with hypoxia or hypercapnia (principal); E87.1 Hypo-osmolality and hyponatremia
CPT/HCPCS: 36415; 80053

== ENCOUNTER 2021-07-13 10:40 | Outpatient (CLI) | payer MEDICARE, OTHER, SELFPAY ==
--- NOTE | ~2021-07-13 | XR_ITS ---
EXAMINATION: XR chest 2V DATE: 07/13/2021 11:07 INDICATION: Hypoxemia. TECHNIQUE: Frontal and lateral views of the chest were obtained. COMPARISON: Chest single view 06/25/2021, CT abdomen and pelvis 06/16/2021 FINDINGS: Calcified right lung nodules and calcified right hilar lymph nodes are consistent with old granulomatous disease. No pleural effusion or pneumothorax. The heart size is normal. There are promi nent paracardial fat pads. IMPRESSION: 1. No acute cardiopulmonary disease. Reviewed, dictated and finalized at location B. [facility] CARE COORDINATOR
== END 2021-07-13 10:41 | disposition home or self-care (01) ==
PROVIDERS: PCP Family Medicine; Visit Provider Internal Medicine
DX: J96.00 Acute respiratory failure, unspecified whether with hypoxia or hypercapnia (principal)
CPT/HCPCS: 36415; 71046; 80053

== ENCOUNTER 2021-07-20 07:32 | Outpatient (CLI) | payer MEDICARE, OTHER, SELFPAY ==
--- NOTE | ~2021-07-20 | CT_ITS ---
EXAMINATION: CT lung screening DATE: 07/20/2021 07:57 INDICATION: hx of tobacco dependence TECHNIQUE: Computed tomography (CT) of the chest was performed without intravenous contrast. Addition al 3D reconstructions utilizing coronal maximum intensity projection (MIP) were performed. Automated exposure control and iterative reconstruction technique were employed. The dose-length product was 27 6.73 mGy-cm. COMPARISON: 07/05/2020 FINDINGS: Mild biapical emphysema. Small focus of linear discoid atelectasis in the right upper and bilateral l ower lobes. Calcified right lower lobe nodule along with calcified right hilar and mediastinal lymph nodes and a few small splenic calcific lesions consistent with old granulomatous disease. Unchanged 3 -4 mm noncalcified right lower lobe nodule in the right lower lobe. No new or enlarging pulmonary nod ules. Heart size is normal. Atherosclerotic coronary artery calcific location. No pericardial effusio n. No pathologically enlarged thoracic lymphadenopathy. Mild to moderate thoracic spondylosis. IMPRESSION: 1. Lung-RADS category 2: Benign appearance or behavior. Continue annual screening with noncontrast lo w-dose chest CT in 12 months. Reviewed, dictated and finalized at location B. TARY PILOT IMPRESSION: 1. Lung-RADS category 2: Benign appearance or behavior. Continue annual screeni ng with noncontrast low-dose chest CT in 12 months.
== END 2021-07-20 07:33 | disposition home or self-care (01) ==
PROVIDERS: PCP Family Medicine; Visit Provider Physician Assistant
DX: Z12.2 Encounter for screening for malignant neoplasm of respiratory organs (principal); Z87.891 Personal history of nicotine dependence
CPT/HCPCS: 71271

== ENCOUNTER 2021-11-07 07:22 | Outpatient (CLI) | payer MEDICARE, OTHER, SELFPAY ==
[2021-11-07 07:45] LABS: Hematocrit 40.5 % (42.0-52.0); Hemoglobin 13.5 g/dL (14.0-18.0); Mean Corpuscular HGB Conc 33.3 g/dl (32-36); Mean Corpuscular Hemoglobin 29.4 pg (26-34); Mean Corpuscular Volume 88.2 fl (80-100); Mean Platelet Volume 9.8 fl (7.4-10.4); Platelet Count Result 197 k/mm3 (150-375); Red Blood Count 4.59 M/mm3 (4.6-6.20); White Blood Count 8.5 K/mm3 (4.5-10.0)
[2021-11-07 07:47] LABS: Add Urine Microscopic? YES; Appearance Urine Clear (Clear); Bilirubin Urine Negative (Negative); Blood Urine Negative (Negative); Color Urine Yellow (Yellow); Glucose Urine UA Negative (Negative); Ketones Urine Negative (Negative); Leukocyte Esterase Ur Negative LEU/UL (NEGATIVE); Mucus Urine Rare /lpf; Nitrate Urine Negative (Negative); Protein Urine 2+ mg/dL (Negative); RBC Urine 0-2 /hpf (0-2); Specific Grav Ur 1.017 (1.001-1.035); Squamous Epithelial Cell Urine Rare /hpf (Few); Urobilinogen Urine Negative mg/dL (<2.0); WBC Urine 0-3 /hpf (0-3)
[2021-11-07 08:03] LABS: Cholesterol 148 mg/dL (0-200); HDL Direct 27 mg/dL; Triglycerides 216 mg/dL (<150)
[2021-11-07 08:06] LABS: Creatinine Urine 114.1 mg/dL
[2021-11-07 08:12] LABS: Hemoglobin A1C 6.3 % (<5.7)
[2021-11-07 08:15] LABS: LDL Cholesterol Direct 64 mg/dL
[2021-11-07 08:29] LABS: MALB Creatinine Ratio 419.6 mg/g (0-30); Microalbumin Urine Random 478.8 mg/L (0-16.7)
[2021-11-07 08:35] LABS: Prostate Specific Antigen 0.4 ng/mL (< OR = 4.0)
[2021-11-07 08:48] LABS: Vitamin D 25 Hydroxy 61.7 ng/mL
== END 2021-11-07 07:23 | disposition home or self-care (01) ==
LOC: ANHLAB 07:28
PROVIDERS: PCP Family Medicine; Visit Provider Physician Assistant
DX: E55.9 Vitamin D deficiency, unspecified (principal); E11.65 Type 2 diabetes mellitus with hyperglycemia; E78.2 Mixed hyperlipidemia; Z00.00 Encounter for general adult medical examination without abnormal findings; R35.1 Nocturia; I10 Essential (primary) hypertension
CPT/HCPCS: 36415; 80061; 81001; 82043; 82306; 83036; 84153; 84443; 85027

== ENCOUNTER 2021-12-26 00:03 | Day surgery (SDC) | payer MEDICARE, OTHER, SELFPAY ==
[2021-12-06 12:14] VITALS: BMI 33.1
[2021-12-26 07:07] VITALS: BP 151/90; PULSE 67; RESP 19; TEMP 36.8; O2SAT 94
--- NOTE | 2021-12-26 07:18 | WPDANESEPPF ---
Anes - Initial Pre Proc Eval Procedure: Operation Date: 12/26/21 08:30 Proposed Procedures p Screening Colonoscopy - Demetrius Scherer MD Date/Time: 12/26/21 07:18 Surgeon: Demetrius Scherer MD Pre Op Diagnosis: hx of colon polyps Patient Data Age: 66 Gender: M Height: 1.85 m Weight: 108.3 kg Last Vital Signs Temp 36.8 C 12/26/21 07:07 Pulse 67 12/26/21 07:07 Resp 19 12/26/21 07:07 BP 151/90 H 12/26/21 07:07 Pulse Ox 94 12/26/21 07:07 O2 Del Method Room Air 12/26/21 07:07 Allergies Allergy/AdvReac Type Severity Reaction Status Date / Time No Known Allergies Allergy Verified 12/26/21 07:05 Home Medications Medication Instructions Recorded Confirmed Type aspirin 81 mg tablet,delayed 81 mg PO DAILY 06/26/19 12/06/21 History release cinnamon bark 500 mg capsule 1,000 mg PO DAILY 06/26/19 12/06/21 History (Cinnamon) multivitamin 1 tablet PO DAILY 06/26/19 12/06/21 History omega-3 fatty acids 500 mg capsule 1,000 mg PO DAILY 06/26/19 12/06/21 History tamsulosin 0.4 mg capsule 0.4 mg PO QAM #30 caps 06/25/21 12/06/21 Rx glipizide 5 mg tablet 5 mg PO BID #180 tabs 07/10/21 12/06/21 Rx blood sugar diagnostic (FreeStyle #300 ea 08/29/21 11/16/21 Rx Lite Strips) lancets 28 gauge (FreeStyle #100 ea 08/29/21 11/16/21 Rx Lancets) simvastatin 20 mg tablet 20 mg PO DAILY #90 tabs 09/29/21 12/06/21 Rx lisinopril 40 mg tablet 40 mg PO DAILY #90 tabs 11/16/21 12/06/21 Rx metformin 500 mg tablet See Rx Instructions .Route 11/16/21 12/06/21 Rx .COMPLEX #270 tabs sodium sul 1.479 gram-potas ch 12 tablet PO .COMPLEX #24 tabs 11/21/21 12/06/21 Rx 0.188 gram-magnes sul 0.225 gram tablet (Sutab) Vitamin D (with calcium) 5,000 units PO DAILY 12/06/21 12/06/21 History Patient hx anesthesia problems: none Family hx anesthesia problems: none Results Review: All pre-operative results and documents have been reviewed as part of the pre-operative evaluation. [facility] Past Medical History Medical History (Updated 11/16/21 @ 08:42 by Julio Preciado PA-C) Abdominal aortic aneurysm (AAA) Colitis Colonic polyp GI bleed History of amputation of great toe Obesity Pneumonia Sepsis Surgical History Surgical History History of surgical removal of ganglion cyst Status post removal of part of parathyroid Family History Family History Father Hypertension Family history of lung cancer Sibling Patient's sister is in good health Patient's brother is in good health Mother Breast cancer Social History Social History Social History: The patient stated that he used to smoked. The patient lives with his . The patient lives with his who is the durable power deputy prosecuting attorney for healthcare. 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 Code status full code Smoking packs per day: 2 Smoking cigarettes per day: 40.0 Years smoked: 25 Smoking pack-years: 50.00 Smoking status: Former smoker Tobacco type: cigarettes Second hand tobacco smoke exposure: No Alcohol intake: never Substance use: never Substance use type: does not use Living arrangements: with family Gender identity (if verbalized by the patient): Male Sexual Orientation (if Verbalized by the Patient): Straight or Heterosexual Spiritual care concerns: No Anes - Eval Final PreProcedure Day of Procedure 12/26/21 07:18 Patient weight: obese Heart: regular rate and rhythm Lungs: clear to auscultation Airway: Mallampati scale class III Neurological: alert and oriented Last oral intake: >/= 8 hours ASA classification: III Emergent: no Anesthetic plan: proceed Anesthesia type and monitoring: general GIVS and standard monitoring Results Review: All pre-operative results and
[2021-12-26] MEDS: LACTATED RINGERS 1,000 ML 150 ML IV CONT (07:21)
[2021-12-26 07:22] LABS: Glucose Point of Care 178 mg/dl (65-105)
--- NOTE | 2021-12-26 07:56 | PM.IMHP ---
H&P: HPI History of Present Illness Date/Time: 12/26/21 07:56 Chief Complaint: History of colon polyps. Narrative: This is a 66-year-old white male patient referred for colonoscopy. Patient has a prior history of colon polyps in 2015 a hyperplastic polyp was removed from the colon. In 2011 an adenomatous polyp was removed. Patient reports his current weight appetite bowel movements are normal. He denies abdominal pain. He has had no bleeding. Patient was hospitalized with diarrhea May of 2021 subsequently this has resolved. He presents today for screening colonoscopy. Review of Systems Review of Systems: Review of systems noncontributory. [facility] Past Medical History Medical History (Updated 12/26/21 @ 07:58 by Demetrius Scherer MD) Abdominal aortic aneurysm (AAA) Colitis Colonic polyp GI bleed History of amputation of great toe Obesity Pneumonia Sepsis Surgical History Surgical History History of surgical removal of ganglion cyst Status post removal of part of parathyroid Family History Family History Father Hypertension Family history of lung cancer Sibling Patient's sister is in good health Patient's brother is in good health Mother Breast cancer Social History Social History Social History: The patient stated that he used to smoked. The patient lives with his . The patient lives with his who is the durable power patent prosecution attorney for healthcare. 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 Code status full code Smoking packs per day: 2 Smoking cigarettes per day: 40.0 Years smoked: 25 Smoking pack-years: 50.00 Smoking status: Former smoker Tobacco type: cigarettes Second hand tobacco smoke exposure: No Alcohol intake: never Substance use: never Substance use type: does not use Living arrangements: with family Gender identity (if verbalized by the patient): Male Sexual Orientation (if Verbalized by the Patient): Straight or Heterosexual Spiritual care concerns: No Meds Home Medications and Allergies Home Medications Medication Instructions Recorded Confirmed Type aspirin 81 mg tablet,delayed 81 mg PO DAILY 06/26/19 12/06/21 History release cinnamon bark 500 mg capsule 1,000 mg PO DAILY 06/26/19 12/06/21 History (Cinnamon) multivitamin 1 tablet PO DAILY 06/26/19 12/06/21 History omega-3 fatty acids 500 mg capsule 1,000 mg PO DAILY 06/26/19 12/06/21 History tamsulosin 0.4 mg capsule 0.4 mg PO QAM #30 caps 06/25/21 12/06/21 Rx glipizide 5 mg tablet 5 mg PO BID #180 tabs 07/10/21 12/06/21 Rx blood sugar diagnostic (FreeStyle #300 ea 08/29/21 11/16/21 Rx Lite Strips) lancets 28 gauge (FreeStyle #100 ea 08/29/21 11/16/21 Rx Lancets) simvastatin 20 mg tablet 20 mg PO DAILY #90 tabs 09/29/21 12/06/21 Rx lisinopril 40 mg tablet 40 mg PO DAILY #90 tabs 11/16/21 12/06/21 Rx metformin 500 mg tablet See Rx Instructions .Route 11/16/21 12/06/21 Rx .COMPLEX #270 tabs sodium sul 1.479 gram-potas ch 12 tablet PO .COMPLEX #24 tabs 11/21/21 12/06/21 Rx 0.188 gram-magnes sul 0.225 gram tablet (Sutab) Vitamin D (with calcium) 5,000 units PO DAILY 12/06/21 12/06/21 History Allergies Allergy/AdvReac Type Severity Reaction Status Date / Time No Known Allergies Allergy Verified 12/26/21 07:05 Vital Signs Vital Signs - 24 hr 12/26/21 07:07 Temperature 98.3 F Pulse Rate 67 Respiratory Rate 19 Blood Pressure 151/90 H Pulse Oximetry 94 Oxygen Delivery Room Air Exam Narrative: Physical exam reveals patient be alert. Vital signs stable. HEENT exam is unremarkable. Patient is anicteric. Lungs are clear to auscultation and percussion. Heart is without murmur or extra sounds. Abdominal exam bowel sounds are
[2021-12-26 08:57] VITALS: BP 113/65; PULSE 59; RESP 19; O2SAT 95
[2021-12-26 09:07] VITALS: BP 137/88; PULSE 76; RESP 18; O2SAT 98
[2021-12-26 09:17] VITALS: BP 138/76; PULSE 72; RESP 18; O2SAT 99
== END 2021-12-26 09:23 | disposition home or self-care (01) ==
PROVIDERS: PCP Family Medicine; Visit Provider Internal Medicine Gastroenterology
PROC: 0DJD8ZZ Inspection of Lower Intestinal Tract, Via Natural or Artificial Opening Endoscopic (ICD-10-PCS; CPT 45378; principal; 2021-12-26 08:30)
DX: Z12.11 Encounter for screening for malignant neoplasm of colon (principal); D12.0 Benign neoplasm of cecum; D12.2 Benign neoplasm of ascending colon; K62.1 Rectal polyp; K57.30 Diverticulosis of large intestine without perforation or abscess without bleeding; K64.8 Other hemorrhoids; I71.4 Abdominal aortic aneurysm, without rupture; Z79.84 Long term (current) use of oral hypoglycemic drugs; Z79.82 Long term (current) use of aspirin; E66.9 Obesity, unspecified; Z68.31 Body mass index [BMI] 31.0-31.9, adult; Z87.891 Personal history of nicotine dependence
CPT/HCPCS: 45385; 82948; 88305; J2001; J2704; J7120

== ENCOUNTER 2022-04-11 07:58 | Outpatient (CLI) | payer MEDICARE, OTHER, SELFPAY ==
[2022-04-11 08:46] LABS: Alanine Aminotransferase 27 U/L (6-50); Albumin Level 4.6 g/dL (3.5-5.1); Alkaline Phosphatase 61 U/L (38-126); Anion Gap 12 mmol/L (8-16); Aspartate Amino Transferase 30 U/L (17-59); Bilirubin,Total 0.4 mg/dL (0.2-1.3); Blood Urea Nitrogen 29 mg/dL (9-20); Calcium 9.5 mg/dL (8.4-10.2); Carbon Dioxide 29 mmol/L (22-30); Chloride 99 mmol/L (98-107); Estimated Glomerular Filt Rate 40; Glucose 184 mg/dL (65-110); Potassium 4.8 mmol/L (3.4-5.0); Sodium 140 mmol/L (137-145)
[2022-04-11 09:21] LABS: Iron 89 ug/dL (49-181); Percent Iron Saturation 23 % (20-50)
[2022-04-11 09:56] LABS: Folic Acid > 20.0 ng/mL (2.76->20)
[2022-04-11 10:16] LABS: Hemoglobin A1C 7.7 % (<5.7)
== END 2022-04-11 07:59 | disposition home or self-care (01) ==
PROVIDERS: PCP Family Medicine; Visit Provider Physician Assistant
DX: E11.65 Type 2 diabetes mellitus with hyperglycemia (principal); I10 Essential (primary) hypertension; I71.4 Abdominal aortic aneurysm, without rupture; D64.9 Anemia, unspecified
CPT/HCPCS: 36415; 80053; 82607; 82728; 82746; 83036; 83540; 83550

== ENCOUNTER 2022-08-22 07:28 | Outpatient (CLI) | payer MEDICARE, OTHER, SELFPAY ==
[2022-08-22 10:04] LABS: Alanine Aminotransferase 28 U/L (6-50); Albumin Level 4.1 g/dL (3.5-5.1); Alkaline Phosphatase 57 U/L (38-126); Anion Gap 7 mmol/L (8-16); Aspartate Amino Transferase 28 U/L (17-59); Bilirubin,Total 0.5 mg/dL (0.2-1.3); Blood Urea Nitrogen 23 mg/dL (9-20); Calcium 8.9 mg/dL (8.4-10.2); Carbon Dioxide 28 mmol/L (22-30); Chloride 104 mmol/L (98-107); Estimated Glomerular Filt Rate 47; Glucose 110 mg/dL (65-110); Potassium 4.5 mmol/L (3.4-5.0); Sodium 139 mmol/L (137-145)
[2022-08-22 10:17] LABS: Hemoglobin A1C 7.8 % (<5.7)
== END 2022-08-22 07:29 | disposition home or self-care (01) ==
PROVIDERS: PCP Family Medicine; Visit Provider Physician Assistant
DX: I10 Essential (primary) hypertension (principal); Z79.4 Long term (current) use of insulin; E11.65 Type 2 diabetes mellitus with hyperglycemia
CPT/HCPCS: 36415; 80053; 83036

== ENCOUNTER 2022-12-24 07:23 | Outpatient (CLI) | payer MEDICARE, OTHER, SELFPAY ==
[2022-12-24 08:08] LABS: Hematocrit 43.4 % (42.0-52.0); Hemoglobin 14.3 g/dL (14.0-18.0); Mean Corpuscular HGB Conc 32.9 g/dl (32-36); Mean Corpuscular Hemoglobin 29.1 pg (26-34); Mean Corpuscular Volume 88.4 fl (80-100); Mean Platelet Volume 9.9 fl (7.4-10.4); Platelet Count Result 185 k/mm3 (150-375); Red Blood Count 4.91 M/mm3 (4.6-6.20); Red Cell Distribution Width 12.9 % (11.5-14.5); White Blood Count 7.5 K/mm3 (4.5-10.0)
[2022-12-24 08:15] LABS: Appearance Urine Clear (Clear); Bacteria Urine None Seen /hpf; Bilirubin Urine Negative (Negative); Blood Urine Negative (Negative); Color Urine Yellow (Yellow); Glucose Urine UA Negative (Negative); Ketones Urine Negative (Negative); Leukocyte Esterase Ur Negative LEU/UL (NEGATIVE); Nitrate Urine Negative (Negative); Non Pathogenic Casts 0-2; Protein Urine 2+ mg/dL (Negative); RBC Urine 0-2 /hpf (0-2); Specific Grav Ur 1.013 (1.001-1.035); Squamous Epithelial Cell Urine None seen /hpf (Few); Urobilinogen Urine 0.2 mg/dL (<2.0); WBC Urine 0-5 /hpf (0-3); pH Urine 5.5 (5.0-9.0)
[2022-12-24 08:18] LABS: Alanine Aminotransferase 28 U/L (6-50); Albumin Level 4.4 g/dL (3.5-5.1); Alkaline Phosphatase 51 U/L (38-126); Anion Gap 7 mmol/L (8-16); Aspartate Amino Transferase 29 U/L (17-59); Bilirubin,Total 0.5 mg/dL (0.2-1.3); Blood Urea Nitrogen 24 mg/dL (9-20); Calcium 8.7 mg/dL (8.4-10.2); Carbon Dioxide 29 mmol/L (22-30); Chloride 103 mmol/L (98-107); Cholesterol 142 mg/dL (0-200); Estimated Glomerular Filt Rate 43; Glucose 138 mg/dL (65-110); HDL Direct 26 mg/dL; Potassium 4.6 mmol/L (3.4-5.0); Sodium 139 mmol/L (137-145); Triglycerides 212 mg/dL (<150)
[2022-12-24 08:24] LABS: Add Urine Microscopic? YES
[2022-12-24 08:29] LABS: LDL Cholesterol Direct 74 mg/dL
[2022-12-24 08:54] LABS: Creatinine Urine 76.7 mg/dL
[2022-12-24 09:18] LABS: Vitamin D 25 Hydroxy 68.9 ng/mL
[2022-12-24 10:58] LABS: Microalbumin Urine Random 553.8 mg/L (0-16.7)
== END 2022-12-24 07:24 | disposition home or self-care (01) ==
PROVIDERS: PCP Family Medicine; Visit Provider Physician Assistant
DX: E11.65 Type 2 diabetes mellitus with hyperglycemia (principal); E55.9 Vitamin D deficiency, unspecified; I10 Essential (primary) hypertension; E78.2 Mixed hyperlipidemia; E66.9 Obesity, unspecified; D64.9 Anemia, unspecified
CPT/HCPCS: 36415; 80053; 80061; 81001; 82043; 82306; 83036; 84443; 85027

== ENCOUNTER 2023-01-22 12:41 | Outpatient (NON) | payer MEDICARE, OTHER, SELFPAY | END 2023-01-22 12:42 | disposition home or self-care (01) | PROVIDERS: PCP Family Medicine; Visit Provider Nurse Practitioner | DX: C44.02 Squamous cell carcinoma of skin of lip (principal) | CPT/HCPCS: 88305 ==

== ENCOUNTER 2023-02-11 15:00 | Outpatient (NON) | payer MEDICARE, OTHER, SELFPAY | END 2023-02-11 15:01 | disposition home or self-care (01) | LOC: ANHLAB 15:00 | PROVIDERS: PCP Family Medicine; Visit Provider Nurse Practitioner | DX: C44.320 Squamous cell carcinoma of skin of unspecified parts of face (principal) | CPT/HCPCS: 88305; 88331 ==

== ENCOUNTER 2023-04-15 07:15 | Outpatient (CLI) | payer MEDICARE, OTHER, SELFPAY ==
[2023-04-15 08:20] LABS: Alanine Aminotransferase 33 U/L (6-50); Albumin Level 4.3 g/dL (3.5-5.1); Alkaline Phosphatase 49 U/L (38-126); Anion Gap 10 mmol/L (8-16); Aspartate Amino Transferase 44 U/L (17-59); Bilirubin,Total 0.4 mg/dL (0.2-1.3); Blood Urea Nitrogen 32 mg/dL (9-20); Calcium 8.9 mg/dL (8.4-10.2); Carbon Dioxide 26 mmol/L (22-30); Chloride 103 mmol/L (98-107); Estimated Glomerular Filt Rate 43; Glucose 104 mg/dL (65-110); Potassium 4.1 mmol/L (3.4-5.0); Sodium 139 mmol/L (137-145)
[2023-04-15 08:24] LABS: Hemoglobin A1C 6.7 % (<5.7)
== END 2023-04-15 07:16 | disposition home or self-care (01) ==
LOC: ANHLAB 07:17
PROVIDERS: PCP Family Medicine; Visit Provider Physician Assistant
DX: E11.65 Type 2 diabetes mellitus with hyperglycemia (principal); I10 Essential (primary) hypertension
CPT/HCPCS: 36415; 80053; 83036

== ENCOUNTER 2023-08-12 08:48 | Outpatient (CLI) | payer MEDICARE, OTHER, SELFPAY ==
[2023-08-12 09:40] LABS: Alanine Aminotransferase 37 U/L (6-50); Albumin Level 4.5 g/dL (3.5-5.1); Alkaline Phosphatase 60 U/L (38-126); Anion Gap 8 mmol/L (8-16); Aspartate Amino Transferase 36 U/L (17-59); Bilirubin,Total 0.5 mg/dL (0.2-1.3); Blood Urea Nitrogen 26 mg/dL (9-20); Calcium 9.5 mg/dL (8.4-10.2); Carbon Dioxide 29 mmol/L (22-30); Chloride 100 mmol/L (98-107); Estimated Glomerular Filt Rate 47; Glucose 100 mg/dL (65-110); Potassium 4.7 mmol/L (3.4-5.0); Sodium 137 mmol/L (137-145)
[2023-08-12 10:55] LABS: Hemoglobin A1C 7.4 % (<5.7)
== END 2023-08-12 08:49 | disposition home or self-care (01) ==
LOC: ANHLAB 08:50
PROVIDERS: PCP Family Medicine; Visit Provider Physician Assistant
DX: E11.65 Type 2 diabetes mellitus with hyperglycemia (principal); I10 Essential (primary) hypertension; N18.30 Chronic kidney disease, stage 3 unspecified
CPT/HCPCS: 36415; 80053; 83036

== ENCOUNTER 2023-12-30 07:03 | Outpatient (CLI) | payer MEDICARE, OTHER, SELFPAY ==
[2023-12-30 07:32] LABS: Hematocrit 45.3 % (42.0-52.0); Hemoglobin 14.8 g/dL (14.0-18.0); Mean Corpuscular HGB Conc 32.7 g/dl (32-36); Mean Corpuscular Hemoglobin 29.2 pg (26-34); Mean Corpuscular Volume 89.5 fl (80-100); Platelet Count Result 184 k/mm3 (150-375); Red Blood Count 5.06 M/mm3 (4.6-6.20); Red Cell Distribution Width 12.9 % (11.5-14.5); White Blood Count 7.4 K/mm3 (4.5-10.0)
[2023-12-30 07:45] LABS: Alanine Aminotransferase 26 U/L (6-50); Albumin Level 4.4 g/dL (3.5-5.1); Alkaline Phosphatase 54 U/L (38-126); Anion Gap 9 mmol/L (4-12); Aspartate Amino Transferase 30 U/L (17-59); Bilirubin,Total 0.6 mg/dL (0.2-1.3); Blood Urea Nitrogen 27 mg/dL (9-20); Calcium 9.2 mg/dL (8.4-10.2); Carbon Dioxide 24 mmol/L (22-30); Chloride 107 mmol/L (98-107); Cholesterol 136 mg/dL (0-200); Estimated Glomerular Filt Rate 50; Glucose 140 mg/dL (65-110); HDL Direct 27 mg/dL; Potassium 4.6 mmol/L (3.4-5.0); Sodium 140 mmol/L (137-145); Triglycerides 215 mg/dL (<150)
[2023-12-30 07:56] LABS: LDL Cholesterol Direct 79 mg/dL
[2023-12-30 08:00] LABS: Appearance Urine Clear (Clear); Bacteria Urine None Seen /hpf; Bilirubin Urine Negative (Negative); Blood Urine Negative (Negative); Color Urine Yellow (Yellow); Glucose Urine UA Negative (Negative); Ketones Urine Negative (Negative); Leukocyte Esterase Ur Negative LEU/UL (Negative); Nitrate Urine Negative (Negative); Non Pathogenic Casts 0-2; Protein Urine 2+ mg/dL (Negative); RBC Urine 0-2 /hpf (0-2); Specific Grav Ur 1.017 (1.001-1.035); Squamous Epithelial Cell Urine None Seen /hpf (Few); Urobilinogen Urine 0.2 mg/dL (<2.0); WBC Urine 0-5 /hpf (0-3); pH Urine 5.5 (5.0-9.0)
[2023-12-30 08:05] LABS: Add Urine Microscopic? YES
[2023-12-30 08:06] LABS: Hemoglobin A1C 7.2 % (<5.7)
[2023-12-30 08:09] LABS: Vitamin D 25 Hydroxy 92.9 ng/mL
[2023-12-30 10:14] LABS: Creatinine Urine 95.1 mg/dL
[2023-12-30 11:31] LABS: Microalbumin Urine Random 623.9 mg/L (0-16.7)
== END 2023-12-30 07:04 | disposition home or self-care (01) ==
LOC: ANHLAB 07:07
PROVIDERS: PCP Family Medicine; Visit Provider Physician Assistant
DX: D64.9 Anemia, unspecified (principal); E11.65 Type 2 diabetes mellitus with hyperglycemia; E78.2 Mixed hyperlipidemia; I10 Essential (primary) hypertension; E66.9 Obesity, unspecified; E55.9 Vitamin D deficiency, unspecified; I71.40 Abdominal aortic aneurysm, without rupture, unspecified
CPT/HCPCS: 36415; 80053; 80061; 81001; 82043; 82306; 83036; 84443; 85027

== ENCOUNTER 2024-01-31 12:54 | Outpatient (CLI) | payer MEDICARE, OTHER, SELFPAY ==
--- NOTE | ~2024-01-31 | CT_ITS ---
EXAMINATION: CT diagnostic chest wo con DATE: 01/31/2024 13:11 INDICATION: R91.1 - Solitary pulmonary nodule TECHNIQUE: Computed tomography (CT) of the chest was performed without intravenous contrast. Addition al 3D reconstructions utilizing coronal maximum intensity projection (MIP) were performed. Automated exposure control and iterative reconstruction technique were employed. The dose-length product was 28 9.20 mGy-cm. COMPARISON: 07/20/2021 FINDINGS: Mild emphysema the apices of the lungs. There is an 11 x 10 mm spiculated nodule with and minimal yasmeen rounding groundglass opacity in the posterior lingula along the major fissure which is entirely new s senthil the prior study. Calcified right lower lobe nodule and calcified right hilar and mediastinal lym ph nodes consistent with old granulomatous disease. Mild dependent basilar atelectasis in bilateral l ower lobes. Very small linear band of discoid atelectasis in the posterior segment of the right upper lobe along the major fissure. A couple unchanged thin elongated likely intrafissural lymph nodes sandro ng the right major fissure near its junction of the minor fissure. No pleural effusion. Heart size is normal. Prominent atherosclerotic calcification along the left anterior descending coronary artery. No pericardial effusion. Thoracic aorta is normal in caliber. No pathologically enlarged thoracic lym phadenopathy. 4 mm coarse calcification at the right thyroid lobe. A few hepatic and splenic calcific lesions consistent with old granulomatous disease. Moderate thoracic spondylosis.. IMPRESSION: 1. Indeterminant 11 x 10 mm spiculated nodule in the posterior lingula which is entirely new since th e study from 07/20/2021. Recommend correlation with any intervening outside imaging. If long-term stabi lity, decrease in size or rapid growth indicative of infection cannot be confirmed would recommend pe rcutaneous biopsy. Given the location along the fissure, percutaneous biopsy would however carry a si gnificant risk of complication by pneumothorax. Reviewed, dictated and finalized at location A. IMPRESSION: 1. Indeterminant 11 x 10 mm spiculated nodule in the posterior lingula which is entirely new since the study from 07/20/2021. Recommend correlation with any int ervening outside imaging. If long-term stability, decrease in size or rapid dedra wth indicative of infection cannot be confirmed would recommend percutaneous bi opsy. Given the location along the fissure, percutaneous biopsy would however c arry a significant risk of complication by pneumothorax.
== END 2024-01-31 12:55 | disposition home or self-care (01) ==
LOC: ANHIMG 12:56
PROVIDERS: PCP Family Medicine; Visit Provider Physician Assistant
DX: R91.1 Solitary pulmonary nodule (principal); Z87.891 Personal history of nicotine dependence
CPT/HCPCS: 71250

== ENCOUNTER 2024-03-31 07:23 | Outpatient (CLI) | payer MEDICARE, OTHER, SELFPAY ==
--- NOTE | ~2024-03-31 | PE_ITS ---
EXAMINATION: PET skull to mid thigh DATE: 03/31/2024 10:05 INDICATION: Lung nodule/cancer evaluation TECHNIQUE: Blood glucose level was 105 mg/dL. 10.723 mCi of 18-fluorodeoxyglucose (18-FDG) was admini stered i.v. Low dose computed tomography (CT) images were acquired from the base of the brain to the proximal thighs for attenuation correction and anatomic localization. Positron emission tomography (P ET) images were acquired in the same distribution beginning 60 minutes after injection. Images includ ing fused PET/CT images were reconstructed in axial, coronal, and sagittal planes. Automated exposure control technique was employed. The dose-length product was 1302.82mGy-cm. COMPARISON: Chest CT dated 01/31/2024 FINDINGS: Head/neck: There is symmetric increased activity in the oral cavity, palatine and lingual tonsils, submandibular glands, laryngeal muscles and ocular muscles without CT correlate, likely physiologic. No pathologic ally enlarged cervical lymphadenopathy or suspicious foci of increased FDG uptake in the visualized h ead or neck. Chest: Calcified right lower lobe nodule along with calcified right hilar and mediastinal lymph nodes consis tent with old granulomatous disease. The posterior lingular nodule of concern has resolved consistent with an infectious/inflammatory etiology. No suspicious pulmonary nodules, pneumonia, pulmonary cordelia a or pleural effusion. Cardiomegaly. Atherosclerotic coronary artery calcification. No pericardial ef fusion. Thoracic aorta is normal in caliber. No pathologically enlarged or FDG avid thoracic lymphade nopathy. Abdomen/pelvis/proximal thighs: Physiologic renal accumulation and excretion of FDG activity in the kidneys, bladder and along portio ns of ureters. Normal degree and heterogenous pattern of increased uptake throughout the liver withou t radiologic correlate or dominant FDG avid lesion. The gallbladder, pancreas, spleen and bilateral a drenal glands are normal. Mild uptake scattered throughout the bowels without radiologic correlate, a lso likely physiologic. Moderate scattered colonic diverticulosis without adjacent from trace strandi ng to suggest diverticulitis. Appendix is normal. Fusiform infrarenal abdominal aortic aneurysm measu ring up to 3.8 cm in maximal diameter, increased from reported 3.4 cm diameter on study dated 06/16/20 21, images which are not available for comparison at this time. No other abnormal foci of increased F DG uptake or pathologically enlarged lymphadenopathy in the abdomen, pelvis or proximal thighs. Musculoskeletal: No suspicious lytic, blastic or FDG avid bone lesions.. IMPRESSION: 1. The prior lingular nodule has resolved suggesting an infectious/inflammatory etiology. No FDG avid lesions concerning for malignancy identified. 2. 3.8 cm fusiform infrarenal abdominal aortic aneurysm. Reviewed, dictated and finalized at location B.
[2024-03-31 07:58] LABS: Glucose Point of Care 105 mg/dl (65-105)
== END 2024-03-31 07:24 | disposition home or self-care (01) ==
LOC: ANHIMG 07:24
PROVIDERS: PCP Family Medicine; Visit Provider Internal Medicine Critical Care Medicine
DX: I71.40 Abdominal aortic aneurysm, without rupture, unspecified (principal); E11.9 Type 2 diabetes mellitus without complications; Z79.4 Long term (current) use of insulin; Z79.84 Long term (current) use of oral hypoglycemic drugs; R91.1 Solitary pulmonary nodule
CPT/HCPCS: 78815; A9552

== ENCOUNTER 2024-04-16 08:07 | Outpatient (CLI) | payer MEDICARE, OTHER, SELFPAY ==
--- NOTE | 2024-04-16 10:43 | WPDSIXMINUTE ---
Six Minute Walk Procedure Procedure Performed Pulmonary Stress Test (6 min walk) Six Minute Walk Six Minute Walk: This is a 6 minute walk test. The test was performed and interpreted in accordance with the 2014 ERS/ATS task force guidelines. Findings: The patient's resting room air oxygen saturation measured by pulse oximetry was 95%, the heart rate was 58 bpm, and the modified Stella dyspnea score was 0.5. Patient ambulated for 366 meters and oxygen saturation remained 92 to 93%. At the end of the study the heart rate was 79 bpm and the modified Stella dyspnea score was 0.5. The patient did not qualify for supplemental oxygen at rest or with ambulation. There are no prior studies for comparison.
--- NOTE | 2024-04-16 10:45 | WPDPFTINT ---
PFT Procedure Performed PFT Procedure Performed Spirometry with Pre/Post Bronchodilator Plethysmography (Lung Vol) Diffusing Cap (DLCO) Flow Vol Loop PFT Interpretation This is a pulmonary function test with pre and post-bronchodilator spirometry, plethysmography and diffusing capacity. The test was performed and results interpreted in accordance with the 2019 and 2005 ATS/ERS Task Force guidelines respectively using the Global Lung Function Initiative-2012 reference equations. Patient demonstrated good effort and cooperation. Reproducibility criteria were met. The quality of the pre bronchodilator spirometry maneuver was Grade B and post bronchodilator spirometry maneuver was Grade A. Findings: Spirometry: The contour the inspiratory and expiratory flow tracing is normal. The pre bronchodilator FVC is 4.15 L, 88% predicted. The pre bronchodilator FEV1 is 2.96 L, 83% predicted. The pre bronchodilator FEV1: FVC ratio 71%. The post bronchodilator FVC is 4.23 L, representing a 2% increase. The post bronchodilator FEV1 is 3.06 L, representing a 3% increase. The post bronchodilator FEV1: FVC ratio 72%. Plethysmography: The total lung capacity is 8.52 L, 112% predicted. The functional residual capacity is 3.25 L, 80% predicted. The residual volume is 3.23 L, 125% predicted. Diffusing capacity: The diffusing capacity unadjusted for hemoglobin and carboxyhemoglobin is 26.1, 95% predicted. The diffusing capacity adjusted for alveolar volume is 3.84, 101% predicted. Impression: The spirometry is normal without evidence of an obstructive abnormality. There is no significant improvement after inhaling a single dose of albuterol. The lung volumes are normal. The diffusing capacity is normal. There are no prior studies for comparison
== END 2024-04-16 08:08 | disposition home or self-care (01) ==
LOC: ANHPFT 08:11
PROVIDERS: PCP Family Medicine; Visit Provider Internal Medicine Critical Care Medicine
DX: R91.1 Solitary pulmonary nodule (principal); Z87.891 Personal history of nicotine dependence
CPT/HCPCS: 94060; 94726; 94729

== ENCOUNTER 2024-04-23 07:32 | Outpatient (CLI) | payer MEDICARE, OTHER, SELFPAY ==
[2024-04-23 08:29] LABS: Alanine Aminotransferase 40 U/L (6-50); Albumin Level 4.4 g/dL (3.5-5.1); Alkaline Phosphatase 53 U/L (38-126); Anion Gap 8 mmol/L (4-12); Aspartate Amino Transferase 40 U/L (17-59); Bilirubin,Total 0.7 mg/dL (0.2-1.3); Blood Urea Nitrogen 29 mg/dL (9-20); Calcium 9.2 mg/dL (8.4-10.2); Carbon Dioxide 31 mmol/L (22-30); Chloride 100 mmol/L (98-107); Estimated Glomerular Filt Rate 40; Glucose 154 mg/dL (65-110); Potassium 4.6 mmol/L (3.4-5.0); Sodium 139 mmol/L (137-145)
[2024-04-23 10:23] LABS: Hemoglobin A1C 6.9 % (<5.7)
== END 2024-04-23 07:33 | disposition home or self-care (01) ==
PROVIDERS: PCP Family Medicine; Visit Provider Physician Assistant
DX: E11.65 Type 2 diabetes mellitus with hyperglycemia (principal); I12.9 Hypertensive chronic kidney disease with stage 1 through stage 4 chronic kidney disease, or unspecified chronic kidney disease; N18.30 Chronic kidney disease, stage 3 unspecified
CPT/HCPCS: 36415; 80053; 83036

== ENCOUNTER 2025-01-04 07:07 | Outpatient (CLI) | payer MEDICARE, OTHER, SELFPAY ==
[2025-01-04 08:01] LABS: Basophils Absolute Auto 0.1 K/mm3 (0.0-0.1); Basophils Percent Auto 0.7 % (0.2-1.2); Eosinophils Absolute Auto 0.4 K/mm3 (0-0.3); Eosinophils Percent Auto 4.6 % (0-4.4); Hematocrit 47.5 % (42.0-52.0); Hemoglobin 15.6 g/dL (14.0-18.0); Immature Granulocyte Absolute 0.02 K/mm3 (0.00-0.031); Immature Granulocyte Percent A 0.2 % (0-0.5); Lymphocytes Percent Auto 17.1 % (18.3-44.2); Mean Corpuscular HGB Conc 32.8 g/dl (32-36); Mean Corpuscular Hemoglobin 28.7 pg (26-34); Mean Corpuscular Volume 87.5 fl (80-100); Mean Platelet Volume 10.2 fl (7.4-10.4); Monocytes Absolute Auto 0.8 K/mm3 (0.1-0.6); Monocytes Percent Auto 9.3 % (2.6-8.5); Neutrophils Absolute Auto 5.6 K/mm3 (1.3-6.7); Neutrophils Percent Auto 68.1 % (45.5-73.1); Platelet Count Result 207 k/mm3 (150-375); Red Blood Count 5.43 M/mm3 (4.6-6.20); Red Cell Distribution Width 13.2 % (11.5-14.5); White Blood Count 8.2 K/mm3 (4.5-10.0)
[2025-01-04 08:11] LABS: Alanine Aminotransferase 23 U/L (6-50); Albumin Level 4.4 g/dL (3.5-5.1); Alkaline Phosphatase 55 U/L (38-126); Anion Gap 12 mmol/L (4-12); Aspartate Amino Transferase 33 U/L (17-59); Bilirubin,Total 0.6 mg/dL (0.2-1.3); Blood Urea Nitrogen 30 mg/dL (9-20); Calcium 9.3 mg/dL (8.4-10.2); Carbon Dioxide 20 mmol/L (22-30); Chloride 106 mmol/L (98-107); Cholesterol 138 mg/dL (0-200); Estimated Glomerular Filt Rate 42; Glucose 150 mg/dL (65-110); HDL Direct 24 mg/dL; Potassium 4.8 mmol/L (3.4-5.0); Sodium 138 mmol/L (137-145); Total Protein 7.9 g/dL (6.3-8.2); Triglycerides 199 mg/dL (<150)
[2025-01-04 08:22] LABS: LDL Cholesterol Direct 65 mg/dL
[2025-01-04 08:27] LABS: Hemoglobin A1C 6.9 % (<5.7)
== END 2025-01-04 07:08 | disposition home or self-care (01) ==
PROVIDERS: PCP Family Medicine
DX: I10 Essential (primary) hypertension (principal); E78.2 Mixed hyperlipidemia; E11.65 Type 2 diabetes mellitus with hyperglycemia
CPT/HCPCS: 36415; 80053; 80061; 83036; 84443; 85025

== ENCOUNTER 2025-04-09 00:13 | Day surgery (SDC) | payer MEDICARE, OTHER, SELFPAY ==
[2025-03-26 09:05] VITALS: BMI 31.2
[2025-04-09 06:19] VITALS: BP 119/77; PULSE 70; RESP 18; TEMP 36.5; O2SAT 93
[2025-04-09] MEDS: LACTATED RINGERS 1,000 ML 150 ML IV CONT (06:31)
--- NOTE | 2025-04-09 07:13 | WPDANESEPPF ---
Anes - Initial Pre Proc Eval Procedure: Operation Date: 04/09/25 07:30 Proposed Procedures p Screening Colonoscopy - Andres Marc MD Date/Time: 04/09/25 07:13 Surgeon: Andres Marc MD Pre Op Diagnosis: Personal history of colon polyps, unspecified Patient Data Age: 69 Gender: M Height: 1.83 m Weight: 110.4 kg Last Vital Signs Temp 36.5 C 04/09/25 06:19 Pulse 70 04/09/25 06:19 Resp 18 04/09/25 06:19 BP 119/77 04/09/25 06:19 Pulse Ox 93 04/09/25 06:19 O2 Del Method Room Air 04/09/25 06:19 Allergies Allergy/AdvReac Type Severity Reaction Status Date / Time No Known Allergies Allergy Verified 04/09/25 06:16 Home Medications ?Medication ?Instructions ?Recorded ?Confirmed ?Type aspirin 81 mg tablet,delayed 81 mg PO DAILY 06/26/19 04/09/25 History release cinnamon bark 500 mg capsule 1,000 mg PO DAILY 06/26/19 04/09/25 History (Cinnamon) multivitamin 1 tablet PO DAILY 06/26/19 04/09/25 History omega-3 fatty acids 500 mg capsule 1,000 mg PO DAILY 06/26/19 04/09/25 History Vitamin D (with calcium) 5,000 units PO DAILY 12/06/21 04/09/25 History glucosamine-chondroitin 500 mg-400 1 tablet PO DAILY #90 tabs 01/06/24 04/09/25 Rx mg tablet amlodipine 5 mg tablet 5 mg PO DAILY #90 tabs 07/17/24 04/09/25 Rx blood sugar diagnostic (FreeStyle #300 ea 07/17/24 01/11/25 Rx Lite Strips) glipizide 5 mg tablet 5 mg PO BID #180 tabs 07/17/24 04/09/25 Rx Held on 08/05/24. Instructions: .Provider Order lisinopril 40 mg tablet 40 mg PO DAILY #90 tabs 07/17/24 04/09/25 Rx metformin 500 mg tablet See Rx Instructions .Route 07/17/24 04/09/25 Rx .COMPLEX #270 tabs tamsulosin 0.4 mg capsule 0.4 mg PO QAM #90 caps 07/27/24 04/09/25 Rx lancets 28 gauge (FreeStyle #100 ea 08/03/24 01/11/25 Rx Lancets) pen needle, diabetic 29 gauge x #100 ea 08/03/24 01/11/25 Rx 1/2 (BD Ultra-Fine Original Pen Needle) insulin degludec 200 unit/mL (3 20 unit (0.1 mL) subcut QHS #9 mL 11/23/24 04/09/25 Rx mL) subcutaneous pen (Tresiba FlexTouch U-200 insulin) simvastatin 20 mg tablet See Rx Instructions .Route 12/31/24 04/09/25 Rx .COMPLEX #90 tabs dapagliflozin propanediol 10 mg 10 mg PO DAILY #90 tabs 01/11/25 04/09/25 Rx tablet (Farxiga) latanoprost 0.005 % eye drops 1 drp EACH EYE DAILY 01/11/25 04/09/25 History tadalafil 5 mg tablet 5 mg PO DAILY unk 01/11/25 04/09/25 History Laboratory Tests 04/09/25 06:29 POC Capillary Glucose 176 H mg/dl (65-105) Patient hx anesthesia problems: none Family hx anesthesia problems: none Results Review: All pre-operative results and documents have been reviewed as part of the pre-operative evaluation. [facility] Past Medical History Medical History Lung nodule, solitary History of tobacco abuse GI bleed Sepsis Colitis Pneumonia Obesity Abdominal aortic aneurysm (AAA) Colonic polyp Surgical History Surgical History History of amputation of great toe History of surgical removal of ganglion cyst Status post removal of part of parathyroid Family History Family History Father Hypertension Family history of lung cancer Sibling Patient's sister is in good health Patient's brother is in good health Mother Breast cancer Social History Social History Social History: The patient stated that he used to smoked. The patient lives with his . The patient lives with his who is the durable power staff attorney for healthcare. 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 Code status full code Smoking packs per day: 0 Smoking cigarettes per day: 0.0 Years smoked: 25 Smoking pack-years: 0.00 Smoking status: Former smoker Tobacco type: cigarettes Second hand tobacco smoke exposure: No Alcohol intake: never Substance use: never Substance use type: does not use Living arrangements: with family Occupation/Education: retired Gender identity (if verbalized by the patient): Male Sexual Orientation (if Verbalized by the Patient): Straight or Heterosexual Spiritual care concerns: No Anes - Eval Final PreProcedure Day of Procedure 04/09/25 07:13 Patient weight: obese Heart: regular rate and rhythm Lungs: decreased breath sounds Airway: Mallampati scale class III Neurological: alert and oriented Last oral intake: >/= 8 hours ASA classification: IV Emergent: no Anesthetic plan: proceed Anesthesia type and monitoring: general GIVS and standard monitoring Results Review: All pre-operative results and documents have been reviewed as part of the pre-operative evaluation. Informed Consent: The patient's anesthetic plan and its attendant risks and benefits were discussed with the patient/family/POA. Questions were solicited and answers provided to the satisfaction of the patient/family/POA.
--- NOTE | 2025-04-09 07:32 | PM.HPGS ---
History of Present Illness History of Present Illness Consent: Risks, benefits, and alternatives have been discussed and questions answered. Patient agrees to proceed with procedure. Chief complaint: Personal history of colon polyps, unspecified Narrative: Amaury Denton is a 69 year old male with colon polyps in 2021 Review of Systems Review of Systems: All systems reviewed & are unremarkable except as noted in HPI and below PMFSH Past Medical History Medical History Lung nodule, solitary History of tobacco abuse GI bleed Sepsis Colitis Pneumonia Obesity Abdominal aortic aneurysm (AAA) Colonic polyp Surgical History Surgical History History of amputation of great toe History of surgical removal of ganglion cyst Status post removal of part of parathyroid Family History Family History Father Hypertension Family history of lung cancer Sibling Patient's sister is in good health Patient's brother is in good health Mother Breast cancer Social History Social History Social History: The patient stated that he used to smoked. The patient lives with his . The patient lives with his who is the durable power document review attorney for healthcare. 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 Code status full code Smoking packs per day: 0 Smoking cigarettes per day: 0.0 Years smoked: 25 Smoking pack-years: 0.00 Smoking status: Former smoker Tobacco type: cigarettes Second hand tobacco smoke exposure: No Alcohol intake: never Substance use: never Substance use type: does not use Living arrangements: with family Occupation/Education: retired Gender identity (if verbalized by the patient): Male Sexual Orientation (if Verbalized by the Patient): Straight or Heterosexual Spiritual care concerns: No Meds Home Medications and Allergies Home Medications ?Medication ?Instructions ?Recorded ?Confirmed ?Type aspirin 81 mg tablet,delayed 81 mg PO DAILY 06/26/19 04/09/25 History release cinnamon bark 500 mg capsule 1,000 mg PO DAILY 06/26/19 04/09/25 History (Cinnamon) multivitamin 1 tablet PO DAILY 06/26/19 04/09/25 History omega-3 fatty acids 500 mg capsule 1,000 mg PO DAILY 06/26/19 04/09/25 History Vitamin D (with calcium) 5,000 units PO DAILY 12/06/21 04/09/25 History glucosamine-chondroitin 500 mg-400 1 tablet PO DAILY #90 tabs 01/06/24 04/09/25 Rx mg tablet amlodipine 5 mg tablet 5 mg PO DAILY #90 tabs 07/17/24 04/09/25 Rx blood sugar diagnostic (FreeStyle #300 ea 07/17/24 01/11/25 Rx Lite Strips) glipizide 5 mg tablet 5 mg PO BID #180 tabs 07/17/24 04/09/25 Rx Held on 08/05/24. Instructions: .Provider Order lisinopril 40 mg tablet 40 mg PO DAILY #90 tabs 07/17/24 04/09/25 Rx metformin 500 mg tablet See Rx Instructions .Route 07/17/24 04/09/25 Rx .COMPLEX #270 tabs tamsulosin 0.4 mg capsule 0.4 mg PO QAM #90 caps 07/27/24 04/09/25 Rx lancets 28 gauge (FreeStyle #100 ea 08/03/24 01/11/25 Rx Lancets) pen needle, diabetic 29 gauge x #100 ea 08/03/24 01/11/25 Rx 1/2 (BD Ultra-Fine Original Pen Needle) insulin degludec 200 unit/mL (3 20 unit (0.1 mL) subcut QHS #9 mL 11/23/24 04/09/25 Rx mL) subcutaneous pen (Tresiba FlexTouch U-200 insulin) simvastatin 20 mg tablet See Rx Instructions .Route 12/31/24 04/09/25 Rx .COMPLEX #90 tabs dapagliflozin propanediol 10 mg 10 mg PO DAILY #90 tabs 01/11/25 04/09/25 Rx tablet (Farxiga) latanoprost 0.005 % eye drops 1 drp EACH EYE DAILY 01/11/25 04/09/25 History tadalafil 5 mg tablet 5 mg PO DAILY unk 01/11/25 04/09/25 History Allergies Allergy/AdvReac Type Severity Reaction Status Date / Time No Known Allergies Allergy Verified 04/09/25 06:16 Vital Signs Vital Signs - 24 hr 09/26/25 06:19 Temperature 97.7 F Pulse Rate 70 Respiratory Rate 18 Blood Pressure 119/77 Pulse Oximetry 93 Oxygen Delivery Room Air Exam Const: General: comfortable and no acute distress HENMT: Face/Nose/Sinus: Normal nares present Eyes: General: appearance normal, both eyes and all related structures Neck: Neck: no JVD Resp: Auscultation: clear to auscultation bilaterally Cardio: Rate: regular rate Rhythm: regular rhythm GI: Inspection: non-distended GI Palp: Yes Soft to palpation Skin: General skin exam: normal color Neuro: Speech: normal speech Extrem: General: normal to inspection Psych: Mental Status: mental status grossly normal Assessment and Plan Assessment and plan (1) History of colon polyps: Code(s): Z86.010 - Personal history of colon polyps Status: Acute Assessment and Plan: colonoscopy
--- NOTE | 2025-04-09 07:51 | SUR.OPER ---
NOTIFIED POLYP NOT RETRIEVED
[2025-04-09 07:52] VITALS: BP 87/67; PULSE 63; RESP 17; O2SAT 95
[2025-04-09 08:02] VITALS: BP 96/57; PULSE 64; RESP 20; O2SAT 93
[2025-04-09 08:12] VITALS: BP 107/61; PULSE 70; RESP 20; O2SAT 93
== END 2025-04-09 08:23 | disposition home or self-care (01) ==
PROVIDERS: PCP Family Medicine; Referring Provider Family Medicine; Visit Provider Internal Medicine Gastroenterology
PROC: 0DJD8ZZ Inspection of Lower Intestinal Tract, Via Natural or Artificial Opening Endoscopic (ICD-10-PCS; CPT 45378; principal; 2025-04-09 07:30)
DX: Z12.11 Encounter for screening for malignant neoplasm of colon (principal); K63.5 Polyp of colon; K64.8 Other hemorrhoids; K57.30 Diverticulosis of large intestine without perforation or abscess without bleeding; E66.9 Obesity, unspecified; Z68.33 Body mass index [BMI] 33.0-33.9, adult; Z79.82 Long term (current) use of aspirin; Z79.84 Long term (current) use of oral hypoglycemic drugs; Z79.4 Long term (current) use of insulin; Z98.890 Other specified postprocedural states; Z89.419 Acquired absence of unspecified great toe; Z87.891 Personal history of nicotine dependence; Z87.19 Personal history of other diseases of the digestive system; Z80.1 Family history of malignant neoplasm of trachea, bronchus and lung; Z80.3 Family history of malignant neoplasm of breast
CPT/HCPCS: 45385; 82948; J2003; J2704; J7120

== ENCOUNTER 2025-04-27 07:05 | Outpatient (CLI) | payer MEDICARE, OTHER, SELFPAY ==
--- OUTSIDE RECORDS SUMMARY | 2025-02-15 03:30 | XMS_ITS ---
Author Organization [facility] Address [address] [facility] [address] [place], [place] [id number] Care Team Providers Care Placement Coordinator Name Role Phone CATHERINE MUSA Unavailable [phone] Cuate Dennison Unavailable Unavailable Allergies No Known Allergies REASON FOR VISIT Patient presents for at-risk foot care . The patient has painful toenails that are causing difficulty with ambulation and shoegear. The onset is gradual. The patient has diabetes mellitus Medications Medication SIG (Take, Route, Frequency, Duration) Notes Start Date End Date Status Aspirin 81 Active Encounters Encounter Location Date Provider Diagnosis [facility] [address] [place], [place] [id number] 02/15/2025 CATHERINE MUSA Tinea unguium B35.1 ; Pain in right toe(s) M79.674 ; Pain in left toe(s) M79.675 ; Atherosclerosis of [place] arteries of extremities with intermittent claudication, bilateral legs I70.213 and Type 2 diabetes mellitus with other circulatory complications E11.59 Assessments Encounter Date Diagnosis (ICD Code) Assessment Notes Treatment Notes Treatment Clinical Notes Section Notes 02/15/2025 Tinea unguium (ICD-10 - B35.1) NAIL DEBRIDEMENT: Nails 1-5 Bilateral were debrided extensively with nail nippers and emery board, reducing length and girth to pink healthy tissue with any subungual debris and necrotic tissue removed 02/15/2025 Pain in right toe(s) (ICD-10 - M79.674) 02/15/2025 Pain in left toe(s) (ICD-10 - M79.675) 02/15/2025 Atherosclerosis of [place] arteries of extremities with intermittent claudication, bilateral legs (ICD-10 - I70.213) 02/15/2025 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 The patient was instructed to check his feet daily to report any problems or signs of infection immediately. The patient was provided written information on Diabetic Foot Care as well as the Amputation Prevention Guide. Plan Of Treatment Treatment Notes Assessment Notes Tinea unguium NAIL DEBRIDEMENT: Na ils 1-5 Bilateral were debrided extensively with nail nippers and emery board, reducing length and girth to pink healthy tissue with any subungual debris and necrotic tissue removed Type 2 diabetes mellitus wit h other circulatory complications Diabetic Foot Care: The patient was educated on diabetes and the lower extremity. The patient was instructed to check his feet daily to report any problems or signs of infection immediately. The patient was provided written information on Diabetic Foot Care as well as the Amputation Prevention Guide. Next Appt Details Follow Up: 10 - 12 weeks, Re ason: At-Risk Foot care, sooner if problems develop. Provider Name:CATHERINE MUSA, 08:00:00 AM, [address], [address], [id number], Progress Notes * STEPHEN GREENE GDOB:1955 ([age] yo M)Acc No.[id number]:02/15/2025 Patient: STEPHEN DIXON Provider: Reba Musa DPM :1955 A ge:69 Y S ex:Male Date:02/15/2025 Address:[address] [place] [address] Subjective: * Chief Complaints: * 1 . Patient presents for at-risk foot care . The patient has painful toenails that are causing difficulty with ambulation and shoegear. The onset is gradual. The patient has diabetes mellitus. * HPI: H PI: General care P atient presents to the office for diabetic foot care. Patient states that their nails are thickened, elongated and painful. Patient states that it is aggravated by shoe gear. Onset is gradual., Patient denies taking prescription blood thinners but does take a daily aspirin., Date last seen by Dr. Dennison was 11/2024., Initials mf. * Medical History: Connor ramirez. * Family History: F ather: PRN - Father: . M other: PRN - Mother: . B rother: SIB - Brother: , :: Cancer,,known absent . S ister: SIB - Sister: . * Social History: M igrated Social History: M igrated Social History: Smoking Status : Former tobacco user , History of tobacco use :. * Medications: T aking Aspirin 81 , Medication List reviewed and reconciled with the patient * Allergies: N .K.D.A. Objective: * Vitals: * Examination: P hysical Examination: General appearance: A lert, pleasant, well-nourished and in no acute distress. D ermatologic: Skin findings: S kin is thin, atrophic and lacking pedal hair. Nail pathology: N ails 1, 2, 3, 4, and 5 bilateral are elongated, thick, discolored, and dystrophic with subungual debris. They are painful to palpation. ? V ascular: Dorsalis pedis pulse: 1 /4 b ilateral. Posterior tibial pulse: 0 /4 bilateral. Capillary refill: g reater than 3 seconds. Edema: N o edema bilateral. N eurologic: Gross sensation G rossly intact to light touch. There is negative Tinel's sign. M usculoskeletal: Muscle Strength M uscle strength is 5/5 in regards to dorsiflexion, plantarflexion, inversion, and eversion in bilateral lower extremities. ? Assessment: * Assessment: 1. T inea unguium - B35.1 (Primary) 2 . P ain in right toe(s) - M79.674? 3. P ain in left toe(s) - M79.675 4 . A therosclerosis of [place] arteries of extremities with intermittent claudication, bilateral legs - I70.213 5 . T ype 2 diabetes mellitus with other circulatory complications - E11.59 Plan: * Treatment: 2. T ype 2 diabetes mellitus with other circulatory complications Notes: Diabetic Foot Care: The patient was educated on diabetes and the lower extremity. The patient was instructed to check his feet daily to report any problems or signs of infection immediately. The patient was provided written information on Diabetic Foot Care as well as the Amputation Prevention Guide. * Procedure Codes: 1 1721 DEBRIDE NAIL, 6 OR MORE, Modifiers: Q8 * Preventive Medicine: Screenings: F all risk screening F all Risk Assessment: N o falls in the past year. * Follow Up: 1 0 - 12 weeks (Reason: At-Risk Foot care, sooner if problems develop.) * Billing Information: * Visit Code: * Procedure Codes: 05535 DEBRIDE NAIL, 6 OR MORE. Modifiers: Q8 * Electronic signature of CATHERINE MUSA DPM on 04/27/2025 at 07:09 AM CDT Sign off status: Pending * Provider: Reba Musa DPM Date: 0 02/15/2025 Generated for Donnell preciado/Ronnie/Dav on: 07:09 AM CDT History and Physical Notes * HPI (History of Present Illness) Category Sub-Category Detail Notes Category Not es HPI General care Patient presents to the office for diabetic foot care. Patient states that their nails are thickened, elongated and painful. Patient states that it is aggravated by shoe gear. Onset is gradual., Patient denies taking prescription blood thinners but does take a daily aspirin., Date last seen by Dr. Dennison was 11/2024., Initials mf Examination Category Sub-Category Detail Notes Category Not es Dermatologic Skin findings: Skin is thin, at rophic and lacking pedal hair Nail pathology: Nails 1, 2, 3, 4, an d 5 bilateral are elongated, thick, discolored, and dystrophic with subungual debris. They are painful to palpation Neurologic Gross sensation Grossly intact t o light touch. There is negative Tinel's sign Vascular Dorsalis pedis pulse: 1/4 bilateral Edema: No edema bilateral Capillary refill: greater than 3 secon ds Posterior tibial pulse: 0/4 bilateral Physical Examination General appearance: Alert, pleasant, well-nourished and in no acute distress Musculoskeletal Muscle Strength Muscle strength is 5/5 in regards to dorsiflexion, plantarflexion, inversion, and eversion in bilateral lower extremities
--- OUTSIDE RECORDS SUMMARY | 2025-04-27 07:09 | XMS_ITS | Patient Health Record ---
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 Name Role Phone LENCHO CATHERINE Unavailable [phone] Cuate Dennison Unavailable Unavailable Allergies No Known Allergies Reason For Referral No Information Medications Medication SIG (Take, Route, Frequency, Duration) Notes Start Date End Date Status Aspirin 81 Active Immunizations Vaccine Route Administration Date Status Comme nts Influenza, high dose seasonal Unknown 04/18/2023 Admini stered Vital Signs Height-cm 187.96 cm 05/11/2024 Weight-kg 117.48 kg 05/11/2024 Height 74.00 in 05/11/2024 Weight 259 lbs 05/11/2024 BMI 33.25 kg/m2 05/11/2024 Encounters Encounter Location Date Provider Diagnosis [facility] [address] [place], [place] [id number] 02/15/2025 CATHERINE MUSA Tinea unguium B35.1 ; Pain in right toe(s) M79.674 ; Pain in left toe(s) M79.675 ; Atherosclerosis of [place] arteries of extremities with intermittent claudication, bilateral legs I70.213 and Type 2 diabetes mellitus with other circulatory complications E11.59 [facility] [address] [place], [place] [id number] 05/11/2024 CATHERINE MUSA Tinea unguium B35.1 ; Pain in right toe(s) M79.674 ; Pain in left toe(s) M79.675 ; Atherosclerosis of [place] arteries of extremities with intermittent claudication, bilateral legs I70.213 and Type 2 diabetes mellitus with other circulatory complications E11.59 [facility] [address] [place] [id number] 08/10/2024 CATHERINE SNOOK Tinea unguium B35.1 ; Pain in right toe(s) M79.674 ; Pain in left toe(s) M79.675 ; Atherosclerosis of [place] arteries of extremities with intermittent claudication, bilateral legs I70.213 and Type 2 diabetes mellitus with other circulatory complications E11.59 [facility] [address] [place] [id number] 11/09/2024 CATHERINE SNOOK Tinea unguium B35.1 ; Pain in right toe(s) M79.674 ; Pain in left toe(s) M79.675 ; Atherosclerosis of [place] arteries of extremities with intermittent claudication, bilateral legs I70.213 and Type 2 diabetes mellitus with other circulatory complications E11.59 Assessments Encounter Date Diagnosis (ICD Code) Assessment Notes Treatment Notes Treatment Clinical Notes Section Notes 05/11/2024 Tinea unguium (ICD-10 - B35.1) NAIL DEBRIDEMENT: Nails 1-5 Bilateral were debrided extensively with nail nippers and emery board, reducing length and girth to pink healthy tissue with any subungual debris and necrotic tissue removed 08/10/2024 Tinea unguium (ICD-10 - B35.1) NAIL DEBRIDEMENT: Nails 1-5 Bilateral were debrided extensively with nail nippers and emery board, reducing length and girth to pink healthy tissue with any subungual debris and necrotic tissue removed 11/09/2024 Tinea unguium (ICD-10 - B35.1) NAIL DEBRIDEMENT: Nails 1-5 Bilateral were debrided extensively with nail nippers and emery board, reducing length and girth to pink healthy tissue with any subungual debris and necrotic tissue removed 02/15/2025 Tinea unguium (ICD-10 - B35.1) NAIL DEBRIDEMENT: Nails 1-5 Bilateral were debrided extensively with nail nippers and emery board, reducing length and girth to pink healthy tissue with any subungual debris and necrotic tissue removed 11/09/2024 Pain in right toe(s) (ICD-10 - M79.674) 02/15/2025 Pain in right toe(s) (ICD-10 - M79.674) 08/10/2024 Pain in right toe(s) (ICD-10 - M79.674) 05/11/2024 Pain in right toe(s) (ICD-10 - M79.674) 05/11/2024 Pain in left toe(s) (ICD-10 - M79.675) 08/10/2024 Pain in left toe(s) (ICD-10 - M79.675) 02/15/2025 Pain in left toe(s) (ICD-10 - M79.675) 11/09/2024 Pain in left toe(s) (ICD-10 - M79.675) 11/09/2024 Atherosclerosis of [place] arteries of extremities with intermittent claudication, bilateral legs (ICD-10 - I70.213) 02/15/2025 Atherosclerosis of [place] arteries of extremities with intermittent claudication, bilateral legs (ICD-10 - I70.213) 05/11/2024 Atherosclerosis of [place] arteries of extremities with intermittent claudication, bilateral legs (ICD-10 - I70.213) 08/10/2024 Atherosclerosis of [place] arteries of extremities with intermittent claudication, bilateral legs (ICD-10 - I70.213) 05/11/2024 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 The patient was instructed to check his feet daily to report any problems or signs of infection immediately. The patient was provided written information on Diabetic Foot Care as well as the Amputation Prevention Guide. 08/10/2024 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 The patient was instructed to check his feet daily to report any problems or signs of infection immediately. The patient was provided written information on Diabetic Foot Care as well as the Amputation Prevention Guide. 11/09/2024 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 The patient was instructed to check his feet daily to report any problems or signs of infection immediately. The patient was provided written information on Diabetic Foot Care as well as the Amputation Prevention Guide. 02/15/2025 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 The patient was instructed to check his feet daily to report any problems or signs of infection immediately. The patient was provided written information on Diabetic Foot Care as well as the Amputation Prevention Guide. Plan Of Treatment Next Appt Details Provider Name:CATHERINE MUSA, 08:00:00 AM, [address] [facility] [address], [place], [place], [id number], Insurance Providers Payer Name Payer Address Payer Phone Subscriber Number Group Number Insured Name Patient Relationship to Insured Coverage Start Date Coverage End Date Medicare Part B [facility] [address] [place] [phone] [id number] STEPHEN GREENE Self - patient is the insured [employer] [facility] [place] [address] [id number] STEPHEN GREENE Self - patient is the insured Medical (General) History Medical History History ICD Code Diabetic
[2025-04-27 07:51] LABS: Hemoglobin A1C 7.1 % (<5.7)
[2025-04-27 08:01] LABS: Alanine Aminotransferase 28 U/L (6-50); Albumin Level 4.3 g/dL (3.5-5.1); Alkaline Phosphatase 69 U/L (38-126); Anion Gap 8 mmol/L (4-12); Aspartate Amino Transferase 30 U/L (17-59); Bilirubin,Total 0.5 mg/dL (0.2-1.3); Blood Urea Nitrogen 28 mg/dL (9-20); Calcium 9.1 mg/dL (8.4-10.2); Carbon Dioxide 26 mmol/L (22-30); Chloride 102 mmol/L (98-107); Estimated Glomerular Filt Rate 51; Glucose 180 mg/dL (65-110); Potassium 4.7 mmol/L (3.4-5.0); Sodium 136 mmol/L (137-145); Total Protein 7.6 g/dL (6.3-8.2)
== END 2025-04-27 07:06 | disposition home or self-care (01) ==
LOC: ANHLAB 07:07
PROVIDERS: PCP Family Medicine; Visit Provider Physician Assistant
DX: E11.65 Type 2 diabetes mellitus with hyperglycemia (principal); I10 Essential (primary) hypertension; Z79.4 Long term (current) use of insulin
CPT/HCPCS: 36415; 80053; 83036

== ENCOUNTER 2025-05-27 07:35 | Outpatient (CLI) | payer MEDICARE, OTHER, SELFPAY ==
--- NOTE | ~2025-05-27 | XR_ITS ---
EXAMINATION: XR knee LT min 4V, 05/27/2025 7:40 KITCHEN LEAD HISTORY: M25.562 - Pain in left knee COMPARISON: No comparisons available. Findings: No acute fracture or malalignment. Moderate tricompartmental degenerative changes Soft tissues unremarkable. Impression: No acute fracture or malalignment. Reviewed, dictated and finalized at location P. HEN LEAD Impression: No acute fracture or malalignment.
== END 2025-05-27 07:36 | disposition home or self-care (01) ==
LOC: MICIMG 07:37
PROVIDERS: PCP Family Medicine; Visit Provider Physician Assistant
DX: M25.562 Pain in left knee (principal)
CPT/HCPCS: 73564